=== PATIENT | male | born 1950 | race Caucasian/White ===

== ENCOUNTER 2020-05-21 16:08 | Emergency (ER) | payer OTHER, SELFPAY ==
[2020-05-21 16:10] VITALS: BP 146/82; PULSE 95; RESP 18; TEMP 36.5; O2SAT 95; BMI 30.2
[2020-05-21] MEDS: lidocaine 1% INJ 20 mL 4 ML INTRADERMA (16:25)
[2020-05-21 16:32] VITALS: BP 125/80; O2SAT 94
--- NOTE | 2020-05-21 16:33 | W.ED.WOUNDLC ---
HPI - Wound/Laceration General: Chief Complaint: Wound/Laceration Stated Complaint: finger lac Time Seen by Provider: 05/21/20 16:13 History of Present Illness: HPI narrative: Patient cut left forefinger today while cutting a blockage cheese. Onset (ago): minute(s) Extremity Location: Left: hand Place: home Patient tetanus UTD: Yes Context: accidental Associated symptoms: Reports no associated symptoms Review of Systems Skin/Breast: Reports: other (Laceration left 4 finger from a knife.) Physical Exam Psych: COMMON NORMALS: mental status grossly normal Skin: OTHER: 1 inch laceration left fourth finger MIP area palmar surface horizontal, flexor and extensor tendons intact full range of motion of finger Procedures Laceration Laceration 1: Site: hand Side (If applicable): left Size (cm): 2 Description: linear Depth: simple, single layer Local Anesthetic: lidocaine 1% Amount of anesthesia used (mL): 2 Pre-repair: irrigated extensively Size (cm): 4-0 Number of sutures: 4 Technique: simple, interrupted Course Vital Signs: Vital signs: Vital Signs Temperature 97.7 F 05/21/20 16:10 Pulse Rate 95 05/21/20 16:10 Respiratory Rate 18 05/21/20 16:10 Blood Pressure 125/80 05/21/20 16:32 Pulse Oximetry 94 05/21/20 16:32 Discharge Plan Discharge Patient Disposition: Home Clinical Impression: Laceration Condition: Stable Discharge Orders: Discharge Order (Routine); Ordered 05/21/20 Ordered By: Anthony Danielle Discharge Diet: Usual diet Discharge Activity: Resume usual activity Patient Instructions: Laceration (ED) Activity Restrictions/Additional Instructions: Keep area clean and dry. Sutures out in 7 days. Observe for signs and symptoms of infection that develops follow-up your local provider come back to the ER. Coding Level of Care Code ED Fire And Safety Helper for Elinor Dominguez
[2020-05-21 16:44] VITALS: BP 125/73; PULSE 89; RESP 18; O2SAT 94
--- NOTE | 2020-05-29 09:20 | PC.NURSE ---
Patient returned to ER to have sutures removed. Sutures removed at this time.
== END 2020-05-21 16:41 | disposition home or self-care (01) ==
PROVIDERS: Emergency Provider Nurse Practitioner Family
DX: S61.215A Laceration without foreign body of left ring finger without damage to nail, initial encounter (principal); W26.0XXA Contact with knife, initial encounter
CPT/HCPCS: 12001; 12345; 99281; 99282

== ENCOUNTER 2021-03-23 09:20 | Observation (INO) | payer OTHER, SELFPAY ==
[2021-03-23] VITALS (10 sets, daily range): BP systolic 110–165; BP diastolic 67–90; PULSE 61–108; RESP 17–24; TEMP 36.4–37.4; O2SAT 91–95; BMI 29.5
--- NOTE | 2021-03-23 09:31 | ECG_ITS ---
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 [id number] f
--- NOTE | 2021-03-23 09:31 | XR_ITS ---
WS: [id number] Portable AP upright chest, 03/23/2021 Clinical Data: chest pain Comparison: None. Findings: No nodules, masses or effusions are seen. The heart is normal. The pulmonary vascularity is not increased. No pneumonia or pneumothorax is seen. The aortic arch and descending aorta show mild calcification and tortuosity. Monitor leads on the chest wall. XR/XR chest 1V portable [id number] Impression: Atherosclerosis.
--- NOTE | 2021-03-23 09:33 | W.ED.CHESTPA ---
HPI - Chest Pain General: Chief Complaint: General Medical Stated Complaint: syncopial episodes, chronic chest pains Time Seen by Provider: 03/23/21 09:27 Source: patient Mode of arrival: ambulatory Limitations: no limitations History of Present Illness: HPI narrative: Patient states he has substernal chest pain that started this morning. However, patient states that he has chronic chest pain. Patient states he has had a few episodes of syncope over the last few weeks. He states he had two episodes of syncope this morning. He states he was standing and passed out. He denies any injury. He denies any shortness of breath. He states he has had no previous heart problems. He states on January 26 he was taken off blood thinners. He does not know why he was on blood thinners. Possible history includes diabetes mellitus and hypertension. MD complaint: chest pain and other (Syncope) Pertinent past history: other (Diabetes mellitus and hypertension) Onset (ago): hour(s) (7) Timing of current episode: episodic Prior episodes: Yes Onset: during rest Pain location: substernal Pain radiation: none Severity: mild Quality: aching Relieving factors: nothing Exacerbating factors: nothing Associated symptoms: Reports no associated symptoms and syncope; Deny abdominal pain, dyspnea, fever(s), nausea, palpitations or vomiting Treatment prior to arrival: none Risk Factors: Coronary artery disease risk factors: diabetes and hypertension Thoracic aortic dissection risk factors: none Review of Systems Const: Denies: fever(s) or chills Eyes: Denies: change in vision ENMT: Denies: throat pain Card: Reports: chest pain and syncope; Denies: palpitations Resp: Denies: dyspnea or wheezing GI: Denies: abdominal pain, nausea or vomiting : Denies: flank pain Musc: Denies: neck pain or back pain Skin/Breast: Denies: rash or pruritus Neuro: Denies: headache(s) or numbness in extremities Psych: Denies: anxiety Marck/Lymph: Denies: enlarged lymph nodes PFS ED Supplemental [facility] Information: Past medical history of type 2 diabetes mellitus, hypertension Physical Exam Const: COMMON NORMALS: no acute distress, patient oriented x3, no limitations and well nourished EXAM LIMITATIONS: altered mental status GENERAL APPEARANCE: cooperative and comfortable ORIENTATION/CONSCIOUSNESS: Yes awake, Yes oriented to person, Yes oriented to place and Yes oriented to time HENMT: COMMON NORMALS: normocephalic and atraumatic HEAD & SCALP: normocephalic and atraumatic FACE & SINUS: normal facial exam Eye: COMMON NORMALS: EOMs intact bilaterally Neck/C-Spine: COMMON NORMALS: full ROM, no lymphadenopathy, supple and no meningeal signs GENERAL: Yes normal visual inspection and No JVD Lymph: LYMPHATIC: no lymphadenopathy noted Chest: COMMONS NORMALS: normal inspection of the chest and normal palpation of entire chest wall CHEST: No Ecchymosis present and No rash Resp: COMMON NORMALS: normal respiratory effort, No retractions and clear to auscultation bilaterally EFFORT & INSPECTION: No respiratory distress AUSCULTATION: clear to auscultation bilaterally Cardio: COMMON NORMALS: regular rate, regular rhythm and Peripheral pulses 2+ throughout JUGULAR VENOUS DISTENTION: no JVD RATE: regular rate, tachycardic and Other (Mild tachycardia) RHYTHM: regular rhythm PERIPHERAL PULSES: Peripheral pulses 2+ throughout GI: COMMON NORMALS: Normal to inspection, nondistended, normoactive bowel sounds present and non-tender AUSCULTATION: Yes normoactive bowel sounds : COMMON NORMALS: Yes no CVA tenderness BLADDER/KIDNEY EXAM: Yes no CVA tenderness Back/Pelvis: COMMON NORMALS: no CVA tenderness Extremity: COMMON NORMALS: normal to inspection, full ROM and capillary refill normal Neuro: COMMON NORMALS: patient oriented x3, CN's II-XII intact bilaterally, no focal motor deficits and no sensory deficits noted SENSORIUM/ORIENTATION: Yes oriented to person, Yes oriented to place and Yes oriented to time MENINGEAL SIGNS: Yes no meningeal signs Psych: COMMON NORMALS: mental status grossly normal and Normal thought process present THOUGHT PROCESS: Normal thought process present Skin: COMMON NORMALS: no rashes or lesions noted and no wounds GENERAL SKIN EXAM: no rashes or lesions noted Course Vital Signs: Vital signs: Vital Signs Temperature 97.5 F L 03/23/21 09:27 Pulse Rate 61 03/23/21 09:42 Respiratory Rate 18 03/23/21 09:50 Blood Pressure 165/79 03/23/21 09:42 Pulse Oximetry 95 03/23/21 09:42 MDM - Chest Pain MDM Narrative: Medical decision making narrative: 1009 telemetry shows heart rate 90 and normal sinus rhythm. Blood pressure 121/81 1026: Discussed with hospitalist Dr. Panchal. He will admit the patient but will see the patient in the emergency room first before deciding which bed he will go to. 1046: Dr. Panchal asked that I order CT of the brain due to syncopal event and possible head injury. Patient does not remember hitting his head or have any headache at this time. Patient will be observation to the cardiac stepdown unit. Lab Data: Attestation: I reviewed the patient's lab results. Labs: Lab Results 03/23/21 03/23/21 03/23/21 Range/Units 09:40 09:40 09:40 WBC 4.6 (4.0-10.0) 10^3/ uL RBC 5.09 (4.1-5.3) 10^6/u L Hgb 15.3 (11.7-16.6) g/dL Hct 45.4 (42.0-52.0) % MCV 89.2 (80-94) fL MCH 30.1 (28.0-34.0) pg MCHC 33.7 (30.0-36.0) g/dL RDW 13.2 (12.1-15.1) % Plt Count 193 (130-400) 10^3/c mm MPV 10.5 H (7.4-10.4) fL Neut % (Auto) 63.4 % Lymph % (Auto) 19.6 % [place] % (Auto) 16.3 % Eos % (Auto) 0.0 % Baso % (Auto) 0.7 % Neut # (Auto) 2.92 (1.8-7.7) 10^3/u L Lymph # (Auto) 0.9 (0.8-4.8) 10^3/u L [place] # (Auto) 0.8 (0.2-0.9) 10^3/u L Eos # (Auto) 0.0 (0.0-0.8) 10^3/u L Baso # (Auto) 0.0 (0.0-0.1) 10^3/u L Nucleated RBC % (a uto) 0 % Nucleated RBCs # 0.0 /100WBC PT 13.40 (12.1-14.9) SECO NDS INR 0.99 (0.8-1.2) APTT 28.6 (23.9-36.7) SECO NDS Sodium 135 L (136-145) mmol/L Potassium 4.2 (3.5-5.1) mmol/L Chloride 99 (98-107) mmol/L Carbon Dioxide 26 (22-29) mmol/L Anion Gap 14.2 (5-19) BUN 13 (8-23) mg/dL Creatinine 1.0 (0.7-1.2) mg/dL GFR Calculation 73.9 L (90-130) mL/min Glucose 189 H (65-115) mg/dL Calculated Osmolal ity 285 (285-295) mOsm/k g Calcium 9.0 (8.5-10.5) mg/dL Troponin T Baselin e (0-15) ng/L NT-Pro-B Natriuret Pep 30 (0-125) pg/mL 03/23/21 Range/Units 09:40 WBC (4.0-10.0) 10^3/ uL RBC (4.1-5.3) 10^6/u L Hgb (11.7-16.6) g/dL Hct (42.0-52.0) % MCV (80-94) fL MCH (28.0-34.0) pg MCHC (30.0-36.0) g/dL RDW (12.1-15.1) % Plt Count (130-400) 10^3/c mm MPV (7.4-10.4) fL Neut % (Auto) % Lymph % (Auto) % [place] % (Auto) % Eos % (Auto) % Baso % (Auto) % Neut # (Auto) (1.8-7.7) 10^3/u L Lymph # (Auto) (0.8-4.8) 10^3/u L [place] # (Auto) (0.2-0.9) 10^3/u L Eos # (Auto) (0.0-0.8) 10^3/u L Baso # (Auto) (0.0-0.1) 10^3/u L Nucleated RBC % (a uto) % Nucleated RBCs # /100WBC PT (12.1-14.9) SECO NDS INR (0.8-1.2) APTT (23.9-36.7) SECO NDS Sodium (136-145) mmol/L Potassium (3.5-5.1) mmol/L Chloride (98-107) mmol/L Carbon Dioxide (22-29) mmol/L Anion Gap (5-19) BUN (8-23) mg/dL Creatinine (0.7-1.2) mg/dL GFR Calculation (90-130) mL/min Glucose (65-115) mg/dL Calculated Osmolal ity (285-295) mOsm/k g Calcium (8.5-10.5) mg/dL Troponin T Baselin e 14 (0-15) ng/L NT-Pro-B Natriuret Pep (0-125) pg/mL Imaging Data^: CXR: Attestation: I personally reviewed and interpreted this imaging study as follows: My impression: Chest x-ray appears normal. Nothing acute Radiologist's impression: [address] [id number] ReportSigned Patient: Ramón Armando II #: [id number]: 1950Acct#:[id number]/Sex: 70 / MADM Date: 03/23/21Loc: ERRoom/Bed:Attending Dr: Ordering Provider/Ordering MD: Amado Davis MD Date of Service: 03/23/21 Procedure(s): XR chest 1V portable [id number] Accession Number(s): [id number] Report Number: [id number] WS: [id number] Portable AP upright chest, 03/23/2021 Clinical Data: chest pain Comparison: None. Findings: No nodules, masses or effusions are seen. The heart is normal. The pulmonary vascularity is not increased. No pneumonia or pneumothorax is seen. The aortic arch and descending aorta show mild calcification and tortuosity. Monitor leads on the chest wall. XR/XR chest 1V portable [id number] Impression: Atherosclerosis. Dictated By:Jocelyn Peck MDSigned By:Jocelyn Peck MDSigned Date/Time:03/23/21 0947 EKG Data^: EKG 1: Attestation: I personally reviewed and interpreted this EKG as follows: EKG interpretation date: 03/23/21 EKG interpretation time: 09:38 Prior EKG tracings: not available for review Interpretation: Sinus tachycardia with heart rate of 105. Mild left axis, normal MS interval. Normal QRS interval, normal QT interval, normal P waves, normal T waves. Normal ST segment. No previous EKG to compare to. 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
[2021-03-23 09:45] LABS: Basophils % 0.7 %; Hematocrit 45.4 % (42.0-52.0); Hemoglobin 15.3 g/dL (11.7-16.6); Lymphocytes # 0.9 10^3/uL (0.8-4.8); Lymphocytes % 19.6 %; Mean Corpuscular HGB Conc 33.7 g/dL (30.0-36.0); Mean Corpuscular Hemoglobin 30.1 pg (28.0-34.0); Mean Corpuscular Volume 89.2 fL (80-94); Mean Platelet Volume 10.5 fL (7.4-10.4); Monocytes # 0.8 10^3/uL (0.2-0.9); Monocytes % 16.3 %; Neutrophils # 2.92 10^3/uL (1.8-7.7); Neutrophils % 63.4 %; Nucleated Red Blood Cells % 0 %; Platelet Count 193 10^3/cmm (130-400); Red Blood Count 5.09 10^6/uL (4.1-5.3); Red Cell Distribution Width 13.2 % (12.1-15.1); White Blood Count 4.6 10^3/uL (4.0-10.0)
[2021-03-23] MEDS: aspirin 81 mg Chew Tablet 324 MG PO (09:49)
[2021-03-23] MEDS: morphine 4 mg/mL SDV 1 mL 2 MG IVP (09:50)
[2021-03-23 10:02] LABS: INR 0.99 (0.8-1.2)
[2021-03-23 10:03] LABS: Partial Thromboplastin Time 28.6 SECONDS (23.9-36.7)
[2021-03-23 10:12] LABS: Troponin(5th) Baseline 14 ng/L (0-15)
[2021-03-23 10:20] LABS: Anion Gap 14.2 (5-19); Blood Urea Nitrogen 13 mg/dL (8-23); Carbon Dioxide 26 mmol/L (22-29); Chloride 99 mmol/L (98-107); Creatinine Clr Calc Pharmacy 76.5209; Glomerular Filtration Rate 73.9 mL/min (90-130); Glucose 189 mg/dL (65-115); NT Pro B Type Natriuretic Pept 30 pg/mL (0-125); Osmolality Calculated 285 mOsm/kg (285-295); Potassium 4.2 mmol/L (3.5-5.1); Sodium 135 mmol/L (136-145)
--- NOTE | 2021-03-23 10:46 | CT_ITS ---
WS: [id number] CT HEAD TECHNIQUE: Noncontrast CT of the head obtained from the skullbase to the vertex. CLINICAL INFORMATION: syncope; head injury COMPARISON: None. DLP: 968.[address] scans at [facility] use at least one of these dose optimization techniques: automat ed exposure control; mA and/or kV adjustment per patient size (includes targeted exams where dose is matched to clinical indication); or iterative reconstruction. FINDINGS: No evidence of intracranial hemorrhage or mass effect. Ventricular system and basal cisterns are alcaraz nt. Mild small vessel changes with mild parenchymal volume loss. Chronic lacunar infarcts in the righ t basal ganglia. No extra-axial fluid collections. No evidence of mass or mass effect. Normal pierre-wh ite differentiation. Paranasal sinuses and mastoid air cells are well aerated. .Normal visualized soft tissues. CT/CT head wo con* [id number] IMPRESSION: 1. No evidence of intracranial hemorrhage or mass effect. 2. Mild small vessel changes. Mild parenchymal volume loss. 3. Chronic lacunar infarct right basal ganglia. 4. No acute intracranial findings.
--- NOTE | 2021-03-23 11:04 | PM.HP ---
Providers/Chief Complaint Primary Care Provider: Hunter Davidson CRNA Chief Complaint: Chest Pain, SOB History of Present Illness Ramón Armando II is a 70 year old male who presents to the emergency department with concerns of 3 syncopal episodes today. He reports he is also had a little bit of chest discomfort. In regards to the syncopal episodes the first occurred when he was getting up to urinate. The second happened when he was making some coffee. The third when he had gone downstairs with his coffee. He reports he gets some warning with the episodes, with everything turning dark around him. Most of the episodes he has been able to lower himself to the ground. He is out an unknown amount of time. He denies any loss of bowel or bladder control. There were no witnesses to the incident. He denies any previous history of syncope. In regards to his chest discomfort he reports he frequently has right-sided chest pain, it is usually sharp or achy, and can last minutes. This has been going on for many years. He denies any previous cardiac work-up. He reports he has a significant anxiety problem which may contribute to some of its conditions. He denies any recent fever. He reports he is not had any cough, or congestion. He has not had Covid, nor is he had a vaccine for it. He denies any exposure. He reports he was on a blood thinner several months ago but cannot remember the name of it, or why it was prescribed. He gives this excuse for most of his medical problems. He felt like he was confused when the episodes happened this morning. He reports he had no focal weakness, or dysarthria. Review of Systems General: Reports: 10 or more systems reviewed and unremarkable except in HPI and below Const: Denies: fever(s) or chills Eyes: Denies: change in vision ENMT: Denies: throat pain Card: Reports: chest pain Resp: Denies: dyspnea GI: Denies: abdominal pain : Denies: flank pain Musc: Denies: neck pain Skin/Breast: Denies: rash Neuro: Denies: headache(s) Psych: Reports: anxiety; Denies: depression Endo: Denies: polyuria Marck/Lymph: Denies: easy bruising All/Imm: Denies: urticaria Medications/Allergies Home Medications Medication Instructions Recorded Confirmed Last Taken Type Vitamin B-12 1 tab PO DAILY@0700 03/23/21 03/23/21 03/22/21 History aspirin [Aspir-81] 81 mg PO DAILY@0700 03/23/21 03/23/21 03/22/21 History bupropion HCl 150 mg PO DAILY@0700 03/23/21 03/23/21 03/22/21 History gabapentin 900 mg PO TID@07,12,19 03/23/21 03/23/21 03/22/21 History latanoprost (PF) 1 drp OPHTHALMIC (EYE) BEDTIME 03/23/21 03/23/21 Unknown History metformin 500 mg PO BID@0700,1900 03/23/21 03/23/21 03/22/21 History nitroglycerin 0.4 mg SUBLINGUAL Q5M PRN 03/23/21 03/23/21 Unknown History omeprazole 20 mg PO DAILY@0700 03/23/21 03/23/21 03/22/21 History rosuvastatin 40 mg PO DAILY@0703/23/21 03/23/21 03/22/21 History Allergies Allergy/AdvReac Type Severity Reaction Status Date / Time Penicillins Allergy ADR-Agitate Verified 05/21/20 16:14 d PFSH Acute PFSH: Medical History (Updated 03/23/21 @ 11:17 by Juan Panchal MD) Anxiety Hyperlipidemia Type 2 diabetes mellitus Surgical History (Updated 03/23/21 @ 11:10 by Juan Panchal MD) History of cataract surgery History of nasal surgery Family History (Updated 03/23/21 @ 11:11 by Juan Panchal MD) Other Cancer Dementia Stroke Social History (Updated 03/23/21 @ 11:11 by Juan Panchal MD) Smoking and tobacco status: former smoker Alcohol intake: never Vitals/I&O/Wt Last Vital Signs Temp 97.5 F L 03/23/21 09:27 Pulse 61 03/23/21 09:42 Resp 18 03/23/21 09:50 BP 165/79 03/23/21 09:42 Pulse Ox 95 03/23/21 09:42 Weight last 48 hrs Weight 90.718 kg Physical Exam Narrative: EXAM NARRATIVE: General exam is no apparent distress. He denies any chest discomfort currently. HEENT: Pupils equally round. Oropharynx clear. Neck is supple no lymphadenopathy or thyromegaly Cardiovascular regular rate and rhythm without murmur, no S3 or S4 Lungs clear to auscultation bilaterally. No wheezing or crackles Abdomen is soft with positive bowel sounds. No obvious organomegaly. is deferred Extremities no cyanosis clubbing or edema, cap refill brisk Skin no rash Neuro no obvious focal deficits Data : 03/23/21 09:40 03/23/21 09:40 Other data: PT and PTT are normal Baseline troponin is 14, BNP 30, calcium normal Chest x-ray no infiltrate, atherosclerosis is noted in the aortic knob EKG demonstrates sinus rhythm, left axis deviation, small Q waves inferiorly in 3 and aVF. No obvious acute changes. A&P Assessment and plan (1) Syncope and collapse: Etiology uncertain. He has not had any new medications. Check CT head Telemetry monitoring Check echocardiogram Orthostatic blood pressures Check TSH Check magnesium level Further orders to follow as appropriate Check dimer. If elevated check CTA Status: Acute (2) Chest pain at rest: Patient reports he has chronic chest pain happenings every several weeks, right side, that is similar to his pain he had today. He has never had any work-up of his chest discomfort, and does not have a completely normal EKG. Aspirin, statin Arrange for nuclear stress testing tomorrow. 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 Continue home medications. Full code Lovenox for DVT prophylaxis We will request old records regarding his medical conditions as he is not a great historian. Attestations Medical Necessity Statement*: Will need less than 2 midnight stay for evaluation of syncope, and chest discomfort Time Spent in Patient Care: Greater than 35 minutes Coding Level of Care Code Acute Stereotyper Helper for [facility] Diagnoses Syncope and collapse R55 Chest pain at rest R07.9 Type 2 diabetes mellitus E11.69 Diabetes mellitus complication status: with other specified complication Diabetes mellitus skilled nursing insulin use: unspecified skilled nursing insulin use status Hyperlipidemia E78.5
--- NOTE | 2021-03-23 11:14 | USCV_ITS ---
Ramón Armando II Age: 70 Gender: M : 1950 Exam Date: 03/23/2021 11:59 Ordering Phys: Juan Panchal MD Technologist: Tomasa Hernandez Exam Location: [facility] [place] Indication: SYNCOPE BP: 133 / 91 HR: 85 Rhythm: Sinus Technical Quality: Technically difficult study MEASUREMENTS (Male / Female) Normal Values 2D ECHO LV Diastolic Diameter PLAX 3.9 cm 4.2 - 5.9 / 3.9 - 5.3 cm LV Systolic Diameter PLAX 2.6 cm LV Chamber Size 3.9 cm IVS Diastolic Thickness 1.3 cm 0.6 - 1.0 / 0.6 - 0.9 cm IVS Systolic Thickness 1.3 cm LVPW Diastolic Thickness 1.6 cm 0.6 - 1.0 / 0.6 - 0.9 cm LVPW Systolic Thickness 1.7 cm RV Chamber Size 3.1 cm LVOT Diameter 2.2 cm LV Ejection Fraction 2D Teich 59.9 % LV Ejection Fraction MOD 2C 69.2 % LV Ejection Fraction 2C AL 67.8 % LA Diameter 3.3 cm LA Width 3.4 cm LA Height 4.1 cm RA Width 2.9 cm RA Height 3.5 cm Aorta at Sinotubular Diameter 3.0 cm M-MODE LV Diastolic Diameter MM 4.4 cm 4.2 - 5.9 / 3.9 - 5.3 cm LV Systolic Diameter MM 2.7 cm LV Ejection Fraction MM Teich 70.7 % IVS Diastolic Thickness MM 1.6 cm 0.6 - 1.0 / 0.6 - 0.9 cm IVS Systolic Thickness MM 1.8 cm LVPW Diastolic Thickness MM 1.2 cm 0.6 - 1.0 / 0.6 - 0.9 cm LVPW Systolic Thickness MM 1.4 cm Aortic Annulus Diameter 3.8 cm LA Ao Ratio MM 1.0 MV E Point Septal Separation 0.4 cm DOPPLER AV Peak Velocity 108.0 cm/s LVOT Peak Velocity 74.0 cm/s AV Area Cont Eq vti 2.9 cm squared AV Area Cont Eq pk 2.5 cm squared MV Area PHT 4.1 cm squared Mitral E to A Ratio 0.8 MV E' Velocity 37.0 cm/s Mitral E to MV E' Ratio 12.3 Mitral E to LV E' Lateral Ratio 11.7 Mitral E to LV E' Septal Ratio 13.0 TR Peak Velocity 147.9 cm/s TR Peak Gradient 8.7 mmHg TR Mean Velocity 121.8 cm/s TR Mean Gradient 6.2 mmHg TR Velocity Time Integral 30.4 cm TV Peak E Velocity 53.0 cm/s Right Atrial Pressure 3.0 mmHg Pulmonary Artery Systolic Pressu 11.7 mmHg PV Peak Velocity 61.0 cm/s RV Acceleration Time 0.1 s RV Ejection Time 0.3 s RV AcT/ET 0.4 FINDINGS Left Ventricle This is a limited quality echocardiogram because of poor ultrasonic windows. LV is normal in size. LV systolic function is grossly normal. Regional wall motion abnormalities cannot be assessed because of poor visualization. Grade 1 diastolic dysfunction is noted. Right Ventricle Grossly normal in size and function Right Atrium Not well-visualized Left Atrium Normal in size Mitral Valve Grossly normal Aortic Valve Grossly normal Tricuspid Valve Not well-visualized Pulmonic Valve Not visualized Pericardium Gorssly normal Aorta Normal in size CONCLUSIONS This is a limited quality echocardiogram because of poor ultrasonic windows. LV is normal in size. LV systolic function is grossly normal. Regional wall motion abnormalities cannot be assessed because of poor visualization. Grade 1 diastolic dysfunction is noted. Valves are not well visualized however no gross abnormalities. No comparison studies are available. Anand Regalado MD (Electronically Signed) Final Date: 23 March 2021 17:32 S
--- NOTE | 2021-03-23 11:29 | W.ED.GENADLT ---
HPI - General Adult General: Chief complaint: General Medical Stated complaint: syncopial episodes, chronic chest pains Time Seen by Provider: 03/23/21 09:27 Source: patient Mode of arrival: ambulatory Limitations: no limitations PFSH ED PFSH: Medical History (Updated 03/23/21 @ 11:17 by Juan Panchal MD) Anxiety Hyperlipidemia Type 2 diabetes mellitus Surgical History (Updated 03/23/21 @ 11:10 by Juan Panchal MD) History of cataract surgery History of nasal surgery Family History (Updated 03/23/21 @ 11:11 by Juan Panchal MD) Other Cancer Dementia Stroke Social History (Updated 03/23/21 @ 11:11 by Juan Panchal MD) Smoking and tobacco status: former smoker Alcohol intake: never Course Vital Signs: Vital signs: Vital Signs Temperature 97.5 F L 03/23/21 09:27 Pulse Rate 61 03/23/21 09:42 Respiratory Rate 18 03/23/21 09:50 Blood Pressure 165/79 03/23/21 09:42 Pulse Oximetry 95 03/23/21 09:42 [facility] - General Adult Lab Data: Labs: Lab Results 03/23/21 03/23/21 03/23/21 Range/Units 09:40 09:40 09:40 WBC 4.6 (4.0-10.0) 10^3/ uL RBC 5.09 (4.1-5.3) 10^6/u L Hgb 15.3 (11.7-16.6) g/dL Hct 45.4 (42.0-52.0) % MCV 89.2 (80-94) fL MCH 30.1 (28.0-34.0) pg MCHC 33.7 (30.0-36.0) g/dL RDW 13.2 (12.1-15.1) % Plt Count 193 (130-400) 10^3/c mm MPV 10.5 H (7.4-10.4) fL Neut % (Auto) 63.4 % Lymph % (Auto) 19.6 % [place] % (Auto) 16.3 % Eos % (Auto) 0.0 % Baso % (Auto) 0.7 % Neut # (Auto) 2.92 (1.8-7.7) 10^3/u L Lymph # (Auto) 0.9 (0.8-4.8) 10^3/u L [place] # (Auto) 0.8 (0.2-0.9) 10^3/u L Eos # (Auto) 0.0 (0.0-0.8) 10^3/u L Baso # (Auto) 0.0 (0.0-0.1) 10^3/u L Nucleated RBC % (a uto) 0 % Nucleated RBCs # 0.0 /100WBC PT 13.40 (12.1-14.9) SECO NDS INR 0.99 (0.8-1.2) APTT 28.6 (23.9-36.7) SECO NDS Sodium 135 L (136-145) mmol/L Potassium 4.2 (3.5-5.1) mmol/L Chloride 99 (98-107) mmol/L Carbon Dioxide 26 (22-29) mmol/L Anion Gap 14.2 (5-19) BUN 13 (8-23) mg/dL Creatinine 1.0 (0.7-1.2) mg/dL GFR Calculation 73.9 L (90-130) mL/min Glucose 189 H (65-115) mg/dL Calculated Osmolal ity 285 (285-295) mOsm/k g Calcium 9.0 (8.5-10.5) mg/dL Troponin T Baselin e (0-15) ng/L NT-Pro-B Natriuret Pep 30 (0-125) pg/mL 03/23/21 Range/Units 09:40 WBC (4.0-10.0) 10^3/ uL RBC (4.1-5.3) 10^6/u L Hgb (11.7-16.6) g/dL Hct (42.0-52.0) % MCV (80-94) fL MCH (28.0-34.0) pg MCHC (30.0-36.0) g/dL RDW (12.1-15.1) % Plt Count (130-400) 10^3/c mm MPV (7.4-10.4) fL Neut % (Auto) % Lymph % (Auto) % [place] % (Auto) % Eos % (Auto) % Baso % (Auto) % Neut # (Auto) (1.8-7.7) 10^3/u L Lymph # (Auto) (0.8-4.8) 10^3/u L [place] # (Auto) (0.2-0.9) 10^3/u L Eos # (Auto) (0.0-0.8) 10^3/u L Baso # (Auto) (0.0-0.1) 10^3/u L Nucleated RBC % (a uto) % Nucleated RBCs # /100WBC PT (12.1-14.9) SECO NDS INR (0.8-1.2) APTT (23.9-36.7) SECO NDS Sodium (136-145) mmol/L Potassium (3.5-5.1) mmol/L Chloride (98-107) mmol/L Carbon Dioxide (22-29) mmol/L Anion Gap (5-19) BUN (8-23) mg/dL Creatinine (0.7-1.2) mg/dL GFR Calculation (90-130) mL/min Glucose (65-115) mg/dL Calculated Osmolal ity (285-295) mOsm/k g Calcium (8.5-10.5) mg/dL Troponin T Baselin e 14 (0-15) ng/L NT-Pro-B Natriuret Pep (0-125) pg/mL EKG Data^: EKG 2: Attestation: I personally reviewed and interpreted this EKG as follows: EKG interpretation date: 03/23/21 EKG interpretation time: 11:30 Prior EKG tracings: available for review Interpretation: EKG at 11:25 AM showed normal sinus rhythm heart rate 90. Continued left axis. No change from previous EKG, except for heart rate. Computer generated interpretation: Chest X-Ray 03/23/21 09:31 Impression: Atherosclerosis. Head CT 03/23/21 10:46 IMPRESSION: 1. No evidence of intracranial hemorrhage or mass effect. 2. Mild small vessel changes. Mild parenchymal volume loss. 3. Chronic lacunar infarct right basal ganglia. 4. No acute intracranial findings. Discharge Plan Discharge Patient Disposition: Placed in Observation Clinical Impression: Chest pain at rest, Syncope and collapse Type 2 diabetes mellitus Qualifiers: Diabetes mellitus custodial insulin use: unspecified long term care administrator insulin use status Diabetes mellitus complication status: with other specified complication Qualified Code(s): E11.69 - Type 2 diabetes mellitus with other specified complication Coding Level of Care Code ED Network Desktop Support Specialist for Elinor Dominguez
--- NOTE | 2021-03-23 11:31 | ECG_ITS ---
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 Measurements Intervals [place] Rate: 90 P: 64 IA: 161 QRS: -19 QRSD: 87 T: 10 QT: 344 QTc: 423 Interpretive Statements SINUS RHYTHM INFERIOR MYOCARDIAL INFARCTION [40+ ms Q WAVE AND/OR ST/T ABNORMALITY IN II/aVF], PROBABLY OLD Compared to ECG 03/23/2021 09:31:19 Sinus tachycardia no longer present Myocardial infarct finding still present Electronically Signed On 03-24-2021 7:19:40 CDT by Rena Sanchez M.D. [id number]
[2021-03-23 11:45] LABS: Magnesium 1.6 mg/dL (1.7-2.3); Thyroid Stimulating Hormone 2.48 uIU/mL (0.27-4.20)
--- NOTE | 2021-03-23 11:51 | W.ED.GENADLT ---
HPI - General Adult General: Chief complaint: General Medical Stated complaint: syncopial episodes, chronic chest pains Time Seen by Provider: 03/23/21 09:27 Source: patient Mode of arrival: ambulatory Limitations: no limitations PFSH ED PFSH: Medical History (Updated 03/23/21 @ 11:17 by Juan Panchal MD) Anxiety Hyperlipidemia Type 2 diabetes mellitus Surgical History (Updated 03/23/21 @ 11:10 by Juan Panchal MD) History of cataract surgery History of nasal surgery Family History (Updated 03/23/21 @ 11:11 by Juan Panchal MD) Other Cancer Dementia Stroke Social History (Updated 03/23/21 @ 11:11 by Juan Panchal MD) Smoking and tobacco status: former smoker Alcohol intake: never Course Vital Signs: Vital signs: Vital Signs Temperature 99.3 F 03/23/21 11:42 Pulse Rate 90 03/23/21 11:42 Respiratory Rate 24 H 03/23/21 11:42 Blood Pressure 143/86 03/23/21 11:42 Pulse Oximetry 93 03/23/21 11:42 [facility] - General Adult Lab Data: Labs: Lab Results 03/23/21 03/23/21 03/23/21 Range/Units 09:40 09:40 09:40 WBC 4.6 (4.0-10.0) 10^3/ uL RBC 5.09 (4.1-5.3) 10^6/u L Hgb 15.3 (11.7-16.6) g/dL Hct 45.4 (42.0-52.0) % MCV 89.2 (80-94) fL MCH 30.1 (28.0-34.0) pg MCHC 33.7 (30.0-36.0) g/dL RDW 13.2 (12.1-15.1) % Plt Count 193 (130-400) 10^3/c mm MPV 10.5 H (7.4-10.4) fL Neut % (Auto) 63.4 % Lymph % (Auto) 19.6 % [place] % (Auto) 16.3 % Eos % (Auto) 0.0 % Baso % (Auto) 0.7 % Neut # (Auto) 2.92 (1.8-7.7) 10^3/u L Lymph # (Auto) 0.9 (0.8-4.8) 10^3/u L [place] # (Auto) 0.8 (0.2-0.9) 10^3/u L Eos # (Auto) 0.0 (0.0-0.8) 10^3/u L Baso # (Auto) 0.0 (0.0-0.1) 10^3/u L Nucleated RBC % (a uto) 0 % Nucleated RBCs # 0.0 /100WBC PT 13.40 (12.1-14.9) SECO NDS INR 0.99 (0.8-1.2) APTT 28.6 (23.9-36.7) SECO NDS Sodium 135 L (136-145) mmol/L Potassium 4.2 (3.5-5.1) mmol/L Chloride 99 (98-107) mmol/L Carbon Dioxide 26 (22-29) mmol/L Anion Gap 14.2 (5-19) BUN 13 (8-23) mg/dL Creatinine 1.0 (0.7-1.2) mg/dL GFR Calculation 73.9 L (90-130) mL/min Glucose 189 H (65-115) mg/dL Calculated Osmolal ity 285 (285-295) mOsm/k g Calcium 9.0 (8.5-10.5) mg/dL Magnesium (1.7-2.3) mg/dL Troponin T Baselin e (0-15) ng/L NT-Pro-B Natriuret Pep 30 (0-125) pg/mL TSH (0.27-4.20) uIU/ mL 03/23/21 03/23/21 Range/Units 09:40 09:40 WBC (4.0-10.0) 10^3/ uL RBC (4.1-5.3) 10^6/u L Hgb (11.7-16.6) g/dL Hct (42.0-52.0) % MCV (80-94) fL MCH (28.0-34.0) pg MCHC (30.0-36.0) g/dL RDW (12.1-15.1) % Plt Count (130-400) 10^3/c mm MPV (7.4-10.4) fL Neut % (Auto) % Lymph % (Auto) % [place] % (Auto) % Eos % (Auto) % Baso % (Auto) % Neut # (Auto) (1.8-7.7) 10^3/u L Lymph # (Auto) (0.8-4.8) 10^3/u L [place] # (Auto) (0.2-0.9) 10^3/u L Eos # (Auto) (0.0-0.8) 10^3/u L Baso # (Auto) (0.0-0.1) 10^3/u L Nucleated RBC % (a uto) % Nucleated RBCs # /100WBC PT (12.1-14.9) SECO NDS INR (0.8-1.2) APTT (23.9-36.7) SECO NDS Sodium (136-145) mmol/L Potassium (3.5-5.1) mmol/L Chloride (98-107) mmol/L Carbon Dioxide (22-29) mmol/L Anion Gap (5-19) BUN (8-23) mg/dL Creatinine (0.7-1.2) mg/dL GFR Calculation (90-130) mL/min Glucose (65-115) mg/dL Calculated Osmolal ity (285-295) mOsm/k g Calcium (8.5-10.5) mg/dL Magnesium 1.6 L (1.7-2.3) mg/dL Troponin T Baselin e 14 (0-15) ng/L NT-Pro-B Natriuret Pep (0-125) pg/mL TSH 2.48 (0.27-4.20) uIU/ mL Imaging Data^: CT Head: Radiologist's impression: 31 Amado Davis MD Find Patient Ramón Powell II 70 M 1950 ACTIVITY DATE EXAM STATUS AUTHOR 03/23/21 10:46 Signed Robby Galvan 03/23/21 09:31 Signed Jocelyn Peck ORDER STATUS ORDER START ORDER DETAIL CV echo transesophageal [id number] Cancelled 03/23/21 11:14 CV. echo complete* [id number] Ordered 03/23/21 11:[address] [id number] Scan ReportSigned Patient: Ramón Armando II #: [id number]: 1950Acct#:[id number]/Sex: 70 / MADM Date: 03/23/21Loc: ERRoom/Bed:Attending Dr: Ordering Provider/Ordering MD: Amado Davis MD Date of Service: 03/23/21 Procedure(s): CT head wo con* [id number] Accession Number(s): [id number] Report Number: [id number] WS: [id number] CT HEAD TECHNIQUE: Noncontrast CT of the head obtained from the skullbase to the vertex. CLINICAL INFORMATION: syncope; head injury COMPARISON: None. DLP: 968.[address] scans at [facility] use at least one of these dose optimization techniques: automated exposure control; mA and/or kV adjustment per patient size (includes targeted exams where dose is matched to clinical indication); or iterative reconstruction. FINDINGS: No evidence of intracranial hemorrhage or mass effect. Ventricular system and basal cisterns are patent. Mild small vessel changes with mild parenchymal volume loss. Chronic lacunar infarcts in the right basal ganglia. No extra-axial fluid collections. No evidence of mass or mass effect. Normal pierre-white differentiation. Paranasal sinuses and mastoid air cells are well aerated. .Normal visualized soft tissues. CT/CT head wo con* [id number] IMPRESSION: 1. No evidence of intracranial hemorrhage or mass effect. 2. Mild small vessel changes. Mild parenchymal volume loss. 3. Chronic lacunar infarct right basal ganglia. 4. No acute intracranial findings. Dictated By:Robby Galvan MDSigned By:Robby Galvan MDSigned Date/Time:03/23/21 1126 Discharge Plan Discharge Patient Disposition: Placed in Observation Clinical Impression: Chest pain at rest, Syncope and collapse Type 2 diabetes mellitus Qualifiers: Diabetes mellitus superintendent marine oil terminal insulin use: unspecified superintendent marine oil terminal insulin use status Diabetes mellitus complication status: with other specified complication Qualified Code(s): E11.69 - Type 2 diabetes mellitus with other specified complication Coding Level of Care Code ED Plastic Printer for Elinor Dominguez
[2021-03-23 12:11] LABS: D Dimer 0.45 ug/mIFEU (0-0.59)
[2021-03-23 12:13] LABS: Troponin 5 2HR 10.73 ng/L (0-15)
[2021-03-23 12:16] LABS: Troponin 5 2HR Delta -3.27 ABS# (0-10)
[2021-03-23] MEDS: magnesium sulfate premix 2 GM/50 ML PIGGYBACK IV (14:35)
--- NOTE | 2021-03-23 15:05 | ECG_ITS ---
[facility] Test Date: 2021-03-24 Pat Name: Ramón Armando II Department: Room: 250 Gender: Male Shared Services Representative: : 1950 Requested By: Juan Lopez Order Number: [id number] Adwoa MD: Lizette Hernandez M.D. Interpretive Statements NAME OF STUDY: LEXISCAN SESTAMIBI STRESS TEST INDICATION: Chest Pain PROCEDURE: At the baseline, the EKG revealed normal sinus rhythm with a poor R wave progression. 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 The baseline blood pressure was 147/90 mm Hg with a heart rate of 99 beats/min. Lexiscan was infused over a period of 20 seconds. A total of 0.4 milligrams of Lexiscan was infused. The stress phase was continued for a total of 5 minutes. Heart rate at the end of the stress phase was 99 with a blood pressure 148/80. The EKG at the peak infusion revealed no significant changes. Sestamibi was injected 20 seconds after the Lexiscan infusion. Blood pressure at the end of the recovery phase was 142/82 with a heart rate of 96 per minute. CONCLUSION: 1. No significant EKG changes with the LexiScan infusion 2. No LexiScan induced chest pain or cardiac arrhythmia 3. Normal blood pressure and heart rate response 4. Sestamibi/sestamibi perfusion scan pending; see separate report. Electronically Signed On 03-25-2021 10:48:08 CDT by Lizette Hernandez M.D. [id number]
--- NOTE | 2021-03-23 15:31 | ECG_ITS ---
[facility] ED Test Date: 2021-03-23 Pat Name: Ramón Armando II Department: Room: 250 Gender: Male Outside Medical Sales Representative: : 1950 Requested By: Amado Harris Order Number: [id number] Adwoa MD: Rena Sanchez M.D. Measurements Intervals [place] Rate: 83 P: 68 SC: 177 QRS: -8 QRSD: 86 T: 7 QT: 329 QTc: 388 Interpretive Statements SINUS RHYTHM INFERIOR MYOCARDIAL INFARCTION [40+ ms Q WAVE AND/OR ST/T ABNORMALITY IN II/aVF], PROBABLY OLD Compared to ECG 03/23/2021 11:25:57 No significant changes Electronically Signed On 03-24-2021 7:15:24 CDT by Rena Sanchez M.D. [id number]
[2021-03-23] MEDS: gabapentin 300 mg Capsule 600 MG PO ×2 (16:55→21:06)
[2021-03-23] MEDS: enoxaparin 40 mg/0.4 mL Syringe SUBCUT (16:55)
[2021-03-23 17:54] LABS: Glucose Point of Care 171 mg/dL (70-110)
[2021-03-23 18:46] LABS: Troponin 5 6HR 9.52 ng/L (0-15)
[2021-03-23 18:48] LABS: Troponin 5 6HR Delta -4.48 ng/L (0-12)
[2021-03-23 20:55] LABS: Glucose Point of Care 152 mg/dL (70-110)
[2021-03-24] VITALS (7 sets, daily range): BP systolic 104–145; BP diastolic 69–93; PULSE 87–102; RESP 18; TEMP 36.8–37.2; O2SAT 92–96
[2021-03-24 06:18] LABS: Glucose Point of Care 167 mg/dL (70-110)
--- NOTE | 2021-03-24 06:20 | NMCV_ITS ---
NM francheska perf SPECT r/s* [id number] Ramón Armando II Age: 70 Gender: M : 1950 Exam Date: 03/24/2021 07:36 Ordering Phys: Juan Panchal MD Technologist: BROOKE Jenkins Exam Location: [facility] Indications: CHEST PAIN; SOB STRESS TEST Please see separate stress test report in [facility]any for full findings IMAGE PROTOCOL Rest/Stress 1 Lexiscan Day Radiopharmaceutical Dose (mCi) Administration Site Administered by Rest: Tc-99m 10.8 IV BROOKE Butcher Sestamibi Stress:Tc-99m 32.6 IV BROOKE Butcher Sestamibi Rest: 24-Mar-2021 60 Discovery 630 Stress: 24-Mar-2021 30 Discovery 630 0.4mg Lexiscan. Images obtained in supine and prone position. SPECT RESULTS Technical Quality: Excellent Raw Data Analysis: Normal Image Corrections: No attenuation or motion correction applied Summed Stress Score: 1 Summed Rest Score: 3 Summed Difference Score: 0 PERFUSION FINDINGS Small area of decreased tracer uptake in the inferior wall region, only with the supine imaging. No significant reversibility was noted in this area. FUNCTIONAL RESULTS (calculated via Gated SPECT) Stress Image LV EF (%): 81 Stress EDV (mL):79 TID: 0.78 Stress ESV (mL):15 FUNCTIONAL FINDINGS: Segmental wall motion analysis revealing no gross wall motion normalities IMPRESSIONS 1. Unremarkable myocardial perfusion imaging. 2. Normal LV ejection fraction of 81%. 3. LV wall motion analysis revealing no gross wall motion normalities. 4. Normal LV volume. No significant coronary ischemia, based on the above finding Dr Lizette Hernandez MD FACC (Electronically Signed) Final Date: 24 March 2021 12:55 S
[2021-03-24 06:26] LABS: Basophils % 0.3 %; Eosinophils # 0.2 10^3/uL (0.0-0.8); Eosinophils % 2.5 %; Hemoglobin 15.4 g/dL (11.7-16.6); Lymphocytes # 1.2 10^3/uL (0.8-4.8); Lymphocytes % 20.1 %; Mean Corpuscular HGB Conc 33.5 g/dL (30.0-36.0); Mean Corpuscular Hemoglobin 30.5 pg (28.0-34.0); Mean Corpuscular Volume 91.1 fL (80-94); Mean Platelet Volume 10.5 fL (7.4-10.4); Monocytes # 0.8 10^3/uL (0.2-0.9); Monocytes % 13.4 %; Neutrophils # 3.78 10^3/uL (1.8-7.7); Neutrophils % 63.5 %; Nucleated Red Blood Cells % 0 %; Platelet Count 176 10^3/cmm (130-400); Red Blood Count 5.05 10^6/uL (4.1-5.3); Red Cell Distribution Width 13.4 % (12.1-15.1)
[2021-03-24] MEDS: aspirin 81 mg EC Tablet PO (06:40)
[2021-03-24] MEDS: buPROPion SR (12 HR) 150 mg Tablet PO (06:40)
[2021-03-24] MEDS: atorvastatin 40 mg Tablet 80 MG PO (06:40)
[2021-03-24 06:48] LABS: Alanine Aminotransferase 36 U/L (0-41); Albumin Level 3.8 g/dL (3.5-5.2); Alkaline Phosphatase 108 IU/L (40-130); Anion Gap 16.9 (5-19); Aspartate Amino Transferase 29 U/L (0-40); Blood Urea Nitrogen 15 mg/dL (8-23); Calcium 8.2 mg/dL (8.5-10.5); Carbon Dioxide 23 mmol/L (22-29); Chloride 96 mmol/L (98-107); Creatinine Clr Calc Pharmacy 76.5209; Globulin 2.8 g/dL (1.3-4.6); Glomerular Filtration Rate 73.9 mL/min (90-130); Glucose 163 mg/dL (65-115); Osmolality Calculated 278 mOsm/kg (285-295); Potassium 3.9 mmol/L (3.5-5.1); Sodium 132 mmol/L (136-145); Total Bilirubin 0.6 mg/dL (0.15-1.2); Total Protein 6.6 g/dL (6.6-8.7)
--- NOTE | 2021-03-24 07:36 | PC.NURSE ---
Pt off the floor at this time for stress test.
[2021-03-24] MEDS: regadenoson 0.4 Mg/5 ml Syringe IVP (08:32)
[2021-03-24 08:40] LABS: Cortisol Random 27.23 ug/dL (2.47-19.5)
[2021-03-24] MEDS: gabapentin 300 mg Capsule 600 MG PO (10:11)
[2021-03-24] MEDS: pantoprazole DR 40 mg Tablet PO (10:12)
[2021-03-24] MEDS: sodium chloride 0.9% 1,000 ML 75 ML IV (10:12)
--- NOTE | 2021-03-24 10:50 | PC.CHAP ---
Pastoral Care Encounter/Spiritual Assessment Type of Contact [] Declined office supervisor visit [] Patient/Family/Request visit [] Outpatient visit [] Follow-up visit [] Physician referral [] Code/Alert [x] Routine visit [] Staff referral [] Actively dying [] Patient sleeping [] Family support [] [] Out of room [] Palliative care [] [x] Receiving care in room [] Pre-surgical visit [] Trauma [] Long length of stay [] ICU visit [] Other: Relational/Emotional Strength [x] Patient feels connected with others/family/visitors/staff [] Distress [] Loneliness/isolation [] Abandonment Spirituality of Patient [x] Person of Lashay [] Attends Mormon of their [place] [x] Believes in Prayer [] Reads Bible or Hoahaoism materials [] There are Spiritual issues to be addressed Leather Belt Loop Cutter Interventions [x] Prayer [x] Active listening [x] Non-anxious presence [x] Spiritual/emotional support [] Crisis/trauma care [x] Spiritual counseling [] Bereavement support [] Provided bereavement packet [] Provided Bible/devotional materials [] Provided toy/stuffed animal, coloring book to patient or family member [] Provided Communion [] Anointing/[place] [] Salvation [x] Completed spiritual assessment [] Other: Impact on Illness or Injury [] Angry [] Fearful [x] Anxious [] Often cries [] Exhaustion [] Unable to work [] Unable to attend pentecostalism [] Unable to walk/stand [] Unable to read [] Unable to drive [] Unable to eat/drink [] Unable to sleep [] Unable to be with family [] Patient intubated [] Other: Summary SOB waiting the results of tests, feels good has a good attitude going home soon Time spent with patient 10 mins
[2021-03-24 11:08] LABS: Glucose Point of Care 238 mg/dL (70-110)
[2021-03-24 12:21] LABS: Bilirubin Urine Neg (Negative); Blood Urine Neg (Negative); Glucose Urine UA 4+ (Normal); Ketones Urine 1+ (Negative); Leukocyte Esterase Urine Negative (Negative); Nitrate Urine Negative (Negative); Protein Urine Neg (Negative); Urine Appearance Clear (CLEAR); Urine Color Yellow (Yellow); Urobilinogen Urine Norm (Negative); pH Urine 5 (5-7)
[2021-03-24 12:22] LABS: Add Urine Culture? No; Mucus Urine 2+ /hpf
--- NOTE | 2021-03-24 13:07 | PM.PN ---
Subjective Subjective: Interval history: Ramón is a 70-year-old white male who presented to the hospital with history of chest discomfort, on the right side of his chest. He gave a history of some chronicity of this. He also reported syncopal episodes, described as dizziness, closing and and then syncope. He reports no loss of bowel bladder control or biting his tongue. There had been no new medication changes. He was placed in the hospital on an observation status and ruled out for myocardial infarction. An echocardiogram was performed which grossly appeared to have normal ejection fraction, 1/4 diastolic dysfunction no significant valvular abnormalities. Telemetry was monitored during his entire hospital course and did not demonstrate any arrhythmia. Secondary to his chest discomfort a nuclear stress test was performed on March 24 which did not demonstrate any reversible ischemia. Orthostatic blood pressures were taken when he came in, and some orthostatic change was noted. On repeat after fluids no orthostatic change was noted. Of note during his hospital course his Neurontin dose was also decreased to 600 mg 3 times daily in case this was playing any role. By March 24 he had no chest discomfort. He had been up walking in the halls. He had no recurrence of dizziness, and certainly no syncope. It was thought he could go home, and follow-[facility]. For any recurrence of symptoms, or chest discomfort he should return to the hospital. I discussed with him other testing or work-up may be needed if symptoms recur, and other adjustments of his medication might be needed. This would be done by his primary care provider at the [facility]. Other testing in the hospital included a CBC, CMP, D-dimer, random cortisol, TSH, urinalysis, and head CT which showed no cause of his syncope or his chest discomfort. It should be noted that he had a chronic appearing lacunar infarct right basal ganglia on his CT. Medications: Reviewed: Yes Vitals/I&O/Wt Last Vital Signs Temp 98.5 F 03/24/21 11:23 Pulse 92 03/24/21 12:18 Resp 18 03/24/21 11:23 BP 133/74 03/24/21 12:18 Pulse Ox 96 03/24/21 11:23 03/23/21 03/24/21 03/24/21 22:59 06:59 14:59 Intake Total 50 / 50 720 / 770 220 / 220 Output Total 150 / 150 Balance 50 / 50 570 / 620 220 / 220 Weight last 48 hrs Weight 90.718 kg Physical Exam Narrative: EXAM NARRATIVE: General exam is no apparent distress Neck is supple no lymphadenopathy or thyromegaly Cardiovascular regular rate and rhythm without murmur, no S3 or S4 Lungs clear no wheezing or crackles Abdomen is soft with positive bowel sounds. No obvious organomegaly Extremities no cyanosis clubbing or edema Data : 03/24/21 06:09 03/24/21 06:09 Coding Level of Care Code Acute Local Company Flatbed Truck Driver for Saadiag Alberto
--- NOTE | 2021-03-24 13:13 | PM.DCS ---
Discharge Providers Date of Admission: 03/23/21 11:26 Date of Discharge: March 24, 2021 Attending Provider at Admission: Juan Panchal MD Attending Provider at Discharge: Juan Panchal MD Primary Care Provider: Hunter Davidson CRNA Diagnoses at Discharge Discharge Diagnosis (1) Syncope and collapse: Status: Acute (2) Chest pain at rest: Status: Acute (3) Type 2 diabetes mellitus: Status: Acute Qualifiers: Diabetes mellitus complication status: with other specified complication Diabetes mellitus care home insulin use: unspecified care home insulin use status Qualified Code(s): E11.69 - Type 2 diabetes mellitus with other specified complication (4) Hyperlipidemia: Status: Acute Reason for Visit Reason for Visit: Chest Pain, SOB Hospital Course Hospital Course Ramón is a 70-year-old white male who presented to the emergency department with complaints of some chest discomfort on the right side of his chest. He reported there was some chronicity to this complaint, and that he had it every several months for many years. He also complained of 2-3 syncopal episodes. He described them as feelings of dizziness, culminating in lowering himself to the floor and passing out for an unspecified amount of time. Initial evaluation in the emergency department demonstrated a normal troponin, and a nonischemic EKG. He was placed in the hospital under observation and monitored on telemetry. No arrhythmias were noted. Serial troponins were drawn and no evidence of myocardial infarction. Echocardiogram was performed which demonstrated normal EF, no major valvular abnormalities, and 1/4 diastolic dysfunction. Nuclear stress test was performed on March 24 which demonstrated no reversible ischemia. Other testing done while in the hospital included a CBC, CMP, cortisol level, TSH, D-dimer, urinalysis all of which did not show any causative reason for his syncope or chest discomfort. It was noted while he was in the hospital that his initial set of vitals checking for orthostasis did not have a significant drop in blood pressure. After hydration, this went away. While in the hospital his Neurontin dose was also decreased in case this was a playing a role in these episodes. While in the hospital he was able to ambulate without difficulty and had no recurrence of his chest pain nor his syncope. He will follow-up with primary care provider in 3 to [facility]. He will return for any syncope, return of chest discomfort or other concerns. Chest x-ray and head CT were also completed. It should be noted head CT demonstrated a chronic lacunar infarct, right basal ganglia. Physical Exam Narrative: EXAM NARRATIVE: General exam is no apparent distress Neurologic exam normal Neck is supple no lymphadenopathy or thyromegaly Cardiovascular regular rate and rhythm without murmur Lungs clear Abdomen is soft with positive bowel sounds Extremities no cyanosis clubbing or edema Discharge Data Data Completed and Pending: Completed Studies During Hospitalization Category Date Time Status CT head wo con* [id number] Urgent Cat Scan 03/23/21 10:46 Completed Sestamibi Stress Test Request Routi ne Exams 03/23/21 15:05 Draft XR chest 1V rachael ble [id number] Stat Exams 03/23/21 09:31 Completed NM francheska perf SPECT r/s* [id number] Routin e Nuc Med 03/24/21 06:20 Completed CV. echo complete * [id number] Routine Ultrasound 03/23/21 11:14 Completed Labs from last 24 hours 03/24/21 03/24/21 03/24/21 11:25 10:51 06:09 WBC RBC Hgb Hct MCV MCH MCHC RDW Plt Count MPV Neut % (Auto) Lymph % (Auto) [place] % (Auto) Eos % (Auto) Baso % (Auto) Neut # (Auto) Lymph # (Auto) [place] # (Auto) Eos # (Auto) Baso # (Auto) Nucleated RBC % (a uto) Nucleated RBCs # Sodium Potassium Chloride Carbon Dioxide Anion Gap BUN Creatinine GFR Calculation Glucose POC Glucose 238 H Calculated Osmolal ity Calcium Total Bilirubin AST ALT Alkaline Phosphata se Troponin T Hi Sens 6Hr Troponin T Hi Sens 6Hr Delta Total Protein Albumin Globulin Random Cortisol 27.23 H Urine Color Yellow Urine Appearance Clear Urine pH 5 Ur Specific Gravit y 1.020 Urine Protein Neg Urine Glucose (UA) 4+ H Urine Ketones 1+ H Urine Blood Neg Urine Nitrate Negative Urine Bilirubin Neg Urine Urobilinogen Norm Ur Leukocyte [place] ase Negative Urine RBC None Urine WBC None Ur Squamous Epith Cells 10-15 H Amorphous Sediment Not Reportable Urine Bacteria None Urine Mucus 2+ 03/24/21 03/24/21 03/24/21 06:09 06:09 06:04 WBC 6.0 RBC 5.05 Hgb 15.4 Hct 46.0 MCV 91.1 MCH 30.5 MCHC 33.5 RDW 13.4 Plt Count 176 MPV 10.5 H Neut % (Auto) 63.5 Lymph % (Auto) 20.1 [place] % (Auto) 13.4 Eos % (Auto) 2.5 Baso % (Auto) 0.3 Neut # (Auto) 3.78 Lymph # (Auto) 1.2 [place] # (Auto) 0.8 Eos # (Auto) 0.2 Baso # (Auto) 0.0 Nucleated RBC % (a uto) 0 Nucleated RBCs # 0.0 Sodium 132 L Potassium 3.9 Chloride 96 L Carbon Dioxide 23 Anion Gap 16.9 BUN 15 Creatinine 1.0 GFR Calculation 73.9 L Glucose 163 H POC Glucose 167 H Calculated Osmolal ity 278 L Calcium 8.2 L Total Bilirubin 0.6 AST 29 ALT 36 Alkaline Phosphata se 108 Troponin T Hi Sens 6Hr Troponin T Hi Sens 6Hr Delta Total Protein 6.6 Albumin 3.8 Globulin 2.8 Random Cortisol Urine Color Urine Appearance Urine pH Ur Specific Gravit y Urine Protein Urine Glucose (UA) Urine Ketones Urine Blood Urine Nitrate Urine Bilirubin Urine Urobilinogen Ur Leukocyte [place] ase Urine RBC Urine WBC Ur Squamous Epith Cells Amorphous Sediment Urine Bacteria Urine Mucus 03/23/21 03/23/21 03/23/21 20:16 16:06 15:55 WBC RBC Hgb Hct MCV MCH MCHC RDW Plt Count MPV Neut % (Auto) Lymph % (Auto) [place] % (Auto) Eos % (Auto) Baso % (Auto) Neut # (Auto) Lymph # (Auto) [place] # (Auto) Eos # (Auto) Baso # (Auto) Nucleated RBC % (a uto) Nucleated RBCs # Sodium Potassium Chloride Carbon Dioxide Anion Gap BUN Creatinine GFR Calculation Glucose POC Glucose 152 H 171 H Calculated Osmolal ity Calcium Total Bilirubin AST ALT Alkaline Phosphata se Troponin T Hi Sens 6Hr 9.52 Troponin T Hi Sens 6Hr Delta -4.48 L Total Protein Albumin Globulin Random Cortisol Urine Color Urine Appearance Urine pH Ur Specific Gravit y Urine Protein Urine Glucose (UA) Urine Ketones Urine Blood Urine Nitrate Urine Bilirubin Urine Urobilinogen Ur Leukocyte [place] ase Urine RBC Urine WBC Ur Squamous Epith Cells Amorphous Sediment Urine Bacteria Urine Mucus Vitals: Last Vital Signs Temp 98.5 F 03/24/21 11:23 Pulse 92 03/24/21 12:18 Resp 18 03/24/21 11:23 BP 133/74 03/24/21 12:18 Pulse Ox 96 03/24/21 11:23 Discharge Plan Discharge Patient Disposition: Home Condition: Stable Prescriptions: New gabapentin 300 mg Capsule 600 mg PO TID Qty: 90 RF: 0 Continued metformin 500 mg Tablet 500 mg PO BID@0700,1900 RF: 0 bupropion HCl 150 mg Tablet Sustained-Release 12 Hr 150 mg PO DAILY@0700 RF: 0 aspirin 81 mg Tablet,Delayed Release (Dr/Ec) 81 mg PO DAILY@0700 RF: 0 omeprazole 20 mg Capsule,Delayed Release(Dr/Ec) 20 mg PO DAILY@0700 RF: 0 rosuvastatin 40 mg Tablet 40 mg PO DAILY@0700 RF: 0 latanoprost (PF) 0.005 % Drops 1 drp OPHTHALMIC (EYE) BEDTIME RF: 0 Vitamin B-12 1 tab PO DAILY@0700 RF: 0 Discontinued nitroglycerin 0.4 mg Tablet, Sublingual 0.4 mg SUBLINGUAL Q5M PRN (Reason: Chest Pain) RF: 0 gabapentin 300 mg Capsule 900 mg PO TID@07,, RF: 0 Discharge Orders: Discharge Order (Routine); Ordered 03/24/21 Ordered By: Juan Panchal Referrals: [facility] in [place] [Other] (Please call this number (press option [phone]) to get your information updated so they can get you set up with a doctor at the [facility]. ) Hunter Davidson CRNA [Primary Care Provider] - Discharge Diet: Cardiac Discharge Activity: Increase activity as tolerated Patient Instructions: Opioid Safety Activity Restrictions/Additional Instructions: Follow-up with the [facility] in [place] within 4 to 7 days Note that your Neurontin has been decreased, and nitroglycerin discontinued. Encourage fluids Follow-up promptly for any recurrence of fainting or severe chest discomfort. 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
== END 2021-03-24 14:36 | disposition home or self-care (01) ==
LOC: ER 10:48 → MEDSURG 14:16
PROVIDERS: Admitting Provider Internal Medicine; Emergency Provider Family Medicine; PCP Nurse Anesthetist, Certified Registered; Visit Provider Internal Medicine
DX: R55 Syncope and collapse (principal); R07.89 Other chest pain; E11.69 Type 2 diabetes mellitus with other specified complication; E78.5 Hyperlipidemia, unspecified; F41.9 Anxiety disorder, unspecified; Z87.891 Personal history of nicotine dependence
CPT/HCPCS: 36415; 36416; 70450; 71045; 78452; 80048; 80053; 81001; 82533; 82962; 83735; 83880; 84443; 84484; 85025; 85378; 85610; 85730; 93005; 93017; 93306; 96361; 96365; 96372; 96375; 99285; A9500; G0378; J1650; J1815; J2270; J2785; J3475; J7030

== ENCOUNTER 2021-08-22 10:30 | Outpatient (RCR) | payer OTHER, SELFPAY | END 2021-08-23 23:59 | disposition home or self-care (01) | LOC: SPT 10:30 | PROVIDERS: PCP Nurse Anesthetist, Certified Registered; Referring Provider Family Medicine; Visit Provider Family Medicine | DX: R27.0 Ataxia, unspecified (principal) | CPT/HCPCS: 97161 ==

== ENCOUNTER 2021-08-24 06:00 | Outpatient (RCR) | payer OTHER, SELFPAY | END 2021-09-23 23:59 | disposition home or self-care (01) | LOC: SPT 06:00 | PROVIDERS: PCP Nurse Anesthetist, Certified Registered; Referring Provider Family Medicine; Visit Provider Family Medicine | DX: R27.0 Ataxia, unspecified (principal) | CPT/HCPCS: 97110; 97112 ==

== ENCOUNTER 2021-09-24 06:00 | Outpatient (RCR) | payer OTHER, SELFPAY | END 2021-10-17 23:00 | disposition home or self-care (01) | LOC: SPT 06:00 | PROVIDERS: PCP Nurse Anesthetist, Certified Registered; Referring Provider Family Medicine; Visit Provider Family Medicine | DX: R27.0 Ataxia, unspecified (principal) | CPT/HCPCS: 97110; 97112 ==

== ENCOUNTER 2022-03-27 14:44 | Emergency (ER) | payer OTHER, SELFPAY ==
[2022-03-27 14:50] VITALS: BMI 30.8
--- NOTE | 2022-03-27 15:13 | CTR_ITS ---
PROCEDURE INFORMATION: Exam: CT Head Without Contrast Exam date and time: 03/27/2022 4:56 PM Age: 71 years old Clinical indication: Visual disturbance and weakness, extremity; Left; Prior surgery; Surgery date: 6+ months; Surgery type: Sinuses; Additional info: Headache vision changes TECHNIQUE: Imaging protocol: Computed tomography of the head without contrast. Radiation optimization: All CT scans at this facility use at least one of these dose optimization techniques: automated exposure control; mA and/or kV adjustment per patient size (includes targeted exams where dose is matched to clinical indication); or iterative reconstruction. COMPARISON: CT head wo con* [id number] 03/23/2021 11:03 AM RADIATION DOSE METRICS: Total DLP (mGy-cm): 987.88 FINDINGS: Brain: No hemorrhage. No edema. Mild diffuse cerebral atrophy and sequela of chronic small vessel ischemic disease. No mass effect. Cerebral ventricles: No ventriculomegaly. Paranasal sinuses: Visualized sinuses are unremarkable. No fluid levels. Mastoid air cells: Visualized mastoid air cells are well aerated. Bones/joints: Unremarkable. No acute fracture. Soft tissues: Unremarkable. CT/CT head wo con* [id number] IMPRESSION: No acute intracranial abnormality.
[2022-03-27 15:22] LABS: Basophils # 0.1 10^3/uL (0.0-0.1); Basophils % 0.9 %; Eosinophils # 0.1 10^3/uL (0.0-0.8); Eosinophils % 1.1 %; Hematocrit 38.8 % (42.0-52.0); Hemoglobin 13.4 g/dL (11.7-16.6); Lymphocytes # 1.1 10^3/uL (0.8-4.8); Lymphocytes % 13.1 %; Mean Corpuscular HGB Conc 34.5 g/dL (30.0-36.0); Mean Corpuscular Hemoglobin 30.8 pg (28.0-34.0); Mean Corpuscular Volume 89.2 fl (80-94); Mean Platelet Volume 10.6 fL (7.4-10.4); Monocytes # 0.6 10^3/uL (0.2-0.9); Monocytes % 7.5 %; Neutrophils # 6.26 10^3/uL (1.8-7.7); Neutrophils % 76.9 %; Nucleated Red Blood Cells % 0 %; Platelet Count 217 10^3/cmm (130-400); Red Blood Count 4.35 10^6/uL (4.1-5.3); Red Cell Distribution Width 13.1 % (12.1-15.1); White Blood Count 8.1 10^3/uL (4.0-10.0)
--- NOTE | 2022-03-27 15:26 | ED_ITS ---
HPI - Dizziness General: Chief Complaint: Dizziness Stated Complaint: GENERALIZED WEAKNESS Time Seen by Provider: 03/27/22 15:12 Source: patient Mode of arrival: EMS History of Present Illness: HPI Narrative: 71-year-old male patient states he had a headache earlier he went to bed for time and he woke up he had difficult time with balance and felt unsteady on his feet said he kept running into dalal and doors the time he arrived. Pretty much resolved. He denies any fever sweats chills no chest pain. No vomiting or diarrhea no shortness of breath. Did not have any vomiting with the episode. MD elicited complaint: dizziness and lightheadedness Onset (ago): hour(s) Timing: sudden onset Description: lightheadedness, off-balance and difficulty walking History of similar symptoms: No Exacerbating factors: movement/ambulation Relieving factors: nothing Associated symptoms: Denies change in hearing, chest pain, chills, diaphoresis, ear discharge, ear pressure, fevers/chills, headache(s), malaise, nausea, nasal congestion, palpitations, rash, short of breath, syncope, tinnitus, vomiting or weakness Associated neuro symptoms: Deny confusion, difficulty speaking, dysphagia, diplopia, extremity weakness, facial numbness, facial weakness, gait changes, numbness in extremities or visual changes Review of Systems Const: Denies: fever(s), chills, fatigue, malaise or diaphoresis ENMT: Denies: ear discharge, change in hearing, tinnitus or nasal congestion Card: Denies: chest pain, palpitations or syncope Resp: Denies: dyspnea, productive cough or non-productive cough GI: Denies: abdominal pain, nausea, vomiting, hematemesis, coffee ground emesis or dysphagia : Denies: flank pain, dysuria, urinary frequency or urinary urgency Skin/Breast: Denies: rash or pruritus Neuro: Denies: headache(s), numbness in extremities or confusion PFSH ED PFSH: Medical History Anxiety Hyperlipidemia Type 2 diabetes mellitus Surgical History History of cataract surgery History of nasal surgery Family History Other Cancer Dementia Stroke Social History Smoking and tobacco status: former smoker Alcohol intake: never Physical Exam Const: COMMON NORMALS: no acute distress GENERAL APPEARANCE: cooperative and comfortable ORIENTATION/CONSCIOUSNESS: Yes awake, Yes oriented to person, Yes oriented to place and Yes oriented to time HENMT: COMMON NORMALS: normocephalic, atraumatic and hearing grossly normal bilaterally HEAD & SCALP: normocephalic and atraumatic Neck/C-Spine: COMMON NORMALS: no JVD Resp: COMMON NORMALS: normal respiratory effort, No retractions, No use of accessory muscles and clear to auscultation bilaterally AUSCULTATION: clear to auscultation bilaterally Cardio: COMMON NORMALS: no JVD, regular rate, regular rhythm and No murmurs present (Cardio) RATE: regular rate RHYTHM: regular rhythm GI: COMMON NORMALS: Soft to palpation and No hepatosplenomegaly present AUSCULTATION: Yes normoactive bowel sounds PALPATION: Yes Soft to palpation, No Tenderness to palpation present (GI), No Guarding due to palpation present (GI) and Yes No hepatosplenomegaly present Extremity: COMMON NORMALS: normal to inspection, capillary refill normal, no clubbing, cyanosis or edema, no calf tenderness and no pedal edema Neuro: SENSORIUM/ORIENTATION: Yes oriented to person, Yes oriented to place and Yes oriented to time Skin: COMMON NORMALS: no rashes or lesions noted GENERAL SKIN EXAM: no rashes or lesions noted Course Vital Signs: Vital signs: Vital Signs Pulse Rate 102 H 03/27/22 17:41 Respiratory Rate 16 03/27/22 17:41 Blood Pressure 97/61 03/27/22 17:41 Pulse Oximetry 92 03/27/22 17:41 MDM - Dizziness Medical Decision Making Labs and imaging reviewed all symptoms are resolved. Patient is already on aspirin and high-dose statin we will add Plavix. He is not having any symptoms at this point think we can safely discharge him home we will set him up for an outpatient MRI. Medical Records I reviewed the patient's medical records. Lab Data I reviewed the patient's lab results. : 03/27/22 15:05 03/27/22 15:[address] 03/27/22 15:13 IMPRESSION: No acute intracranial abnormality. Head/Neck CTA 03/27/22 15:35 IMPRESSION: No large vessel stenosis or occlusion. IMPRESSION: No stenosis or occlusion. REFERENCES: NASCET CRITERIA. The degree of internal carotid artery stenosis is based on NASCET criteria. Normal is no stenosis. Mild is less than 50% stenosis. Moderate is 50-69% stenosis. Severe is 70% to 99% stenosis. Total occlusion is no detectable patent lumen. Laboratory Results WBC 8.1 10^3/uL (4.0-10.0) 03/27/22 15:05 RBC 4.35 10^6/uL (4.1-5.3) 03/27/22 15:05 Hgb 13.4 g/dL (11.7-16.6) 03/27/22 15:05 Hct 38.8 % (42.0-52.0) L 03/27/22 15:05 MCV 89.2 fl (80-94) 03/27/22 15:05 MCH 30.8 pg (28.0-34.0) 03/27/22 15:05 MCHC 34.5 g/dL (30.0-36.0) 03/27/22 15:05 RDW 13.1 % (12.1-15.1) 03/27/22 15:05 Plt Count 217 10^3/cmm (130-400) 03/27/22 15:05 MPV 10.6 fL (7.4-10.4) H 03/27/22 15:05 Neut % (Auto) 76.9 % 03/27/22 15:05 Lymph % (Auto) 13.1 % 03/27/22 15:05 [place] % (Auto) 7.5 % 03/27/22 15:05 Eos % (Auto) 1.1 % 03/27/22 15:05 Baso % (Auto) 0.9 % 03/27/22 15:05 Neut # (Auto) 6.26 10^3/uL (1.8-7.7) 03/27/22 15:05 Lymph # (Auto) 1.1 10^3/uL (0.8-4.8) 03/27/22 15:05 [place] # (Auto) 0.6 10^3/uL (0.2-0.9) 03/27/22 15:05 Eos # (Auto) 0.1 10^3/uL (0.0-0.8) 03/27/22 15:05 Baso # (Auto) 0.1 10^3/uL (0.0-0.1) 03/27/22 15:05 Nucleated RBC % (auto) 0 % 03/27/22 15:05 Nucleated RBCs # 0.0 /100WBC 03/27/22 15:05 Sodium 134 mmol/L (136-145) L 03/27/22 15:53 Potassium 3.9 mmol/L (3.5-5.1) 03/27/22 15:53 Chloride 97 mmol/L (98-107) L 03/27/22 15:53 Carbon Dioxide 22 mmol/L (22-29) 03/27/22 15:53 Anion Gap 18.9 (5-19) 03/27/22 15:53 BUN 12 mg/dL (8-23) 03/27/22 15:53 Creatinine 1.0 mg/dL (0.7-1.2) 03/27/22 15:53 GFR Calculation Not Reportable 03/27/22 15:53 Glucose 132 mg/dL (65-115) H 03/27/22 15:53 Calculated Osmolality 280 mOsm/kg (285-295) L 03/27/22 15:53 Calcium 9.0 mg/dL (8.5-10.5) 03/27/22 15:53 Total Bilirubin 0.5 mg/dL (0.15-1.2) 03/27/22 15:53 AST 17 U/L (0-40) 03/27/22 15:53 ALT 17 U/L (0-41) 03/27/22 15:53 Alkaline Phosphatase 96 IU/L (40-130) 03/27/22 15:53 Creatine Kinase 46 U/L (39-308) 03/27/22 15:53 Total Protein 6.6 g/dL (6.6-8.7) 03/27/22 15:53 Albumin 4.2 g/dL (3.5-5.2) 03/27/22 15:53 Globulin 2.4 g/dL (1.3-4.6) 03/27/22 15:53 Urine Color Yellow (Yellow) 03/27/22 15:30 Urine Appearance Clear (CLEAR) 03/27/22 15:30 Urine pH 7 (5-7) 03/27/22 15:30 Ur Specific [place] 1.005 (1.005-1.030) 03/27/22 15:30 Urine Protein Neg (Negative) 03/27/22 15:30 Urine Glucose (UA) Norm (Normal) 03/27/22 15:30 Urine Ketones Negative (Negative) 03/27/22 15:30 Urine Blood Neg (Negative) 03/27/22 15:30 Urine Nitrate Negative (Negative) 03/27/22 15:30 Urine Bilirubin Neg (Negative) 03/27/22 15:30 Urine Urobilinogen Norm mg/dL (Negative) 03/27/22 15:30 Ur Leukocyte Esterase Negative (Negative) 03/27/22 15:30 Discharge Plan Discharge Patient Disposition: Home Clinical Impression: Dizziness, Transient cerebral ischemia Condition: Stable Prescriptions: New clopidogrel 75 mg tablet 75 mg PO DAILY Qty: 30 0RF No Action metformin 500 mg Tablet 500 mg PO BID@0700,1900 0RF bupropion HCl 150 mg Tablet Sustained-Release 12 Hr 150 mg PO DAILY@0700 0RF aspirin 81 mg Tablet,Delayed Release (Dr/Ec) 81 mg PO DAILY@0700 0RF Vitamin B-12 50 mcg Tablet 50 mcg PO DAILY Qty: 0 0RF omeprazole 20 mg Capsule,Delayed Release(Dr/Ec) 20 mg PO DAILY@0700 0RF rosuvastatin 40 mg Tablet 40 mg PO DAILY@0700 0RF latanoprost (PF) 0.005 % Drops 1 drp OPHTHALMIC (EYE) BEDTIME 0RF Rx Instructions: USE IN BOTH EYES gabapentin 300 mg Capsule 600 mg PO TID Qty: 90 0RF Vitamin D3 25 mcg (1,000 unit) Capsule 25 mcg PO DAILY 0RF Discharge Orders: Discharge ED (Routine); Ordered 03/27/22 Ordered By: Milan Fletcher Discharge Diet: Usual diet Discharge Activity: Resume usual activity Activity Restrictions/Additional Instructions: Follow-up with his primary care doctor. Return if you have any further problems for Coding Level of Care Code ED Medical Affairs Manager for Elinor Fwlandry Exam Comprehensive NIH stroke score NIHSS Level Of Consciousness - 1a: 0 Level Of Consciousness Questions - 1b: Both Correct Level Of Consciousness Commands - 1c: Both Correct Best Gaze - 2: Normal Visual Nam - 3: No Visual Loss Facial Palsy - 4: Normal Motor Arm Right - 5: No Drift Motor Arm Left - 5: No Drift Motor Leg Right - 6: No Drift Motor Leg Left - 6: No Drift Limb Ataxia - 7: Absent Sensory - 8: Normal Best Language - 9: No Aphasia Dysarthia - 10: Normal Extinction And Inattention - 11: 0 Score Total Score: 0
[2022-03-27 15:33] VITALS: BP 163/91; PULSE 108; RESP 24; O2SAT 92
--- NOTE | 2022-03-27 15:35 | CTR_ITS ---
PROCEDURE INFORMATION: Exam: CTA Head With Contrast, Arteriography Exam date and time: 03/27/2022 5:01 PM Age: 71 years old Clinical indication: Weakness; Additional info: Weakness, imbalance, visual changes, patient reports prior CVA TECHNIQUE: Imaging protocol: Computed tomographic angiography of the head with contrast. Exam focused on the arteries. 3D rendering (Not supervised by radiologist): MIP and/or 3D reconstructed images were created by the technologist. Radiation optimization: All CT scans at this facility use at least one of these dose optimization techniques: automated exposure control; mA and/or kV adjustment per patient size (includes targeted exams where dose is matched to clinical indication); or iterative reconstruction. Contrast material: OMNIPAQUE 350; Contrast volume: 90 ml; Contrast route: INTRAVENOUS (IV); COMPARISON: CT head wo con* [id number] 03/27/2022 4:56 PM RADIATION DOSE METRICS: Total DLP (mGy-cm): 2143.46 FINDINGS: ANTERIOR CIRCULATION: Right internal carotid artery: Unremarkable. Intracranial segment is patent with no significant stenosis. No aneurysm. Right middle cerebral artery: Unremarkable. No occlusion or significant stenosis. No aneurysm. Right anterior cerebral artery: Unremarkable. No occlusion or significant stenosis. No aneurysm. Left internal carotid artery: Unremarkable. Intracranial segment is patent with no significant stenosis. No aneurysm. Left middle cerebral artery: Unremarkable. No occlusion or significant stenosis. No aneurysm. Left anterior cerebral artery: Unremarkable. No occlusion or significant stenosis. No aneurysm. POSTERIOR CIRCULATION: Right vertebral artery: Unremarkable. No occlusion or significant stenosis. No aneurysm. Left vertebral artery: Unremarkable. No occlusion or significant stenosis. No aneurysm. Basilar artery: Unremarkable. No occlusion or significant stenosis. No aneurysm. Right posterior cerebral artery: Unremarkable. No occlusion or significant stenosis. No aneurysm. Left posterior cerebral artery: Unremarkable. No occlusion or significant stenosis. No aneurysm. Brain: No definite mass, mass effect, or midline shift. Cerebral ventricles: No ventriculomegaly. Bones/joints: Unremarkable. No acute fracture. Soft tissues: Unremarkable. PROCEDURE INFORMATION: Exam: CTA Neck With Contrast Exam date and time: 03/27/2022 5:01 PM Age: 71 years old Clinical indication: Weakness; Additional info: Weakness, imbalance, visual changes, patient reports prior CVA TECHNIQUE: Imaging protocol: Computed tomographic angiography of the neck with contrast. 3D rendering (Not supervised by radiologist): MIP and/or 3D reconstructed images were created by the technologist. Radiation optimization: All CT scans at this facility use at least one of these dose optimization techniques: automated exposure control; mA and/or kV adjustment per patient size (includes targeted exams where dose is matched to clinical indication); or iterative reconstruction. Contrast material: OMNIPAQUE 350; Contrast volume: 90 ml; Contrast route: INTRAVENOUS (IV); COMPARISON: CT head wo con* [id number] 03/27/2022 4:56 PM RADIATION DOSE METRICS: Total DLP (mGy-cm): 2143.46 FINDINGS: Right common carotid artery: No stenosis. No dissection or occlusion. Right internal carotid artery: No stenosis of the extracranial segment. No dissection or occlusion. Right external carotid artery: No occlusion or stenosis of the origin. Left common carotid artery: No stenosis. No dissection or occlusion. Left internal carotid artery: No stenosis of the extracranial segment. No dissection or occlusion. Left external carotid artery: No occlusion or stenosis of the origin. Right vertebral artery: No stenosis. No dissection or occlusion. Left vertebral artery: No stenosis. No dissection or occlusion. Soft tissues: Normal. No significant soft tissue swelling. Bones/joints: No acute fracture. CT/CT angio headneck* [id number] IMPRESSION: No large vessel stenosis or occlusion. IMPRESSION: No stenosis or occlusion. REFERENCES: NASCET CRITERIA. The degree of internal carotid artery stenosis is based on NASCET criteria. Normal is no stenosis. Mild is less than 50% stenosis. Moderate is 50-69% stenosis. Severe is 70% to 99% stenosis. Total occlusion is no detectable patent lumen.
[2022-03-27 15:47] LABS: Add Urine Microscopic? NO; Charge for UA Resulting for Rev
[2022-03-27 15:51] LABS: Bilirubin Urine Neg (Negative); Blood Urine Neg (Negative); Glucose Urine UA Norm (Normal); Ketones Urine Negative (Negative); Leukocyte Esterase Urine Negative (Negative); Nitrate Urine Negative (Negative); Protein Urine Neg (Negative); Specific Gravity, Urine 1.005 (1.005-1.030); Urine Appearance Clear (CLEAR); Urine Color Yellow (Yellow); Urobilinogen Urine Norm (Negative); pH Urine 7 (5-7)
[2022-03-27 16:26] LABS: Alanine Aminotransferase 17 U/L (0-41); Albumin Level 4.2 g/dL (3.5-5.2); Alkaline Phosphatase 96 IU/L (40-130); Anion Gap 18.9 (5-19); Aspartate Amino Transferase 17 U/L (0-40); Blood Urea Nitrogen 12 mg/dL (8-23); Carbon Dioxide 22 mmol/L (22-29); Chloride 97 mmol/L (98-107); Globulin 2.4 g/dL (1.3-4.6); Glucose 132 mg/dL (65-115); Osmolality Calculated 280 mOsm/kg (285-295); Potassium 3.9 mmol/L (3.5-5.1); Sodium 134 mmol/L (136-145); Total Bilirubin 0.5 mg/dL (0.15-1.2); Total Protein 6.6 g/dL (6.6-8.7)
[2022-03-27 16:30] LABS: Creatine Phosphokinase 46 U/L (39-308)
[2022-03-27] MEDS: iohexol 350 mg/mL 100 mL Btl IV (17:30)
[2022-03-27 17:41] VITALS: BP 97/61; PULSE 102; RESP 16; O2SAT 92
== END 2022-03-27 18:05 | disposition home or self-care (01) ==
PROVIDERS: Emergency Provider Family Medicine
DX: G45.9 Transient cerebral ischemic attack, unspecified (principal); R42 Dizziness and giddiness; Z79.82 Long term (current) use of aspirin; E78.5 Hyperlipidemia, unspecified; E11.9 Type 2 diabetes mellitus without complications; Z87.891 Personal history of nicotine dependence
CPT/HCPCS: 70450; 70496; 70498; 80053; 81003; 82550; 85025; 99284; Q9967

== ENCOUNTER 2022-06-06 07:52 | Outpatient (CLI) | payer OTHER, SELFPAY ==
--- NOTE | 2022-06-06 | MR_ITS ---
WS: [id number] MRI LUMBAR SPINE NONCONTRAST TECHNIQUE: Sagittal T1, T2 and STIR imaging. Axial T1 and T2 imaging. CLINICAL INFORMATION: LUMBAR RADICULOPATHY COMPARISON: None. FINDINGS: Mild lumbar curve. No acute compression. Severe central canal stenosis L3-L4. Slight retrolisthesis L 2 on L3. L1-L2: Normal. L2-L3: Slight retrolisthesis. Mild annular bulging. Slight impingement on the traversing RIGHT L3 ner ve root. Mild facet arthropathy. Mild RIGHT foraminal narrowing. L3-L4: Mild disc bulging with osteophytic ridging. Severe central canal stenosis with impingement on the traversing L4 nerve roots bilaterally. Foramen are patent. Moderate facet arthropathy ligamentum flavum hypertrophy. L4-L5: Mild disc bulging with mild central canal stenosis. Moderate facet arthropathy ligamentum flav um hypertrophy. Impingement traversing L5 nerve roots bilaterally. Mild RIGHT and no significant LEFT foraminal narrowing. L5-S1: Mild disc bulging with osteophytic ridging. Slight retrolisthesis L5 on S1. Eccentric RIGHT di sc osteophyte complex impinges the exiting RIGHT L5 nerve root with moderate to severe RIGHT foramina l narrowing. LEFT foramen is patent. Moderate facet arthropathy. L5 is partially sacralized Visualized pelvic bony structures: Normal. Paravertebral soft tissues: RIGHT peripelvic renal cyst. MR/MR lumbar spine wo con* [id number] IMPRESSION: 1. Mild lumbar curve. No acute compression. 2. Severe central canal stenosis L3-L4 due to mild disc bulging in combination with facet arthropathy ligamentum flavum hypertrophy. Impingement traversing L 4 nerve roots bilaterally. 3. Mild central canal stenosis L4-L5 with impingement traversing L5 nerve root s bilaterally in combination with facet arthropathy ligamentum flavum hypertrop hy. 4. Moderate to severe RIGHT L5-S1 foraminal narrowing impinges the exiting RIG HT L5 nerve root laterally. 5. Mild RIGHT L2-L3 foraminal narrowing with narrowing of the RIGHT subarticul ar recess and encroachment on traversing RIGHT L3 nerve root. 6. Moderate facet arthropathy L3-L5.
--- NOTE | 2022-06-06 | MR_ITS ---
WS: [id number] MRI HEAD WITHOUT CONTRAST TECHNIQUE: Sagittal T1, T2 axial, T2 axial FLAIR, axial and coronal T1 images, axial susceptibility w eighted imaging, axial diffusion weighted images, and coronal T2 images were obtained. CLINICAL INFORMATION: TIA COMPARISON: CT March 27, 2022 FINDINGS: No evidence of restricted diffusion to suggest acute ischemia. Ventricular system and basal cisterns are patent. Mild small vessel changes. Mild parenchymal volume loss. Normal posterior fossa. Normal v ascular flow voids at the skull base. No extra-axial fluid collections. No evidence of mass or mass e ffect. Paranasal sinuses and mastoid air cells are well aerated. No hemosiderin on the susceptibly weighted images. Normal optic chiasm and pituitary infundibulum. Mi ld to moderate symmetric atrophy temporal lobes and hippocampal formations. Normal cavernous sinuses and Meckel's cave. MR/MR head wo con* [id number] IMPRESSION: 1. No evidence of restricted diffusion to suggest acute ischemia. 2. Mild small vessel changes with mild parenchymal volume loss. Small vessel c hanges in the rubio. 3. No hemosiderin on susceptibly weighted images. 4. Mild symmetric atrophy temporal lobes and hippocampal formations. 5. No other suspicious findings.
== END 2022-06-06 07:53 | disposition home or self-care (01) ==
PROVIDERS: Visit Provider Family Medicine
DX: Z01.89 Encounter for other specified special examinations (principal); M54.16 Radiculopathy, lumbar region; G45.9 Transient cerebral ischemic attack, unspecified; M47.816 Spondylosis without myelopathy or radiculopathy, lumbar region; M48.061 Spinal stenosis, lumbar region without neurogenic claudication; G31.9 Degenerative disease of nervous system, unspecified
CPT/HCPCS: 70551; 72148

== ENCOUNTER 2022-06-06 12:13 | Observation (INO) | payer OTHER, SELFPAY ==
[2022-06-06] VITALS (10 sets, daily range): BP systolic 83–135; BP diastolic 52–79; PULSE 83–101; RESP 14–18; TEMP 36.6; O2SAT 93–96; BMI 30.7
--- NOTE | 2022-06-06 12:20 | XRR_ITS ---
PROCEDURE INFORMATION: Exam: XR Chest Exam date and time: 06/06/2022 12:53 PM Age: 71 years old Clinical indication: Pain; Angina pectoris; Patient HX: PT states that he just had a head mri done earlier today and has felt dizziness and blurred vision since; Additional info: Chest pain TECHNIQUE: Imaging protocol: Radiologic exam of the chest. Views: 1 view. COMPARISON: CR XR chest 1V portable [id number] 03/23/2021 9:33 AM FINDINGS: Lungs: Stable left lower lobe or lingular nodule measuring 9 mm possibly a calcified granuloma. The lungs are otherwise clear. Pleural spaces: Unremarkable. No pleural effusion. No pneumothorax. Heart/Mediastinum: Unremarkable. No cardiomegaly. Bones/joints: Unremarkable. XR/XR chest 1V portable [id number] IMPRESSION: Stable suspected left base granuloma.
[2022-06-06 12:43] LABS: Glucose Point of Care 163 mg/dL (70-110)
[2022-06-06 12:53] LABS: Basophils # 0.1 10^3/uL (0.0-0.1); Eosinophils # 0.1 10^3/uL (0.0-0.8); Eosinophils % 1.4 %; Hematocrit 41.7 % (42.0-52.0); Hemoglobin 14.3 g/dL (11.7-16.6); Lymphocytes # 2.3 10^3/uL (0.8-4.8); Lymphocytes % 29.1 %; Mean Corpuscular HGB Conc 34.3 g/dL (30.0-36.0); Mean Corpuscular Hemoglobin 30.8 pg (28.0-34.0); Mean Corpuscular Volume 89.7 fl (80-94); Mean Platelet Volume 10.5 fL (7.4-10.4); Monocytes # 0.8 10^3/uL (0.2-0.9); Monocytes % 9.8 %; Neutrophils % 58.4 %; Nucleated Red Blood Cells % 0 %; Platelet Count 311 10^3/cmm (130-400); Red Blood Count 4.65 10^6/uL (4.1-5.3); Red Cell Distribution Width 13.4 % (12.1-15.1); White Blood Count 7.9 10^3/uL (4.0-10.0)
[2022-06-06] MEDS: sodium chloride 0.9% 1,000 ML 999 ML IV ×2 (12:54→14:24)
[2022-06-06 13:09] LABS: Troponin(5th) Baseline 19 ng/L (0-15)
[2022-06-06 13:11] LABS: Alanine Aminotransferase 19 U/L (0-41); Albumin Level 4.2 g/dL (3.5-5.2); Alkaline Phosphatase 92 U/L (40-130); Anion Gap 20.7 (5-19); Aspartate Amino Transferase 14 U/L (0-40); Blood Urea Nitrogen 20 mg/dL (8-23); Calcium 9.4 mg/dL (8.5-10.5); Carbon Dioxide 21 mmol/L (22-29); Chloride 99 mmol/L (98-107); Globulin 2.8 g/dL (1.3-4.6); Glucose 161 mg/dL (65-115); Lipase 32 U/L (13-60); Osmolality Calculated 290 mOsm/kg (285-295); Potassium 3.7 mmol/L (3.5-5.1); Sodium 137 mmol/L (136-145); Total Bilirubin 0.4 mg/dL (0.15-1.2)
--- NOTE | 2022-06-06 14:30 | PC.PHAR ---
pt states he takes care of his own medications-pt states he is unsure if he is taking hctz 25mg daily and lisinopril 20mg daily both medications are active meds on [facility]-pt states he takes gabapentin 300mg takes 900mg bid [facility] med list has 900mg tid-pt states he has latanoprost eye drops he uses at bedtime medication not pts [facility] med list-
--- NOTE | 2022-06-06 15:14 | ECG_ITS ---
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 Measurements Intervals [place] Rate: 87 P: 63 RI: 186 QRS: -15 QRSD: 92 T: 16 QT: 374 QTc: 450 Interpretive Statements SINUS RHYTHM LOW QRS VOLTAGE IN PRECORDIAL LEADS [QRS DEFLECTION < 1.0 mV IN CHEST LEADS] INFERIOR MYOCARDIAL INFARCTION , PROBABLY OLD [40+ ms Q WAVE AND/OR ST/T ABNORMALITY IN II/aVF] Compared to ECG 06/06/2022 12:32:23 Low QRS voltage now present Myocardial infarct finding still present Electronically Signed On 06-06-2022 18:07:25 CDT by Rena Sanchez M.D. [id number]
[2022-06-06 15:48] LABS: Troponin 5 2HR 17.08 ng/L (0-15)
[2022-06-06 16:02] LABS: Troponin 5 2HR Delta -1.92 ABS# (0-10)
--- NOTE | 2022-06-06 16:03 | ED_ITS ---
HPI - General Adult General: Chief complaint: Dizziness Stated complaint: Dizziness and blur vision Time Seen by Provider: 06/06/22 12:40 History of Present Illness: Patient is a 71-year-old male with a history of chronic back pain, diabetes, hyperlipidemia who presents the emergency room with complaints of lightheadedness and near syncope. Patient tells me that earlier this morning, he underwent MRI brain evaluation for TIA and MRI of the lumbar spine for evaluation of chronic back pain. Shortly after the MRIs are done and patient ate lunch, he patient was walking in a parking lot when he felt very lightheaded and almost passed out. Patient did not fall or lose consciousness. Patient did not have any injuries or trauma. Patient has no associated chest pain, shortness or palpitation or lightheadedness prior to the episode of passing out. Patient reports decreased water intake in the last few days. Patient denies any focal weakness in the arms or legs, slurring of speech, facial facial droop, speech difficulty or language finding difficulty. Patient has had in the past with episodes of near syncope. Patient denies any cardiac history. Denies any repeat episode of lightheadedness. Onset:30 minutes ago Duration:once Location:outside Severity:moderate Associated symptoms: Deny chest pain, dyspnea, nausea, rash, palpitations or vomiting Review of Systems Const: Denies: fever(s) or chills Eyes: Denies: change in vision ENMT: Denies: mouth pain Card: Denies: chest pain or palpitations Resp: Denies: dyspnea or non-productive cough GI: Denies: abdominal pain, nausea, vomiting or diarrhea : Denies: dysuria Musc: Denies: extremity pain Skin/Breast: Denies: rash or new lesions Neuro: Reports: other (+near syncope); Denies: weakness in extremities Psych: Reports: other (Normal mood) Marck/Lymph: Denies: easy bruising PFSH ED PFSH: Medical History Anxiety Chronic back pain Hyperlipidemia Type 2 diabetes mellitus Surgical History History of cataract surgery History of nasal surgery Family History Other Cancer Dementia Stroke Social History Smoking and tobacco status: former smoker Alcohol intake: never Lives independently: Yes Household members: none Physical Exam Const: COMMON NORMALS: alert HENMT: COMMON NORMALS: atraumatic HEAD & SCALP: atraumatic MOUTH: moist mucous membranes not abnormal Eye: COMMON NORMALS: EOMs intact bilaterally and conjunctivae normal CONJUNCTIVA: Yes conjunctivae normal Neck/C-Spine: COMMON NORMALS: full ROM and supple Resp: COMMON NORMALS: normal respiratory effort and clear to auscultation bilaterally AUSCULTATION: clear to auscultation bilaterally Cardio: COMMON NORMALS: regular rate RATE: regular rate GI: COMMON NORMALS: Soft to palpation and non-tender PALPATION: Yes Soft to palpation OTHER: No focal TTP. NO guarding rebound, guarding, rigidity. No CVA tenderness to percussion. Neg Yeager/Neg McBurney's point tenderness, no suprabupic tenderness to palpation. Extremity: COMMON NORMALS: full ROM Neuro: SENSORIUM/ORIENTATION: Yes alert MOTOR EXAM: No Abnormal motor str ength present and Other motor observations present (no focal motor deficits) OTHER: Mental status? Awake, alert, and oriented to self, year, month, location, and situation.? Following simple axial and appendicular commands.? Has appropriate fund of knowledge, comprehension, and insight.? Able to recall and understands pertinent aspects of medical history and current treatment status.? ? Language? Speech is fluent without word-finding difficulties.? Intact naming, expression, medical receptionist assistant, and repetition.? ? Cranial nerves? 2,3,4,6: PERRL, EOMI with no nystagmus. 5: Intact sensation to light touch, symmetric? 7: Smile symmetrical, no facial droop.? 8: Hearing grossly intact.? 9,10: Normal palate movement.? 11: Normal strength in trapezius bilaterally 12: Tongue protrudes midline.? ? Motor examination? Normal bulk & tone. Strength as follows (R/L): Delts (5/5), Biceps (5/5), Triceps (5/5), Wrist ext (5/5), hip flexors (5/5), plantarflexors (5/5), dorsiflexors (5/5). Sensation? Light Touch: Grossly intact and equal in upper and lower extremities bi laterally? Romberg: Negative.? Distal joint position sense intact ? Coordination? Gwusdd-qu-crrp-finger movements intact without dysmetria or past-pointing.? Rapid fingertaps: preserved amplitude without decriment.? No tremor, myoclonus or truncal ataxia.? ? Gait/stance? Steady, normal narrow base gait with appropriate arm swing and turning.? Tandem gait without hesitation or loss of balance. Psych: COMMON NORMALS: speech normal SPEECH: Yes normal speech MOOD & AFFECT: Yes euthymic mood Course Vital Signs: Vital signs: Vital Signs Temperature 98.0 F 06/07/22 17:39 Pulse Rate 85 06/07/22 17:39 Respiratory Rate 16 06/07/22 17:39 Blood Pressure 125/66 06/07/22 17:39 Pulse Oximetry 96 06/07/22 17:39 Oxygen Delivery Me thod 06/07/22 15:49 MDM - General Adult Medical Decision Making Patient is a 71-year-old male with a history of chronic back pain, diabetes, hyperlipidemia who presents the emergency room with complaints of lightheadedness and near syncope. On arrival, patient was noted to have a blood pressure 80/40. Patient's blood pressure improved on reassessment to 90/50 and then continued to be normotensive after IVF. Patient is neurologically intact. Patient has no other focal complaints at this time. Troponin x 2 with delta less than 5. Patient is noted have a creatinine of 1.6 and improved to 1.5 after IVF. However, patient is noted to have a widening anion gap from 20 to26. Patient's serum ketones negative. Do not suspect patient is in DKA currently. However it is unclear why patient has an anion gap acidosis. Patient is noted to have a lactate of 3.2 today after IVF. Patient will be mid hospital for observation and reassessment of lactate elevation. At the present time, do not suspect acute sepsis as patient is afebrile, with normal white count and no othe r signs of infection. Disposition: admission Lab Data : 06/07/22 02:01 06/07/22 02:01 Radiology Impressions Chest X-Ray 06/06/22 12:20 IMPRESSION: Stable suspected left base granuloma. Laboratory Results WBC 7.9 10^3/uL (4.0-10.0) 06/06/22 12:40 RBC 4.65 10^6/uL (4.1-5.3) 06/06/22 12:40 Hgb 14.3 g/dL (11.7-16.6) 06/06/22 12:40 Hct 41.7 % (42.0-52.0) L 06/06/22 12:40 MCV 89.7 fl (80-94) 06/06/22 12:40 MCH 30.8 pg (28.0-34.0) 06/06/22 12:40 MCHC 34.3 g/dL (30.0-36.0) 06/06/22 12:40 RDW 13.4 % (12.1-15.1) 06/06/22 12:40 Plt Count 311 10^3/cmm (130-400) 06/06/22 12:40 MPV 10.5 fL (7.4-10.4) H 06/06/22 12:40 Neut % (Auto) 58.4 % 06/06/22 12:40 Lymph % (Auto) 29.1 % 06/06/22 12:40 [place] % (Auto) 9.8 % 06/06/22 12:40 Eos % (Auto) 1.4 % 06/06/22 12:40 Baso % (Auto) 1.0 % 06/06/22 12:40 Neut # (Auto) 4.60 10^3/uL (1.8-7.7) 06/06/22 12:40 Lymph # (Auto) 2.3 10^3/uL (0.8-4.8) 06/06/22 12:40 [place] # (Auto) 0.8 10^3/uL (0.2-0.9) 06/06/22 12:40 Eos # (Auto) 0.1 10^3/uL (0.0-0.8) 06/06/22 12:40 Baso # (Auto) 0.1 10^3/uL (0.0-0.1) 06/06/22 12:40 Nucleated RBC % (auto) 0 % 06/06/22 12:40 Nucleated RBCs # 0.0 /100WBC 06/06/22 12:40 Sodium 139 mmol/L (136-145) 06/06/22 14:54 Potassium 4.1 mmol/L (3.5-5.1) 06/06/22 14:54 Chloride 103 mmol/L (98-107) 06/06/22 14:54 Carbon Dioxide 13 mmol/L (22-29) L 06/06/22 14:54 Anion Gap 27.1 (5-19) H 06/06/22 14:54 BUN 20 mg/dL (8-23) 06/06/22 14:54 Creatinine 1.5 mg/dL (0.7-1.2) H 06/06/22 14:54 GFR Calculation Not Reportable 06/06/22 14:54 Glucose 153 mg/dL (65-115) H 06/06/22 14:54 POC Glucose 163 mg/dL (70-110) H 06/06/22 12:41 Calculated Osmolality 294 mOsm/kg (285-295) 06/06/22 14:54 Lactate 3.2 mmol/L (0.5-2.2) H 06/06/22 17:23 Calcium 8.8 mg/dL (8.5-10.5) 06/06/22 14:54 Total Bilirubin 0.4 mg/dL (0.15-1.2) 06/06/22 12:40 AST 14 U/L (0-40) 06/06/22 12:40 ALT 19 U/L (0-41) 06/06/22 12:40 Alkaline Phosphatase 92 U/L (40-130) 06/06/22 12:40 Creatine Kinase 47 U/L (39-308) 06/06/22 12:40 Troponin T Baseline 19 ng/L (0-15) H 06/06/22 12:40 Troponin T 120 Minute 17.08 ng/L (0-15) H 06/06/22 14:54 Delta Troponin T -1.92 ABS# (0-10) L 06/06/22 14:54 Troponin T Hi Sens 6Hr 11.02 ng/L (0-15) 06/06/22 18:54 Troponin T Hi Sens 6Hr Delta -7.98 ng/L (0-12) L 06/06/22 18:54 Total Protein 7.0 g/dL (6.6-8.7) 06/06/22 12:40 Albumin 4.2 g/dL (3.5-5.2) 06/06/22 12:40 Globulin 2.8 g/dL (1.3-4.6) 06/06/22 12:40 Lipase 32 U/L (13-60) 06/06/22 12:40 Urine Color Yellow (Yellow) 06/06/22 17:45 Urine Appearance Clear (CLEAR) 06/06/22 17:45 Urine pH 5 (5-7) 06/06/22 17:45 Ur Specific [place] 1.015 (1.005-1.030) 06/06/22 17:45 Urine Protein Neg (Negative) 06/06/22 17:45 Urine Glucose (UA) Trace (Normal) H 06/06/22 17:45 Urine Ketones Negative (Negative) 06/06/22 17:45 Urine Blood Neg (Negative) 06/06/22 17:45 Urine Nitrate Negative (Negative) 06/06/22 17:45 Urine Bilirubin Neg (Negative) 06/06/22 17:45 Urine Urobilinogen Neg mg/dL (Negative) 06/06/22 17:45 Ur Leukocyte Esterase Negative (Negative) 06/06/22 17:45 Serum Ketones Negative (Negative) 06/06/22 12:40 Imaging Data Other Imaging: Radiologist's impression: [address] [address] XRay Report Signed Patient: Ramón Armando II Unit #: [id number] : 1950 Age/Sex: 71 / M ADM Date: 06/06/22 Loc: ER Room/Bed: Attending Dr: Ordering Provider/Ordering MD: Lucio Mcduffie MD Date of Service: 06/06/22 Procedure(s): XR chest 1V portable [id number] Accession Number(s): [id number] Report Number: [id number] PROCEDURE INFORMATION: Exam: XR Chest Exam date and time: 06/06/2022 12:53 PM Age: 71 years old Clinical indication: Pain; Angina pectoris; Patient HX: PT states that he just had a head mri done earlier today and has felt dizziness and blurred vision since; Additional info: Chest pain TECHNIQUE: Imaging protocol: Radiologic exam of the chest. Views: 1 view. COMPARISON: CR XR chest 1V portable [id number] 03/23/2021 9:33 AM FINDINGS: Lungs: Stable left lower lobe or lingular nodule measuring 9 mm possibly a calcified granuloma. The lungs are otherwise clear. Pleural spaces: Unremarkable. No pleural effusion. No pneumothorax. Heart/Mediastinum: Unremarkable. No cardiomegaly. Bones/joints: Unremarkable. XR/XR chest 1V portable [id number] IMPRESSION: Stable suspected left base granuloma. ? Dictated By: Aden Joiner MD Signed By: Aden Joiner MD Signed Date/Time: 06/06/22 1332 DD/ 1253 Discharge Plan Discharge Patient Disposition: Admitted As Inpatient Admit Provider: Lucien Phillips Clinical Impression: Light headedness, High anion gap metabolic acidosis Condition: Stable Discharge Diet: Cardiac and Diabetic Discharge Activity: Increase activity as tolerated Coding Level of Care Code ED Percussion Teacher for Chg Fwd Exam Comprehensive
[2022-06-06 17:00] LABS: Blood Urea Nitrogen 20 mg/dL (8-23); Calcium 8.8 mg/dL (8.5-10.5); Carbon Dioxide 13 mmol/L (22-29); Chloride 103 mmol/L (98-107); Glucose 153 mg/dL (65-115); Osmolality Calculated 294 mOsm/kg (285-295); Sodium 139 mmol/L (136-145)
[2022-06-06 17:01] LABS: Anion Gap 27.1 (5-19); Potassium 4.1 mmol/L (3.5-5.1)
[2022-06-06 17:28] LABS: Ketone (Acetest) Serum Negative (Negative)
[2022-06-06 17:49] LABS: Lactate (Lactic Acid level) 3.2 mmol/L (0.5-2.2)
[2022-06-06 18:06] LABS: Add Urine Microscopic? NO; Charge for UA Resulting for Rev
--- NOTE | 2022-06-06 18:21 | ECG_ITS ---
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 Measurements Intervals [place] Rate: 93 P: 59 MS: 168 QRS: -10 QRSD: 81 T: 5 QT: 329 QTc: 409 Interpretive Statements SINUS RHYTHM INFERIOR MYOCARDIAL INFARCTION , PROBABLY OLD [40+ ms Q WAVE AND/OR ST/T ABNORMALITY IN II/aVF] No previous ECG available for comparison Electronically Signed On 06-06-2022 18:08:50 CDT by Rena Sanchez M.D. [id number]
[2022-06-06 18:27] LABS: Blood Urine Neg (Negative); Glucose Urine UA Trace (Normal); Ketones Urine Negative (Negative); Protein Urine Neg (Negative); Specific Gravity, Urine 1.015 (1.005-1.030); Urine Appearance Clear (CLEAR); Urine Color Yellow (Yellow); pH Urine 5 (5-7)
[2022-06-06 18:28] LABS: Bilirubin Urine Neg (Negative); Leukocyte Esterase Urine Negative (Negative); Nitrate Urine Negative (Negative); Urobilinogen Urine Neg (Negative)
[2022-06-06 18:34] LABS: Creatine Phosphokinase 47 U/L (39-308)
--- NOTE | 2022-06-06 19:03 | P.HP_ITS ---
Providers/Chief Complaint Chief Complaint: Dizziness and blur vision History of Present Illness Pleasant 71-year-old gentleman with history of recurrent episodes of lightheadedness, accompanied by kaleidoscope vision, not preceded by any prodromal symptoms, he usually lies down on the floor for a while and they go away, states that today he had an episode while sitting in his truck which was much worse than usual. He had earlier completed MRI of his brain and spine after he feels he had several TIAs in January and March for which he did not seek medical attention at that time because he is so used to getting up in the morning and when walking around getting dizzy, stumbling around, that he feels did not noticed them. He tells me that he had no issues during the imaging studies, subsequently had some lunch at a restaurant, left, made his phone calls, and only after getting in and sitting in his truck noticed he started feeling unwell. Denies any chest pain or pressure. Has not had any shortness of breath or cough, although states can get dyspneic with exertion. Denies any lower extremity edema, no orthopnea. States that his blood pressure sometimes gets low. He measures his blood pressures twice daily, and states sometimes noticed they will be as low as in the 60s. He states he still takes all his medications regardless of what his blood pressure is. He states otherwise his appetite been not the best as food has not been tasting well, however, states he has not been eating less than usual. He does state that he may have been dehydrated recently. On asking if he has diarrhea, states yes, all the time . Rarely has a solid stool maybe once a week. Recurrent diarrhea is been going on for years. States that sometimes it is dark, he knows because he watches out for blood. He had a colonoscopy 3-4 years ago. Has had an upper endoscopy but it has been a much longer time than that. Occasionally takes ibuprofen, states had to take some on Sunday due to headache which it resolved. States that he when he goes to the doctor usually everything is fine, so he has not told his doctor about any of these issues. In ER initially blood pressure low, responded well to IV fluid boluses. He is noted to have acute kidney injury, creatinine 1.5. Also noted to have worsening anion gap metabolic acidosis, with lactic acidosis. Observation was requested. With regards to CODE STATUS, he states would want attempted resuscitation in case of cardiopulmonary arrest, but would not want to be on protracted life support if you are not improving. I would not want to be a vegetable . Review of Systems Const: Denies: fever(s), chills, body aches or malaise Eyes: Denies: change in vision, eye discomfort or eye redness ENMT: Denies: throat pain, oral sores or ear or mastoid pain Card: Reports: lightheadedness, pre-syncope and dyspnea on exertion; Denies: chest pain, palpitations, irregular heart rhythm, edema, swelling of feet/ankles or orthopnea Resp: Denies: dyspnea, productive cough, change in phlegm color or hemoptysis GI: Reports: other (Intermittent dark stools); Denies: abdominal pain, nausea, vomiting, diarrhea, constipation or hematochezia : Denies: flank pain, difficulty urinating, urinary frequency or hematuria Musc: Denies: back pain, joint swelling or joint redness Skin/Breast: Denies: rash or new lesions Neuro: Denies: headache(s), numbness in extremities, weakness in extremities, dizziness, confusion or seizure-like activity Endo: Denies: polyuria or polydipsia Marck/Lymph: Denies: easy bleeding or tender lymph nodes All/Imm: Denies: urticaria or tongue swelling Medications/Allergies Home Medications Medication Instructions Recorded Confirmed Last Taken Type aspirin 81 mg tablet,delayed 81 mg PO DAILY@0700 03/23/21 06/06/22 06/06/22 History release bupropion HCl 150 mg tablet,12 hr 150 mg PO BID 03/23/21 06/06/22 06/06/22 History sustained-release latanoprost (PF) 0.005 % eye drops 1 drp ophthalmic (eye) BEDTIME 03/23/21 06/06/22 03/26/22 History omeprazole 20 mg capsule,delayed 20 mg PO DAILY@0700 03/23/21 06/06/22 06/06/22 History release rosuvastatin 40 mg tablet 40 mg PO DAILY 03/23/21 06/06/22 06/06/22 History cholecalciferol (vitamin D3) 25 25 mcg PO DAILY 03/27/22 06/06/22 03/27/22 History mcg (1,000 unit) capsule (Vitamin D3) clopidogrel 75 mg tablet 75 mg PO DAILY #30 tabs 03/27/22 06/06/22 06/06/22 Rx ascorbic acid (vitamin C) 500 mg 500 mg PO DAILY 06/06/22 06/06/22 Unknown History tablet (Vitamin C) cyanocobalamin (vitamin B-12) 1,000 mcg PO DAILY 06/06/22 06/06/22 Unknown History 1,000 mcg tablet (Vitamin B-12) gabapentin 300 mg capsule 900 mg PO BID 06/06/22 06/06/22 06/06/22 History glimepiride 4 mg tablet 2 mg PO QAM 06/06/22 06/06/22 06/06/22 History hydrochlorothiazide 25 mg tablet 25 mg PO DAILY 06/06/22 06/06/22 Unknown History lisinopril 20 mg tablet 20 mg PO DAILY 06/06/22 06/06/22 Unknown History metformin 1,000 mg tablet 1,000 mg PO BID 06/06/22 06/06/22 06/06/22 History Allergies Allergy/AdvReac Type Severity Reaction Status Date / Time Penicillins Allergy ADR-Agitate Verified 03/27/22 16:09 d PFSH Acute PFSH: Medical History Anxiety Chronic back pain Hyperlipidemia Type 2 diabetes mellitus Surgical History History of cataract surgery History of nasal surgery Family History Other Cancer Dementia Stroke Social History Smoking and tobacco status: former smoker Alcohol intake: never Lives independently: Yes Household members: none Vitals/I&O/Wt Last Vital Signs Temp 97.9 F 06/06/22 12:23 Pulse 90 06/06/22 17:51 Resp 14 06/06/22 17:51 BP 114/72 06/06/22 17:51 Pulse Ox 96 06/06/22 17:51 O2 Del Method 06/06/22 17:51 06/06/22 06/06/22 06/06/22 06:59 14:59 22:59 Intake Total 1000 / 1000 999 / 1999 Balance 1000 / 1000 999 / 1999 Weight last 48 hrs Weight 97.069 kg Physical Exam Const: COMMON NORMALS: patient oriented x3 and alert GENERAL APPEARANCE: cooperative ORIENTATION/CONSCIOUSNESS: Yes awake HENMT: COMMON NORMALS: oropharynx normal Neck/C-Spine: COMMON NORMALS: no JVD Resp: COMMON NORMALS: normal respiratory effort and clear to auscultation bilaterally AUSCULTATION: clear to auscultation bilaterally Cardio: COMMON NORMALS: no JVD, regular rhythm, S1 normal heart sound present, S2 normal heart sound present and No murmurs present (Cardio) RHYTHM: regular rhythm HEART SOUNDS: S1 normal heart sound present and S2 normal heart sound present GI: COMMON NORMALS: Normal to inspection, nondistended, normoactive bowel sounds present, Soft to palpation and non-tender PALPATION: Yes Soft to palpation Extremity: COMMON NORMALS: no joint enlargement and no pedal edema Neuro: COMMON NORMALS: patient oriented x3 and moves all extremities SENSORIUM/ORIENTATION: Yes alert Skin: COMMON NORMALS: no rashes or lesions noted GENERAL SKIN EXAM: no ra shes or lesions noted Data : 06/06/22 12:40 06/06/22 14:54 A&P Assessment and plan (1) Hypotension: Improved with fluid boluses. Hold blood pressure medications, diuretic. May have some dehydration, which she states is an ongoing issue for him sometimes. He still takes his medications even if he is hypotensive. Discussed with him as he does measure blood pressures not to take the medications if the blood pressure is less than 110 systolic. Discussed with him for now we will hold diuretics. He also has chronic diarrhea which may have contributed. Alternatively discussed with him also possibility of although less likely metformin induced lactic acidosis. Hold metformin. We will follow-up lactic acid. Additionally will complete troponin EKG series. Discussed with him imaging with contrast-induced echocardiogram given poor ultrasonic pictures on last echo to exclude structural heart disease given syncope at rest. He is agreeable. 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 Head and neck CTA just in March without large vessel stenosis or occlusion. Status: Acute (3) High anion gap metabolic acidosis: Serum and urine ketones normal. He does get recurrent diarrhea due to this as well as the lactic acidosis we will for now hold off metformin. Does have kidney injury as well likely contributing to gap metabolic acidosis. As well as lactic acidosis. Status: Acute (4) Lactic acidosis: Possibly hypoperfusion secondary to hypotension. Recheck lactic acid level. Less likely metformin induced lactic acidosis. Hold metformin. Discussed with him. Status: Acute (5) JANIE (acute kidney injury): Received fluid challenge. Hold diuretic. Hold lisinopril. Other antihypertensives. Monitor blood pressures. Likely prerenal with hypotension, although he did take ibuprofen, less likely due to NSAIDs. Status: Acute (6) Dark stools: Occult blood test. Continue aspirin, Plavix for now, reassess hemoglobin. Increase PPI to twice daily. Discussed with him to avoid NSAIDs. May benefit from repeat endoscopy. 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 Status: Acute (8) Occasional tremors: He also gets intermittent tremors sometimes low amplitude, sometimes higher amplitude, sometimes intention tremor. States that sometimes it is to the point that food is falling off his fork. Follow-up as outpatient. Status: Acute Plan Spinal stenosis: Noted on lumbar MRI. Continue outpatient follow-up. History of TIA HLD DM2 Attestations 2 Medical Necessity Statement*: Place in observation for additional assessment of presyncopal episode while sitting, recurrent episodes of dizziness, hypotension, lactic acidosis, JANIE. Coding Level of Care Code Acute Stock Counter for g Fwd Diagnoses Hypotension I95.9 Pre-syncope R55 High anion gap metabolic acidosis E87.2 Lactic acidosis E87.2 JANIE (acute kidney injury) N17.9 Dark stools R19.5 Lung granuloma J84.10 Occasional tremors R25.1
[2022-06-06 19:40] LABS: Troponin 5 6HR 11.02 ng/L (0-15)
[2022-06-07] VITALS (7 sets, daily range): BP systolic 121–168; BP diastolic 63–93; PULSE 72–93; RESP 15–16; TEMP 36.6–36.7; O2SAT 95–97; BMI 32.1
[2022-06-07] MEDS: sodium chloride 0.9% 1,000 ML 100 ML IV ×2 (00:19→09:45)
[2022-06-07 00:24] LABS: Glucose Point of Care 197 mg/dL (70-110)
[2022-06-07] MEDS: insulin lispro 100 unit/1 mL SUBCUT ×2 (00:24→12:29)
[2022-06-07 03:25] LABS: Basophils # 0.1 10^3/uL (0.0-0.1); Basophils % 0.8 %; Eosinophils # 0.1 10^3/uL (0.0-0.8); Eosinophils % 1.4 %; Hematocrit 38.1 % (42.0-52.0); Hemoglobin 12.7 g/dL (11.7-16.6); Lymphocytes # 2.1 10^3/uL (0.8-4.8); Lymphocytes % 28.9 %; Mean Corpuscular HGB Conc 33.3 g/dL (30.0-36.0); Mean Corpuscular Hemoglobin 30.6 pg (28.0-34.0); Mean Corpuscular Volume 91.8 fl (80-94); Mean Platelet Volume 11.1 fL (7.4-10.4); Monocytes # 0.8 10^3/uL (0.2-0.9); Monocytes % 10.6 %; Neutrophils # 4.28 10^3/uL (1.8-7.7); Nucleated Red Blood Cells % 0 %; Platelet Count 249 10^3/cmm (130-400); Red Blood Count 4.15 10^6/uL (4.1-5.3); Red Cell Distribution Width 13.6 % (12.1-15.1); White Blood Count 7.4 10^3/uL (4.0-10.0)
[2022-06-07 03:51] LABS: Alanine Aminotransferase 15 U/L (0-41); Albumin Level 3.6 g/dL (3.5-5.2); Alkaline Phosphatase 77 U/L (40-130); Anion Gap 15.5 (5-19); Aspartate Amino Transferase 12 U/L (0-40); Blood Urea Nitrogen 17 mg/dL (8-23); Carbon Dioxide 25 mmol/L (22-29); Chloride 105 mmol/L (98-107); Globulin 2.1 g/dL (1.3-4.6); Glucose 98 mg/dL (65-115); Osmolality Calculated 296 mOsm/kg (285-295); Potassium 3.5 mmol/L (3.5-5.1); Sodium 142 mmol/L (136-145); Thyroid Stimulating Hormone 3.66 uIU/mL (0.27-4.20); Total Bilirubin 0.3 mg/dL (0.15-1.2); Total Protein 5.7 g/dL (6.6-8.7)
[2022-06-07] MEDS: perflutren protein-a microsphr 0.22 mg/mL SDV 3 mL IV (05:50)
[2022-06-07 06:28] LABS: Glucose Point of Care 110 mg/dL (70-110)
[2022-06-07] MEDS: aspirin 81 mg EC Tablet PO (06:43)
[2022-06-07] MEDS: clopidogrel 75 mg Tablet PO (08:48)
[2022-06-07] MEDS: pantoprazole DR 40 mg Tablet PO (08:48)
[2022-06-07] MEDS: buPROPion SR (12 HR) 150 mg Tablet PO ×2 (08:48→17:20)
--- NOTE | 2022-06-07 09:19 | PC.CHAP ---
Pastoral Care Encounter/Spiritual Assessment Type of Contact [] Declined forming operator visit [] Patient/Family/Request visit [] Outpatient visit [] Follow-up visit [] Physician referral [] Code/Alert [x] Routine visit [] Staff referral [] Actively dying [] Patient sleeping [] Family support [] [] Out of room [] Palliative care [] [] Receiving care in room [] Pre-surgical visit [] Trauma [] Long length of stay [] ICU visit [] Other: Relational/Emotional Strength [x] Patient feels connected with others/family/visitors/staff [] Distress [] Loneliness/isolation [] Abandonment Spirituality of Patient [] Person of Lashay [] Attends Jew of their Lashay [] Believes in Prayer [] Reads Bible or Mormonism materials [x] There are Spiritual issues to be addressed Welcome Center Attendant Interventions [] Prayer [x] Active listening [x] Non-anxious presence [x] Spiritual/emotional support [] Crisis/trauma care [] Spiritual counseling [] Bereavement support [] Provided bereavement packet [] Provided Bible/devotional materials [] Provided toy/stuffed animal, coloring book to patient or family member [] Provided Communion [] Anointing/[place] [] Salvation [x] Completed spiritual assessment [] Other: Impact on Illness or Injury [] Angry [] Fearful [] Anxious [] Often cries [] Exhaustion [] Unable to work [] Unable to attend mandaeism [] Unable to walk/stand [] Unable to read [] Unable to drive [] Unable to eat/drink [] Unable to sleep [] Unable to be with family [] Patient intubated [] Other: Summary Pt has a good sense of humor. Described himself as a person not having a jew. 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 Last place he was living prior to coming to [place] was [place]. He is not happy with his vet medical benefits and expressed concern about being able to get onto Medicare. Time spent with patient 5m
[2022-06-07] MEDS: atorvastatin 40 mg Tablet 80 MG PO (09:44)
[2022-06-07] MEDS: gabapentin 300 mg Capsule 900 MG PO (09:44)
[2022-06-07 11:27] LABS: Glucose Point of Care 164 mg/dL (70-110)
[2022-06-07 17:05] LABS: Glucose Point of Care 111 mg/dL (70-110)
--- NOTE | 2022-06-07 17:37 | P.DS_ITS ---
Discharge Providers Date of Admission: 06/06/22 23:46 Date of Discharge: June 07, 2022 Attending Provider at Admission: Lucien Phillips Attending Provider at Discharge: Lucien Phillips Diagnoses at Discharge Discharge Diagnosis (1) Hypotension: Status: Acute (2) Pre-syncope: Status: Acute (3) High anion gap metabolic acidosis: Status: Acute (4) Lactic acidosis: Status: Acute (5) JANIE (acute kidney injury): Status: Acute (6) Dark stools: Status: Acute (7) Lung granuloma: Status: Acute (8) Occasional tremors: Status: Acute Reason for Visit Reason for Visit: Dizziness and blur vision Brief History: Pleasant 71-year-old gentleman with history of recurrent episodes of lightheadedness, accompanied by kaleidoscope vision, not preceded by any prodromal symptoms, he usually lies down on the floor for a while and they go away, states that today he had an episode while sitting in his truck which was much worse than usual.? 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 He tells me that he had no issues during the imaging studies, subsequently had some lunch at a restaurant, left, made his phone calls, and only after getting in and sitting in his truck noticed he started feeling unwell.? Denies any chest pain or pressure.? Has not had any shortness of breath or cough, although states can get dyspneic with exertion.? Denies any lower extremity edema, no orthopnea.? States that his blood pressure sometimes gets low.? He measures his blood pressures twice daily, and states sometimes noticed they will be as low as in the 60s.? He states he still takes all his m edications regardless of what his blood pressure is. He states otherwise his appetite been not the best as food has not been tasting well, however, states he has not been eating less than usual.? He does state that he may have been dehydrated recently.? On asking if he has diarrhea, states yes, all the time .? Rarely has a solid stool maybe once a week.? Recurrent diarrhea is been going on for years.? States that sometimes it is dark, he knows because he watches out for blood.? He had a colonoscopy 3-4 years ago.? Has had an upper endoscopy but it has been a much longer time than that.? Occasionally takes ibuprofen, states had to take some on Sunday due to headache which it resolved.? States that he when he goes to the doctor usually everything is fine, so he has not told his doctor about any of these issues. In ER initially blood pressure low, responded well to IV fluid boluses. He is noted to have acute kidney injury, creatinine 1.5.? Also noted to have worsening anion gap metabolic acidosis, with lactic acidosis.? Observation was requested. Recent CT angiogram in March of his head and neck without any large vessel occlusion. Stress test noted 03/24/2021 without evidence of ischemia. Hospital Course Hospital Course He did well while monitored in the hospital. Orthostatic vital signs were unremarkable. He had no further episodes. Did not have any chest pain or pressure. No arrhythmia noted while in hospital. He was assessed with echocardiogram with contrast due to poor ultrasonic windows on prior study, with finding of normal ejection fraction, grade 1 diastolic dysfunction, trace TVR. No significant change from prior echo. His blood pressure is improved off of antihypertensives. Blood pressures remain normal off antihypertensives. Did well without hypotension on resumption of gabapentin. He is asked to discontinue his antihypertensives given recurrent episodes of hypotension at home. Counseled him to hold off any medications and blood pressures are low. Please reassess blood pressures, resume antihypertensive cautiously/gradually if needed in case blood pressures rising, avoid hypotension. Troponin and EKG series not suggestive of ischemia. Only mild high-sensitivity troponin abnormality 19-17-11. UA unremarkable. With resolution of hypotension his anion gap acidosis, lactic acidosis resolved. In case metformin was contributing to his diarrhea, dehydration, or on the lower chance of rare metformin use lactic acidosis he is asked to discontinue metformin. As he was otherwise doing well, he is discharged for further outpatient follow- up, at discharge discussed with him also regarding conveyor monitor, request is made, please confirm that conveyor monitor is set up for him, if not possible [facility] to further assess for any intermittent arrhythmia contributing to her symptoms. His blood counts did not show any significant decrease. Fecal occult blood test was requested, but could not be collected. He is started on PPI. Please assist him with setting up additional evaluation including endoscopy if needed. Please reassess blood counts at next visit. Please follow-up with him with regards to difficulties ambulating, noted severe spinal stenosis on the preadmission MRI. Physical Exam Narrative: He is awake, alert, pleasant, conversant, reports he is feeling well today. No complaints. No recurrence of any discomfort or presyncopal symptoms. Const: COMMON NORMALS: patient oriented x3 and alert GENERAL APPEARANCE: cooperative ORIENTATION/CONSCIOUSNESS: Yes awake HENMT: COMMON NORMALS: oropharynx normal Neck/C-Spine: COMMON NORMALS: no JVD Resp: COMMON NORMALS: normal respiratory effort and clear to auscultation bilaterally AUSCULTATION: clear to auscultation bilaterally Cardio: COMMON NORMALS: no JVD, regular rhythm, S1 normal heart sound present, S2 normal heart sound present and No murmurs present (Cardio) RHYTHM: regular rhythm HEART SOUNDS: S1 normal heart sound present and S2 normal heart sound present GI: COMMON NORMALS: Normal to inspection, nondistended, normoactive bowel sounds present, Soft to palpation and non-tender PALPATION: Yes Soft to palpation Extremity: COMMON NORMALS: no joint enlargement and no pedal edema Neuro: COMMON NORMALS: patient oriented x3 and moves all extremities SENSORIUM/ORIENTATION: Yes alert Skin: COMMON NORMALS: no rashes or lesions noted GENERAL SKIN EXAM: no rashes or lesions noted Discharge Data Studies Completed and Pending Completed Studies During Hospitalization Category Date Time Status XR chest 1V portable [id number] Stat Exams 06/06/22 12:20 Completed Pending at discharge Category Date Time Status Complete Blood Count w/Auto AM LABS Lab 06/08/22 04:00 Ordered Complete Blood Count w/Auto AM LABS Lab 06/09/22 04:00 Ordered Comprehensive Metabolic Panel AM LABS Lab 06/08/22 04:00 Ordered Comprehensive Metabolic Panel AM LABS Lab 06/09/22 04:00 Ordered Fecal Occult Blood [Immunochemical Fecal OCB] Routine Lab 06/06/22 23:46 Uncollected CV. echo wo/w contrast [id number] Stat Ultrasound 06/07/22 19:10 Taken Radiology Impressions Chest X-Ray 06/06/22 12:20 IMPRESSION: Stable suspected left base granuloma. Laboratory Results WBC 7.4 10^3/uL (4.0-10.0) 06/07/22 02:01 RBC 4.15 10^6/uL (4.1-5.3) 06/07/22 02:01 Hgb 12.7 g/dL (11.7-16.6) 06/07/22 02:01 Hct 38.1 % (42.0-52.0) L 06/07/22 02:01 MCV 91.8 fl (80-94) 06/07/22 02:01 MCH 30.6 pg (28.0-34.0) 06/07/22 02:01 MCHC 33.3 g/dL (30.0-36.0) 06/07/22 02:01 RDW 13.6 % (12.1-15.1) 06/07/22 02:01 Plt Count 249 10^3/cmm (130-400) 06/07/22 02:01 MPV 11.1 fL (7.4-10.4) H 06/07/22 02:01 Neut % (Auto) 58.0 % 06/07/22 02:01 Lymph % (Auto) 28.9 % 06/07/22 02:01 [place] % (Auto) 10.6 % 06/07/22 02:01 Eos % (Auto) 1.4 % 06/07/22 02:01 Baso % (Auto) 0.8 % 06/07/22 02:01 Neut # (Auto) 4.28 10^3/uL (1.8-7.7) 06/07/22 02:01 Lymph # (Auto) 2.1 10^3/uL (0.8-4.8) 06/07/22 02:01 [place] # (Auto) 0.8 10^3/uL (0.2-0.9) 06/07/22 02:01 Eos # (Auto) 0.1 10^3/uL (0.0-0.8) 06/07/22 02:01 Baso # (Auto) 0.1 10^3/uL (0.0-0.1) 06/07/22 02:01 Nucleated RBC % (auto) 0 % 06/07/22 02:01 Nucleated RBCs # 0.0 /100WBC 06/07/22 02:01 Sodium 142 mmol/L (136-145) 06/07/22 02:01 Potassium 3.5 mmol/L (3.5-5.1) 06/07/22 02:01 Chloride 105 mmol/L (98-107) 06/07/22 02:01 Carbon Dioxide 25 mmol/L (22-29) 06/07/22 02:01 Anion Gap 15.5 (5-19) 06/07/22 02:01 BUN 17 mg/dL (8-23) 06/07/22 02:01 Creatinine 1.2 mg/dL (0.7-1.2) 06/07/22 02:01 GFR Calculation Not Reportable 06/07/22 02:01 Glucose 98 mg/dL (65-115) 06/07/22 02:01 POC Glucose 111 mg/dL (70-110) H 06/07/22 17:01 Calculated Osmolality 296 mOsm/kg (285-295) H 06/07/22 02:01 Lactate 3.2 mmol/L (0.5-2.2) H 06/06/22 17:23 Calcium 9.0 mg/dL (8.5-10.5) 06/07/22 02:01 Total Bilirubin 0.3 mg/dL (0.15-1.2) 06/07/22 02:01 AST 12 U/L (0-40) 06/07/22 02:01 ALT 15 U/L (0-41) 06/07/22 02:01 Alkaline Phosphatase 77 U/L (40-130) 06/07/22 02:01 Creatine Kinase 47 U/L (39-308) 06/06/22 12:40 Troponin T Baseline 19 ng/L (0-15) H 06/06/22 12:40 Troponin T 120 Minute 17.08 ng/L (0-15) H 06/06/22 14:54 Delta Troponin T -1.92 ABS# (0-10) L 06/06/22 14:54 Troponin T Hi Sens 6Hr 11.02 ng/L (0-15) 06/06/22 18:54 Troponin T Hi Sens 6Hr Delta -7.98 ng/L (0-12) L 06/06/22 18:54 Total Protein 5.7 g/dL (6.6-8.7) L 06/07/22 02:01 Albumin 3.6 g/dL (3.5-5.2) 06/07/22 02:01 Globulin 2.1 g/dL (1.3-4.6) 06/07/22 02:01 Lipase 32 U/L (13-60) 06/06/22 12:40 TSH 3.66 uIU/mL (0.27-4.20) 06/07/22 02:01 Urine Color Yellow (Yellow) 06/06/22 17:45 Urine Appearance Clear (CLEAR) 06/06/22 17:45 Urine pH 5 (5-7) 06/06/22 17:45 Ur Specific [place] 1.015 (1.005-1.030) 06/06/22 17:45 Urine Protein Neg (Negative) 06/06/22 17:45 Urine Glucose (UA) Trace (Normal) H 06/06/22 17:45 Urine Ketones Negative (Negative) 06/06/22 17:45 Urine Blood Neg (Negative) 06/06/22 17:45 Urine Nitrate Negative (Negative) 06/06/22 17:45 Urine Bilirubin Neg (Negative) 06/06/22 17:45 Urine Urobilinogen Neg mg/dL (Negative) 06/06/22 17:45 Ur Leukocyte Esterase Negative (Negative) 06/06/22 17:45 Serum Ketones Negative (Negative) 06/06/22 12:40 Vitals Last Vital Signs Temp 98.0 F 06/07/22 15:49 Pulse 85 06/07/22 15:49 Resp 16 06/07/22 15:49 BP 125/66 06/07/22 15:49 Pulse Ox 96 06/07/22 15:49 O2 Del Method 06/07/22 15:49 Discharge Plan Discharge Patient Disposition: Home Condition: Stable Prescriptions: Continued bupropion HCl 150 mg Tablet Sustained-Release 12 Hr 150 mg PO BID aspirin 81 mg Tablet,Delayed Release (Dr/Ec) 81 mg PO DAILY@0700 omeprazole 20 mg Capsule,Delayed Release(Dr/Ec) 20 mg PO DAILY@0700 rosuvastatin 40 mg Tablet 40 mg PO DAILY latanoprost (PF) 0.005 % Drops 1 drp OPHTHALMIC (EYE) BEDTIME Rx Instructions: USE IN BOTH EYES gabapentin 300 mg capsule 900 mg PO BID Vitamin B-12 1,000 mcg Tablet 1,000 mcg PO DAILY Vitamin C 500 mg Tablet 500 mg PO DAILY lisinopril 20 mg Tablet 20 mg PO DAILY glimepiride 4 mg Tablet 2 mg PO QAM cholecalciferol (vitamin D3) [Vitamin D3] 25 mcg (1,000 unit) Capsule 25 mcg PO DAILY clopidogrel 75 mg tablet 75 mg PO DAILY Qty: 30 0RF Discontinued metformin 1,000 mg Tablet 1,000 mg PO BID hydrochlorothiazide 25 mg Tablet 25 mg PO DAILY Discharge Orders: Discharge Order (Routine); Ordered 06/07/22 Ordered By: Lucien Phillips Other Ambulatory Orders: MCT/Event Monitor 21 Days (Routine) Timeframe: 1 Day Facility: [facility] - Location: Radiology Ordered By: Lucien Phillips Referrals: Lyndsay Topete MD [Referring] - 4-7 days (faxed the [facility] needs appointment and heart monitor) Discharge Diet: Cardiac and Diabetic Discharge Activity: Increase activity as tolerated Patient Instructions: Opioid Safety Activity Restrictions/Additional Instructions: Please continue to monitor your blood pressures twice daily, write down values to bring to your appointment. Please for now hold off all your antihypertensive medications until follow-up with your primary provider. Concern is that your blood pressure gets too low causing your episodes of near fainting. Going forward please make sure to measure blood pressures and if they are below 110 top number or below 50 bottom number, please hold your blood pressure medications. Please note that the gabapentin in case of inadequate clearance (example with kidney injury) may cause low blood pressures well. Please complete the 21-day conveyor monitor to exclude any abnormal heart rhythms contributing to episodes of fainting, follow-up with your primary doctor. Please follow-up with your primary doctor also regarding dark stools, discuss referral for endoscopic evaluation due to concern for slow blood loss in GI tract. Avoid any NSAIDs like ibuprofen, Aleve, etc. 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 Please have your primary doctor recheck your kidney function to confirm recovery from acute kidney injury. Again avoid any NSAIDs like ibuprofen, Aleve, etc. which may contribute to kidney injury. Please also discuss with your primary doctor occasional tremors, discussed referral for assessment to neurology. On the chance that lactic acidosis, low blood pressure and other symptoms were related to metformin, and/or if metformin is causing your recurrent/chronic diarrhea, please hold this medication for now. Discharge Attestations Time Spent in Discharge Care*: greater than 30 min Quality Metrics Clinical Quality Measures [ No reported AMI, CVA or VTE this stay] Coding Level of Care Code Acute Chg FW DC note Diagnoses Hypotension I95.9 Pre-syncope R55 High anion gap metabolic acidosis E87.2 Lactic acidosis E87.2 JANIE (acute kidney injury) N17.9 Dark stools R19.5 Lung granuloma J84.10 Occasional tremors R25.1
--- NOTE | 2022-06-07 19:10 | USCV_ITS ---
Ramón Armando Age: 71 Gender: M : 1950 Exam Date: 06/07/2022 01:20 Ordering Phys: Lucien Phillips MD Technologist: JUDI Exam [place] [facility] [place] Indication: chest pain BP: 154 / 86 HR: 82 Rhythm: Sinus Technical Quality: Adequate with [employer] MEASUREMENTS (Male / Female) Normal Values 2D ECHO LV Diastolic Diameter PLAX 3.4 cm 4.2 - 5.9 / 3.9 - 5.3 cm LV Systolic Diameter PLAX 2.1 cm IVS Diastolic Thickness 1.5 cm 0.6 - 1.0 / 0.6 - 0.9 cm IVS Systolic Thickness 1.7 cm LVPW Diastolic Thickness 1.5 cm 0.6 - 1.0 / 0.6 - 0.9 cm LVPW Systolic Thickness 1.3 cm LVOT Diameter 2.1 cm LV Ejection Fraction 2D Teich 68.6 % LV Ejection Fraction MOD 2C 73.6 % LV Ejection Fraction 2C AL 75.4 % LA Diameter 4.1 cm LA Width 3.3 cm LA Height 4.8 cm RA Width 3.5 cm RA Height 3.5 cm Aorta at Sinotubular Diameter 3.3 cm IVC Diameter 1.4 cm M-MODE Aortic Annulus Diameter 3.4 cm LA Ao Ratio MM 0.9 MV E Point Septal Separation 0.4 cm DOPPLER AV Peak Velocity 110.0 cm/s LVOT Peak Velocity 81.0 cm/s AV Area Cont Eq vti 2.5 cm squared AV Area Cont Eq pk 2.5 cm squared MV Area PHT 4.9 cm squared Mitral E to A Ratio 0.9 MV E' Velocity 45.0 cm/s Mitral E to MV E' Ratio 10.7 Mitral E to LV E' Lateral Ratio 10.7 Mitral E to LV E' Septal Ratio 10.7 TR Peak Velocity 234.3 cm/s TR Peak Gradient 22.0 mmHg TV Peak E Velocity 43.0 cm/s Right Atrial Pressure 5.0 mmHg Pulmonary Artery Systolic Pressu 27.0 mmHg PV Peak Velocity 105.0 cm/s RV Acceleration Time 0.1 s RV Ejection Time 0.3 s RV AcT/ET 0.3 FINDINGS Left Ventricle Left ventricle is normal in size. LV systolic function is normal with EF of 55 to 60%. No regional wall motion abnormalities are seen. Grade 1 diastolic dysfunction Right Ventricle Normal in size and function Right Atrium Normal in size Left Atrium Normal in size Mitral Valve Structurally normal mitral valve. No significant stenosis or regurgitation. Aortic Valve Aortic valve is grossly normal. No significant stenosis or regurgitation. Tricuspid Valve Trace tricuspid regurgitation. Insufficient TR jet calculate RVSP. Pulmonic Valve Not visualized Pericardium Normal Aorta Grossly normal IVC CONCLUSIONS Technically limited quality echocardiogram because of poor ultrasonic windows. LV systolic function is normal with EF 55 to 60%. Grade 1 diastolic dysfunction. Trace tricuspid regurgitation Compared to prior echocardiogram from 03/23/2021, no significant changes are seen with Anand Regalado MD (Electronically Signed) Final Date: 07 June 2022 18:37 S
== END 2022-06-07 17:46 | disposition home or self-care (01) ==
LOC: ER 17:57 → MEDSURG 23:19
PROVIDERS: Family Medicine; Admitting Provider Internal Medicine; Emergency Provider Emergency Medicine; Visit Provider Internal Medicine
DX: I95.9 Hypotension, unspecified (principal); R55 Syncope and collapse; E87.2 Acidosis; N17.9 Acute kidney failure, unspecified; R19.5 Other fecal abnormalities; J84.10 Pulmonary fibrosis, unspecified; R25.1 Tremor, unspecified; Z79.82 Long term (current) use of aspirin; E11.9 Type 2 diabetes mellitus without complications; Z79.84 Long term (current) use of oral hypoglycemic drugs; F41.9 Anxiety disorder, unspecified; E78.5 Hyperlipidemia, unspecified; Z87.891 Personal history of nicotine dependence; M48.00 Spinal stenosis, site unspecified; Z86.73 Personal history of transient ischemic attack (TIA), and cerebral infarction without residual deficits
CPT/HCPCS: 36415; 36416; 71045; 80048; 80053; 81003; 82009; 82550; 82962; 83605; 83690; 84443; 84484; 85025; 93005; 96360; 96361; 96372; 99285; C8929; G0378; J1815; J7030; Q9956

== ENCOUNTER → 2022-08-16 10:54 | Outpatient (BNVA) | payer OTHER, SELFPAY | PROVIDERS: PCP Family Medicine; Visit Provider Internal Medicine | DX: R42 Dizziness and giddiness (principal); R55 Syncope and collapse; E11.69 Type 2 diabetes mellitus with other specified complication; Z79.84 Long term (current) use of oral hypoglycemic drugs; E78.5 Hyperlipidemia, unspecified; F41.9 Anxiety disorder, unspecified; Z87.891 Personal history of nicotine dependence; I25.2 Old myocardial infarction; R94.31 Abnormal electrocardiogram [ECG] [EKG] | CPT/HCPCS: 99204 ==

== ENCOUNTER 2022-09-06 14:02 | Outpatient (CLI) | payer OTHER, SELFPAY ==
--- NOTE | 2022-09-06 14:09 | MR_ITS ---
WS: [id number] MRI THORACIC SPINE noncontrast. HISTORY: WEAKNESS OF BOTH LOWER EXTREMITIES/LUMBAR STENOSIS COMPARISON: None available. TECHNIQUE: Multiplanar sequences are performed in sagittal and axial planes. Mild increase in thoracic kyphosis. No fracture or marrow edema. Signal within the cord is normal. Ve ry slight desiccation of the disc and disc space narrowing. Benign hemangioma at T9. T1-2: Normal. T2-3: Very mild foraminal narrowing. T3-4: Mild bilateral foraminal narrowing due to facet arthritis. T4-5: Normal. T5-6: Mild bilateral foraminal narrowing and facet arthritis. Very tiny RIGHT paracentral disc protr usion. T6-7: Mild LEFT foraminal narrowing. T7-8: Mild facet arthritis and foraminal narrowing. T8-9: Mild bilateral foraminal narrowing. There is slight annular disc bulging with ligamentum flavu m and facet arthritis. T9-10: Bilateral facet joint arthritis. T10-11: Mild annular disc bulging with ligamentum flavum and facet arthritis. Very tiny RIGHT parace ntral disc protrusion. Mild central and bilateral foraminal stenosis. T11-12: Moderate bilateral facet joint arthritis and mild foraminal narrowing. T12-L1: Mild facet joint arthritis. Paravertebral soft tissues are negative. MR/MR thoracic spin wo con* [id number] IMPRESSION: 1. Multilevel foraminal stenoses due to facet joint arthritis as described abo ve. 2. Mild central and bilateral foraminal stenosis at T10-11.
== END 2022-09-06 14:03 | disposition home or self-care (01) ==
LOC: RAD 14:04
PROVIDERS: PCP Family Medicine; Visit Provider Surgery
DX: R29.898 Other symptoms and signs involving the musculoskeletal system (principal)
CPT/HCPCS: 72146

== ENCOUNTER 2022-10-11 08:20 | Outpatient (CLI) | payer OTHER, SELFPAY ==
--- NOTE | 2022-10-11 08:32 | MR_ITS ---
WS: [id number] MRI LEFT SHOULDER NONCONTRAST TECHNIQUE: Sagittal T2, coronal T1, T2 and proton density imaging. Axial gradient PDE imaging. CLINICAL INFORMATION: CONTINUED PAIN IN LEFT DELTOID SHOULDER COMPARISON: None. FINDINGS: Moderate degenerative arthritis AC joint. Mild downsloping acromion. Slight subacromial spurring. Sli ght impingement on the distal supraspinatus. Edema at the AC joint. Tiny insertional tear at the dist al supraspinatus. No tendon retraction. Normal infraspinatus. Normal teres minor. Normal subscapulari s. Tendinopathy intra-articular biceps tendon. Normal biceps labral anchor. Normal biceps tendon in the bicipital groove. Degenerative fraying of the glenoid labrum. No edema in the glenoid. MR/MR shoulder LT wo con* [id number] IMPRESSION: 1. Tiny tear at the supraspinatus insertion. No tendon retraction. 2. Rotator cuff is otherwise normal in appearance. 3. T2 hyperintensity with tendinopathy involving the intra-articular biceps te ndon. 4. Normal biceps tendon in the bicipital groove. Biceps labral anchor appears intact. 5. Moderate degenerative arthritis AC joint with mild edema and downsloping ac romion. Slight impingement on the distal supraspinatus.
== END 2022-10-11 08:21 | disposition home or self-care (01) ==
LOC: RAD 08:25
PROVIDERS: PCP Family Medicine; Visit Provider Family Medicine
DX: Z01.89 Encounter for other specified special examinations (principal)
CPT/HCPCS: 73221

== ENCOUNTER → 2022-11-15 12:37 | Outpatient (BNVA) | payer OTHER, SELFPAY | PROVIDERS: PCP Family Medicine; Visit Provider Internal Medicine | DX: R42 Dizziness and giddiness (principal); E11.69 Type 2 diabetes mellitus with other specified complication; Z79.84 Long term (current) use of oral hypoglycemic drugs; E78.5 Hyperlipidemia, unspecified; F41.9 Anxiety disorder, unspecified; Z87.891 Personal history of nicotine dependence; Z79.82 Long term (current) use of aspirin | CPT/HCPCS: 99213 ==

== ENCOUNTER 2022-12-29 06:00 | Outpatient (RCR) | payer OTHER, SELFPAY | END 2023-01-21 23:59 | disposition home or self-care (01) | LOC: SPT 06:00 | PROVIDERS: Visit Provider Family Medicine | DX: M25.512 Pain in left shoulder (principal) | CPT/HCPCS: 97110; 97161 ==

== ENCOUNTER 2023-01-22 06:00 | Outpatient (RCR) | payer OTHER, SELFPAY | END 2023-02-21 23:59 | disposition home or self-care (01) | LOC: SPT 06:00 | PROVIDERS: Visit Provider Family Medicine | DX: M25.512 Pain in left shoulder (principal) | CPT/HCPCS: 97110 ==

== ENCOUNTER 2023-02-02 11:24 | Outpatient (CLI) | payer OTHER, SELFPAY ==
--- NOTE | 2023-02-02 11:15 | USCV_ITS ---
Ramón Armando Age: 72 Gender: M : 1950 Exam Date: 02/02/2023 11:50 Ordering Phys: Anand Regalado M.D ([email or web address]) Technologist: Tomasa Hernandez [place]am [place] [facility] [place]ication: PRE SYNCOPE EPISODES Risk Factors: Unknown Previous Vascular Surgery: None Right Brachial BP: / Left Brachial BP: / Right Left Velocity (cm/s) Spectral Plaque Velocity (cm/s) Spectral Plaque Syst/Diast Broadening Syst/Diast Broadening 125.70/19.80 Prox CCA 118.50/ 17.30 84.90/ 18.70 Mid CCA 85.90 / 15.90 64.50/ 9.30 Hetro Distal CCA 75.00 / 13.10 72.20/ 16.30 Hetro Prox ICA 60.50 / 17.10 Hetro 83.10/ 27.20 Mid ICA 76.00 / 21.10 78.40/ 24.10 Distal ICA 97.10 / 33.90 92.40 Hetro ECA 60.00 Hetro 0.98 ICA/CCA 1.13 Antegrade Vertebral Antegrade 36.70/ 8.10 cm/s 42.00/ 11.00 cm/s Tri Subclavian Tri 54.30 96.10 FINDINGS Minimal plaques at the right and left bifurcations and proximal internal carotid arteries Antegrade flow in the vertebral arteries bilaterally Normal Doppler flow velocities in the external carotid and subclavian arteries bilaterally CONCLUSIONS Minimal plaques at the bifurcations and proximal internal carotid arteries bilaterally, suggesting less than 50% stenosis No significant stenosis in the vertebral, subclavian and external carotid arteries, based on the above findings Dr Lizette Hernandez MD [facility] (Electronically Signed) Final Date: 09 Feb 2023 07:07 S
== END 2023-02-02 11:25 | disposition home or self-care (01) ==
LOC: RAD 11:28
PROVIDERS: PCP Family Medicine; Visit Provider Internal Medicine
DX: R55 Syncope and collapse (principal); R42 Dizziness and giddiness
CPT/HCPCS: 93880

== ENCOUNTER → 2023-04-10 16:41 | Outpatient (BNVA) | payer OTHER, SELFPAY | PROVIDERS: PCP Family Medicine; Visit Provider Internal Medicine Pulmonary Disease | DX: G20 Parkinson's disease (principal); J84.10 Pulmonary fibrosis, unspecified; R06.02 Shortness of breath | CPT/HCPCS: 36415; 82785; 85025; 86003; 86140; 86160; 86162; 86200; 86235; 86255; 86376; 86431; 99204 ==

== ENCOUNTER 2023-05-24 12:06 | Emergency (ER) | payer OTHER, SELFPAY ==
[2023-05-24 12:11] VITALS: BP 159/85; PULSE 78; RESP 16; TEMP 37.2; O2SAT 97; BMI 30.5
--- NOTE | 2023-05-24 13:56 | ED_ITS ---
HPI - Abdominal Pain General: Chief Complaint: Abdominal Pain Stated Complaint: lower pelvis pain Time Seen by Provider: 05/24/23 13:50 History of Present Illness: Presents to the ER with complaints of right lower quadrant abdominal pain that radiates down into his groin. Patient says this pain started about 8:00 last night and was really bad. Patient is having nausea with this. Patient has never had any surgeries on his abdomen. Patient has had a history of kidney stones in the past. With a stone present exactly like this. Patient has had a bowel movement and urinated since this pain started. No change in bowel movement. Patient's urination did burn a little bit. Review of Systems General: Reports: 10 or more systems reviewed and unremarkable except in HPI and below PFSH ED PFSH: Medical History Anxiety Chronic back pain Hyperlipidemia Type 2 diabetes mellitus Surgical History History of cataract surgery History of nasal surgery Family History Other Cancer Dementia Stroke Social History Smoking and tobacco status: former smoker Alcohol intake: never Lives independently: Yes Household members: none Physical Exam Const: COMMON NORMALS: no acute distress, average body habitus, patient orie nted x3, no limitations, healthy appearing, alert and well nourished HENMT: COMMON NORMALS: normocephalic, atraumatic, hearing grossly normal bila terally, external ears normal, Normal external nose present and moist oral mucous membranes HEAD & SCALP: normocephalic and atraumatic NOSE: Normal external nose present EXTERNAL EAR: Yes external ears normal Neck/C-Spine: COMMON NORMALS: full ROM, no lymphadenopathy, supple, no meningeal signs, no JVD and Thyroid normal THYROID: Thyroid normal Chest: COMMONS NORMALS: normal inspection of the chest and normal palpation of entire chest wall Resp: COMMON NORMALS: normal respiratory effort, No retractions, No use of accessory muscles and clear to auscultation bilaterally AUSCULTATION: clear to auscultation bilaterally Cardio: COMMON NORMALS: no JVD, regular rate, regular rhythm, S1 normal heart sound present, S2 normal heart sound present, No gallops present (Cardio), No clicks present (Cardio), No murmurs present (Cardio) and No rub (Cardio) RATE: regular rate RHYTHM: regular rhythm HEART SOUNDS: S1 normal heart sound present and S2 normal heart sound present GI: COMMON NORMALS: Normal to inspection, nondistended, normoactive bowel sounds present, Soft to palpation, No hepatosplenomegaly present and no masses; negative for non-tender (Exquisitely tender in both right and left lower quadrants.) PALPATION: Yes Soft to palpation and Yes No hepatosplenomegaly present OTHER: Palpation of right lower quadrant patient stated pain radiated to his groin : COMMON NORMALS: Yes no CVA tenderness BLADDER/KIDNEY EXAM: Yes no CVA tenderness Back/Pelvis: COMMON NORMALS: no CVA tenderness Neuro: COMMON NORMALS: patient oriented x3 SENSORIUM/ORIENTATION: Yes alert MENINGEAL SIGNS: Yes no meningeal signs Course Vital Signs: Vital signs: Vital Signs Temperature 98.9 F 05/24/23 12:11 Pulse Rate 78 05/24/23 12:11 Respiratory Rate 16 05/24/23 12:11 Blood Pressure 159/85 05/24/23 12:11 Pulse Oximetry 98 05/24/23 14:33 Oxygen Delivery Me thod Room Air 05/24/23 14:33 MDM - Abdominal Pain Medical Decision Making Presents to the ER with complaints of lower right abdominal pain that radiates down to his groin. Patient states he has had multiple kidney stones in the past patient was worked up in normal fashion that included physical exam and lab work. Lab work showed he did have hematuria. BUN/creatinine was normal at 15 and 1.1, abdomen pelvis CT scan showed a 4 mm stone at right UVJ with mild to moderate upstream hydro-. Medical Records I reviewed the patient's medical records. Lab Data I reviewed the patient's lab results. 05/24/23 13:45 05/24/23 13:45 Labs/Radiology: Radiology Impressions Abdomen/Pelvis CT 05/24/23 15:16 IMPRESSION: 1. Obstructing 4 mm stone at the right UVJ with [id number] upstream hydroureteronephrosis. A few additional nonobstructing stones noted in the right kidney measuring up to 7 mm in size. 2. 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 Laboratory Results WBC 11.01 10^3/uL (3.29-11.43) 05/24/23 13:45 RBC 4.86 10^6/uL (3.85-5.65) 05/24/23 13:45 Hgb 14.70 g/dL (11.27-16.99) 05/24/23 13:45 Hct 43.7 % (37-53) 05/24/23 13:45 MCV 89.9 fl (82-101) 05/24/23 13:45 MCH 30.2 pg (27-33) 05/24/23 13:45 MCHC 33.6 g/dL (30-55) 05/24/23 13:45 RDW 13.8 % (12.1-15.1) 05/24/23 13:45 Plt Count 268 10^3/cmm (157-399) 05/24/23 13:45 MPV 10.5 fL (7.4-10.4) H 05/24/23 13:45 Neut % (Auto) 79.6 % 05/24/23 13:45 Lymph % (Auto) 12.1 % 05/24/23 13:45 [place] % (Auto) 7.0 % 05/24/23 13:45 Eos % (Auto) 0.4 % 05/24/23 13:45 Baso % (Auto) 0.5 % 05/24/23 13:45 Neut # (Auto) 8.78 10^3/uL (1.8-7.7) H 05/24/23 13:45 Lymph # (Auto) 1.3 10^3/uL (0.8-4.8) 05/24/23 13:45 [place] # (Auto) 0.8 10^3/uL (0.2-0.9) 05/24/23 13:45 Eos # (Auto) 0.0 10^3/uL (0.0-0.8) 05/24/23 13:45 Baso # (Auto) 0.1 10^3/uL (0.0-0.1) 05/24/23 13:45 Nucleated RBC % (auto) 0 % 05/24/23 13:45 Nucleated RBCs # 0.0 /100WBC 05/24/23 13:45 Sodium 140 mmol/L (136-145) 05/24/23 13:45 Potassium 4.3 mmol/L (3.5-5.1) 05/24/23 13:45 Chloride 104 mmol/L (98-107) 05/24/23 13:45 Carbon Dioxide 25 mmol/L (22-29) 05/24/23 13:45 Anion Gap 15.3 (5-19) 05/24/23 13:45 BUN 15 mg/dL (8-23) 05/24/23 13:45 Creatinine 1.1 mg/dL (0.7-1.2) 05/24/23 13:45 GFR Calculation Not Reportable 05/24/23 13:45 Glucose 121 mg/dL (65-115) H 05/24/23 13:45 Calculated Osmolality 292 mOsm/kg (285-295) 05/24/23 13:45 Calcium 9.4 mg/dL (8.5-10.5) 05/24/23 13:45 Total Bilirubin 0.4 mg/dL (0.15-1.2) 05/24/23 13:45 AST 17 U/L (0-40) 05/24/23 13:45 ALT 25 U/L (0-41) 05/24/23 13:45 Alkaline Phosphatase 122 U/L (40-130) 05/24/23 13:45 Total Protein 7.1 g/dL (6.6-8.7) 05/24/23 13:45 Albumin 4.6 g/dL (3.5-5.2) 05/24/23 13:45 Globulin 2.5 g/dL (1.3-4.6) 05/24/23 13:45 Lipase 25 U/L (13-60) 05/24/23 13:45 Urine Color Yellow (Yellow) 05/24/23 13:57 Urine Appearance Clear (CLEAR) 05/24/23 13:57 Urine pH 5 (5-7) 05/24/23 13:57 Ur Specific [place] 1.025 (1.005-1.030) 05/24/23 13:57 Urine Protein Neg (Negative) 05/24/23 13:57 Urine Glucose (UA) Norm (Normal) 05/24/23 13:57 Urine Ketones 1+ (Negative) H 05/24/23 13:57 Urine Blood 3+ (Negative) H 05/24/23 13:57 Urine Nitrate Negative (Negative) 05/24/23 13:57 Urine Bilirubin Neg (Negative) 05/24/23 13:57 Urine Urobilinogen Norm mg/dL (Negative) 05/24/23 13:57 Ur Leukocyte Esterase Negative (Negative) 05/24/23 13:57 Urine RBC 15-25 /hpf (0-2) H 05/24/23 13:57 Urine WBC 0-4 /hpf (0-5) H 05/24/23 13:57 Ur Squamous Epith Cells 0-4 /hpf (0-5) H 05/24/23 13:57 Amorphous Sediment 2+ /hpf 05/24/23 13:57 Urine Bacteria Trace /hpf (NONE) 05/24/23 13:57 Urine Mucus 4+ /hpf 05/24/23 13:57 Discharge Plan Discharge Patient Disposition: Home Clinical Impression: Ureterolithiasis Condition: Stable Prescriptions: New ketorolac 10 mg tablet 10 mg PO Q8H PRN (Reason: pain) 5 Days Qty: 14 0RF No Action budesonide-formoterol [Symbicort] 80-4.5 mcg/actuation HFA aerosol inhaler 1 puff inhalation BID Qty: 10.2 4RF bupropion HCl 150 mg Tablet Sustained-Release 12 Hr 150 mg PO BID aspirin 81 mg Tablet,Delayed Release (Dr/Ec) 81 mg PO DAILY@0700 omeprazole 20 mg Capsule,Delayed Release(Dr/Ec) 20 mg PO DAILY@0700 rosuvastatin 40 mg Tablet 40 mg PO DAILY gabapentin 300 mg capsule 900 mg PO BID cyanocobalamin (vitamin B-12) [Vitamin B-12] 1,000 mcg Tablet 1,000 mcg PO DAILY lisinopril 20 mg Tablet 20 mg PO DAILY glimepiride 4 mg Tablet 2 mg PO QAM latanoprost 0.005 % Drops 1 drp OPHTHALMIC (EYE) DAILY metformin 1,000 mg Tablet 1,000 mg PO BID Vitamin C 500 mg Tablet,Chewable 1,000 mg PO DAILY cholecalciferol (vitamin D3) [Vitamin D3] 25 mcg (1,000 unit) Capsule 25 mcg PO DAILY clopidogrel 75 mg tablet 75 mg PO DAILY Qty: 30 0RF Discharge Orders: Discharge ED (Routine); Ordered 05/24/23 Ordered By: Sravan Villavicencio Patient Instructions: Kidney Stones Activity Restrictions/Additional Instructions: Please push plenty of fluids, please take your pain medicine as directed. Case management has been consulted to get you into a urologist. Please anticipate their call within the next several days if not feel free to call them. Coding Level of Care Code ED Supervisor Communications And Signals for Elinor Dominguez
[2023-05-24 13:58] LABS: Basophils # 0.1 10^3/uL (0.0-0.1); Basophils % 0.5 %; Eosinophils % 0.4 %; Hematocrit 43.7 % (37-53); Lymphocytes # 1.3 10^3/uL (0.8-4.8); Lymphocytes % 12.1 %; Mean Corpuscular HGB Conc 33.6 g/dL (30-55); Mean Corpuscular Hemoglobin 30.2 pg (27-33); Mean Corpuscular Volume 89.9 fl (82-101); Mean Platelet Volume 10.5 fL (7.4-10.4); Monocytes # 0.8 10^3/uL (0.2-0.9); Neutrophils # 8.78 10^3/uL (1.8-7.7); Neutrophils % 79.6 %; Nucleated Red Blood Cells % 0 %; Platelet Count 268 10^3/cmm (157-399); Red Blood Count 4.86 10^6/uL (3.85-5.65); Red Cell Distribution Width 13.8 % (12.1-15.1); White Blood Count 11.01 10^3/uL (3.29-11.43)
[2023-05-24 14:24] LABS: Lipase 25 U/L (13-60)
[2023-05-24 14:25] LABS: Alanine Aminotransferase 25 U/L (0-41); Albumin Level 4.6 g/dL (3.5-5.2); Alkaline Phosphatase 122 U/L (40-130); Anion Gap 15.3 (5-19); Aspartate Amino Transferase 17 U/L (0-40); Blood Urea Nitrogen 15 mg/dL (8-23); Calcium 9.4 mg/dL (8.5-10.5); Carbon Dioxide 25 mmol/L (22-29); Chloride 104 mmol/L (98-107); Globulin 2.5 g/dL (1.3-4.6); Glucose 121 mg/dL (65-115); Osmolality Calculated 292 mOsm/kg (285-295); Potassium 4.3 mmol/L (3.5-5.1); Sodium 140 mmol/L (136-145); Total Bilirubin 0.4 mg/dL (0.15-1.2); Total Protein 7.1 g/dL (6.6-8.7)
[2023-05-24 14:33] VITALS: O2SAT 98
[2023-05-24 15:07] LABS: Add Urine Microscopic? YES; Bilirubin Urine Neg (Negative); Blood Urine 3+ (Negative); Glucose Urine UA Norm (Normal); Ketones Urine 1+ (Negative); Leukocyte Esterase Urine Negative (Negative); Nitrate Urine Negative (Negative); Protein Urine Neg (Negative); Specific Gravity, Urine 1.025 (1.005-1.030); Urine Appearance Clear (CLEAR); Urine Color Yellow (Yellow); Urobilinogen Urine Norm (Negative); pH Urine 5 (5-7)
[2023-05-24 15:08] LABS: RBC Urine 15-25 /hpf (0-2); Squamous Epithelial Cell Urine 0-4 /hpf (0-5); WBC Urine 0-4 /hpf (0-5)
[2023-05-24 15:09] LABS: Add Urine Culture? Yes; Amorphous Sediment Urine 2+ /hpf; Bacteria Urine TRACE /hpf; Mucus Urine 4+ /hpf
--- NOTE | 2023-05-24 15:16 | CTR_ITS ---
PROCEDURE INFORMATION: Exam: CT Abdomen And Pelvis Without Contrast Exam date and time: 05/24/2023 3:35 PM Age: 72 years old Clinical indication: Abdominal pain; Flank; Right; Additional info: Right flank pain hematuria TECHNIQUE: Imaging protocol: Computed tomography of the abdomen and pelvis without contrast. Radiation optimization: All CT scans at this facility use at least one of these dose optimization techniques: automated exposure control; mA and/or kV adjustment per patient size (includes targeted exams where dose is matched to clinical indication); or iterative reconstruction. REPORTING DATA: Count of CT and Cardiac NM exams in prior 12 months: This patient has received 0 known CTs and 0 known cardiac nuclear medicine studies in the 12 months prior to the current study. COMPARISON: MR thoracic spin wo con* [id number] 09/06/2022 2:40 PM RADIATION DOSE METRICS: Total DLP (mGy-cm): 947.73 FINDINGS: Liver: Hepatic steatosis. No mass. Gallbladder and bile ducts: Normal. No calcified stones. No ductal dilation. Pancreas: Normal. No ductal dilation. Spleen: Normal. No splenomegaly. Adrenal glands: Normal. No mass. Kidneys and ureters: Obstructing 4 mm stone noted at the right UVJ with [id number] upstream hydroureteronephrosis. A few additional nonobstructing stones noted within the right kidney measuring up to 7 mm in size. There is also asymmetric perinephric fat stranding and edematous appearance of the right kidney. Stomach and bowel: Colonic diverticulosis. No obstruction. No mucosal thickening. Appendix: No evidence of appendicitis. Intraperitoneal space: Unremarkable. No free air. No significant fluid collection. Vasculature: Unremarkable. No abdominal aortic aneurysm. Lymph nodes: Unremarkable. No enlarged lymph nodes. Urinary bladder: Unremarkable as visualized. Reproductive: Unremarkable as visualized. Bones/joints: No acute fracture. There is heterogeneous appearance of the left ilium with areas of sclerotic and lucent change. Soft tissues: Unremarkable. CT/CT kidney stone [id number] IMPRESSION: 1. Obstructing 4 mm stone at the right UVJ with [id number] upstream hydroureteronephrosis. A few additional nonobstructing stones noted in the right kidney measuring up to 7 mm in size. 2. 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
[2023-05-24] MEDS: HYDROcodone-acetaminophen 5-325 mg Tablet 1 TAB PO (16:46)
--- NOTE | 2023-05-25 08:21 | DCPLANNER ---
power project manager had message to schedule a follow up appointment for patient with urology. power project manager spoke with patient to confirm where patient wanted the referral sent. Patient stated that he would like the referral sent to [facility] in [facility]. power project manager faxed patients information to the clinic, it will be reviewed, and clinic will call patient with appointment information.
== END 2023-05-24 16:48 | disposition home or self-care (01) ==
PROVIDERS: Emergency Provider Emergency Medicine
DX: N13.2 Hydronephrosis with renal and ureteral calculous obstruction (principal); Z79.82 Long term (current) use of aspirin; Z79.02 Long term (current) use of antithrombotics/antiplatelets; Z79.84 Long term (current) use of oral hypoglycemic drugs; E78.5 Hyperlipidemia, unspecified; E11.9 Type 2 diabetes mellitus without complications; Z87.891 Personal history of nicotine dependence
CPT/HCPCS: 36415; 74176; 80053; 81001; 83690; 85025; 87086; 99284

== ENCOUNTER 2023-06-05 07:16 | Outpatient (RCR) | payer OTHER, SELFPAY | END 2023-06-23 23:59 | disposition home or self-care (01) | LOC: SPT 07:16 | PROVIDERS: Visit Provider Family Medicine | DX: G60.9 Hereditary and idiopathic neuropathy, unspecified (principal) | CPT/HCPCS: 97110; 97112; 97162 ==

== ENCOUNTER 2023-06-14 11:19 | Outpatient (CLI) | payer OTHER, SELFPAY ==
--- NOTE | 2023-06-14 12:12 | MR_ITS ---
WS: [id number] MRI BRAIN WITHOUT CONTRAST HISTORY: NEW ONSET DEMENTIA/HX OF CVA COMPARISON: 06/06/2022 TECHNIQUE: Diffusion imaging, multiplanar T1, T2 and FLAIR imaging obtained. Normal diffusion sequence. No acute infarct. Very mild progression of small vessel ischemic changes i n the periventricular and subcortical white matter. No interval infarct. Reidentified is mild bilater al hippocampal formation atrophy. Mild small vessel ischemic disease is unchanged in the rubio. Mild volume loss and atrophy. Ventricles and extra-axial spaces are normal. No inferior displacement of cerebellar tonsils. The sella turcica and pituitary gland are unremarkabl e. Dural venous sinuses and kl[place] of [place] demonstrate no abnormality on this unenhanced studies. Paranasal sinuses: Clear. Mastoid air cells: Normal. Calvarium and scalp: Intact. IMPRESSION: 1. Normal diffusion sequence. No acute ischemic event. 2. Mild small vessel ischemic changes with mild parenchymal volume loss. Very mild progression since the prior examination of 06/06/2022. No change in the small vessel ischemic disease in the rubio. 3. Normal ventricles.
== END 2023-06-14 11:20 | disposition home or self-care (01) ==
LOC: RAD 11:23
PROVIDERS: PCP Family Medicine; Visit Provider Family Medicine
DX: F03.90 Unspecified dementia, unspecified severity, without behavioral disturbance, psychotic disturbance, mood disturbance, and anxiety (principal); J82.83 Eosinophilic asthma; G20 Parkinson's disease; Z87.891 Personal history of nicotine dependence; J30.81 Allergic rhinitis due to animal (cat) (dog) hair and dander; J30.1 Allergic rhinitis due to pollen; J30.89 Other allergic rhinitis
CPT/HCPCS: 70551; 99214

== ENCOUNTER 2023-06-24 06:00 | Outpatient (RCR) | payer OTHER, SELFPAY | END 2023-07-23 23:59 | disposition home or self-care (01) | LOC: SPT 06:00 | PROVIDERS: PCP Family Medicine; Visit Provider Family Medicine | DX: G60.9 Hereditary and idiopathic neuropathy, unspecified (principal); R26.89 Other abnormalities of gait and mobility; R29.6 Repeated falls | CPT/HCPCS: 97110; 97112 ==

== ENCOUNTER 2023-07-03 06:56 | Outpatient (CLI) | payer OTHER, SELFPAY ==
[2023-07-03 07:26] VITALS: PULSE 80; RESP 18; O2SAT 96
[2023-07-03 07:30] VITALS: PULSE 79
[2023-07-03] MEDS: albuterol 2.5 mg/3 mL Neb INHALATION (07:30)
== END 2023-07-03 06:57 | disposition home or self-care (01) ==
PROVIDERS: PCP Family Medicine; Visit Provider Internal Medicine Pulmonary Disease
DX: J84.10 Pulmonary fibrosis, unspecified (principal); R06.02 Shortness of breath
CPT/HCPCS: 94060; 94618; 94726; 94729; J7613

== ENCOUNTER → 2023-07-05 07:46 | Outpatient (BNVA) | payer OTHER, SELFPAY | PROVIDERS: PCP Family Medicine; Referring Provider Internal Medicine Pulmonary Disease; Visit Provider Psychiatry & Neurology Neurology | DX: G25.0 Essential tremor (principal); M48.061 Spinal stenosis, lumbar region without neurogenic claudication; R20.8 Other disturbances of skin sensation; R29.898 Other symptoms and signs involving the musculoskeletal system; R19.5 Other fecal abnormalities; R20.0 Anesthesia of skin; G20.A1 Parkinson's disease without dyskinesia, without mention of fluctuations | CPT/HCPCS: 99204 ==

== ENCOUNTER → 2023-07-11 10:51 | Outpatient (BNVA) | payer OTHER, SELFPAY | PROVIDERS: PCP Family Medicine; Visit Provider Psychiatry & Neurology Neurology | DX: G62.89 Other specified polyneuropathies (principal); G56.03 Carpal tunnel syndrome, bilateral upper limbs; G56.21 Lesion of ulnar nerve, right upper limb | CPT/HCPCS: 95910 ==

== ENCOUNTER 2023-08-13 11:29 | Emergency (ER) | payer OTHER, SELFPAY ==
[2023-08-13 11:33] VITALS: BP 145/77; PULSE 92; RESP 16; TEMP 36.5; O2SAT 95; BMI 33.2
[2023-08-13 11:52] VITALS: BP 145/77; PULSE 85; RESP 25; O2SAT 96
--- NOTE | 2023-08-13 11:56 | XR_ITS ---
WS: [id number] PORTABLE CHEST HISTORY: Chest pain COMPARISON: 02/09/2023 Lungs are clear and well expanded. No pleural effusion or pneumothorax. Cardiac size: Normal. Mediastinum/Aorta: Mild atherosclerosis aorta. No osseous abnormality seen. IMPRESSION: Unremarkable portable chest.
--- NOTE | 2023-08-13 11:56 | ECG_ITS ---
[facility] Test Date: 2023-08-13 Pat Name: Ramón Armando Department: Room: Gender: Male Icu Staff Nurse: : 1950 Requested By: Efren Garcia Order Number: [id number] Adwoa MD: Ignacio Vega M.D. Measurements Intervals [place] Rate: 85 P: 54 IL: 152 QRS: -23 QRSD: 82 T: 12 QT: 367 QTc: 437 Interpretive Statements SINUS RHYTHM LOW QRS VOLTAGE IN PRECORDIAL LEADS [QRS DEFLECTION < 1.0 mV IN CHEST LEADS] PATTERN CONSISTENT WITH PULMONARY DISEASE INFERIOR MYOCARDIAL INFARCTION , PROBABLY OLD [40+ ms Q WAVE AND/OR ST/T ABNORMALITY IN II/aVF] Compared to ECG 06/06/2022 15:14:48 No significant changes Electronically Signed On 08-13-2023 14:40:59 REGISTERED NURSE AMBULATORY by Ignacio Vega M.D. [id number]
--- NOTE | 2023-08-13 11:57 | ED_ITS ---
HPI - Syncope General: Chief Complaint: Syncope Stated Complaint: Syncope Time Seen by Provider: 08/13/23 11:35 History of Present Illness: 73-year-old male presents emerged department via EMS personnel after having 2 episodes where he almost passed out. He states he is a diabetic and his blood sugars when he checked them were 48. He states that he normally has difficulty when his blood sugar gets below 50 he states that he did not have any sugary snacks in the house at that time so he got in his car and drove to get some chocolate. He states he then ate some peanut butter cups and chocolate rechecked his sugar and it had come up slightly. He states that [facility] and [facility] advised him to come to the emergency department for additional evaluation treatment and care. The patient is at present awake alert and oriented x4 and in no acute distress. Review of Systems General: Reports: 10 or more systems reviewed and unremarkable except in HPI and below Const: Reports: fatigue and diaphoresis Card: Reports: pre-syncope [facility] ED PFSH: Medical History Anxiety Chronic back pain Hyperlipidemia Type 2 diabetes mellitus Surgical History History of cataract surgery History of nasal surgery Family History Other Cancer Dementia Stroke Social History Smoking and tobacco/nicotine status: former use of tobacco/nicotine Quit status (tobacco/nicotine): has quit using Year quit tobacco: 1979 Former quit date comment: 3 pps X 13 years Alcohol intake: former Substance/Drug Use: former Former substance use details: LSD Lives independently: Yes Household members: none Physical Exam Narrative: EXAM NARRATIVE: Constitutional: the patient appears well nourished and with normal development. Vital signs reviewed as documented. HENMT: Normocephalic, atraumatic. Extermal ears with normal appearance without drainage. Nose without drainage, normal appearance. Mucus membranes moist. Neck is supple, No jugular venous distension, trachea is midline, no appreciable carotid bruits. No lymphadenopathy. No meningeal signs. Flexion, extension and lateral rotation is without pain. Eyes: Pupils are equal, round, reactive to light and accommodation. No scleral icterus. Extra-ocular movement are intact. Thorax is symmetrical and with equal rise and fall with respirations. Resp: Lungs are clear to auscultation. No wheezes, rales, crackles or ronchi at present. Cardio: Regular rate and rhythm. Positive S1, S2. No appreciable murmurs, rubs or gallops. GI: Abdominal exam reveals normal bowel sounds to all quadrants. No organomegaly. No obvious palpable masses noted. No hepatomegally appreciated. Soft, nontender to palpation. Extremity: Extremities are non-edematous and both femoral and pedal pulses are 2+ and equal bilaterally. Moves all extremities well, sensation in all extremities. Neuro: Alert and oriented x4, person, place, time and situation. Cranial nerves II through XII are grossly intact, there is no focal neurological deficits that I can appreciate at present. Motor strength in the upper and lower extremities are equal and bilateral 5/5. Psych: Cooperative, calm, normal thought process, appropriate judgment. Skin: No lesions, rashes. No gross abnormalities noted. Back: Symmetrical, no obvious deformity, No CVA tenderness Course Vital Signs: Vital signs: Vital Signs Temperature 97.7 F 08/13/23 11:33 Pulse Rate 74 08/13/23 14:25 Respiratory Rate 28 H 08/13/23 14:25 Blood Pressure 169/83 08/13/23 13:04 Pulse Oximetry 96 08/13/23 14:25 Oxygen Delivery Me thod Room Air 08/13/23 11:52 MDM - Syncope Medical Decision Making Physical exam completed and documented, I will obtain EKGs cardiac enzymes chest x-ray as well as [id number] glucose I suspect most likely this is related to his hypoglycemia. I will obtain a CBC and CMP as well. Differential diagnosis includes hypoglycemia, electrolyte abnormality, sepsis, NSTEMI, Medical Records I reviewed the patient's medical records. Lab Data I reviewed the patient's lab results. 08/13/23 11:41 08/13/23 11:41 Laboratory Results WBC 6.69 10^3/uL (3.29-11.43) 08/13/23 11:41 RBC 4.73 10^6/uL (3.85-5.65) 08/13/23 11:41 Hgb 14.50 g/dL (11.27-16.99) 08/13/23 11:41 Hct 43.2 % (37-53) 08/13/23 11:41 MCV 91.3 fl (82-101) 08/13/23 11:41 MCH 30.7 pg (27-33) 08/13/23 11:41 MCHC 33.6 g/dL (30-55) 08/13/23 11:41 RDW 13.7 % (12.1-15.1) 08/13/23 11:41 Plt Count 301 10^3/cmm (157-399) 08/13/23 11:41 MPV 10.8 fL (7.4-10.4) H 08/13/23 11:41 Neut % (Auto) 62.2 % 08/13/23 11:41 Lymph % (Auto) 24.5 % 08/13/23 11:41 [place] % (Auto) 9.7 % 08/13/23 11:41 Eos % (Auto) 2.5 % 08/13/23 11:41 Baso % (Auto) 1.0 % 08/13/23 11:41 Neut # (Auto) 4.15 10^3/uL (1.8-7.7) 08/13/23 11:41 Lymph # (Auto) 1.6 10^3/uL (0.8-4.8) 08/13/23 11:41 [place] # (Auto) 0.7 10^3/uL (0.2-0.9) 08/13/23 11:41 Eos # (Auto) 0.2 10^3/uL (0.0-0.8) 08/13/23 11:41 Baso # (Auto) 0.1 10^3/uL (0.0-0.1) 08/13/23 11:41 Nucleated RBC % (auto) 0 % 08/13/23 11:41 Nucleated RBCs # 0.0 /100WBC 08/13/23 11:41 PT 13.20 SECONDS (12.1-14.9) 08/13/23 11:41 INR 0.97 (0.8-1.2) 08/13/23 11:41 APTT 27.2 SECONDS (23.9-36.7) 08/13/23 11:41 Sodium 143 mmol/L (136-145) 08/13/23 11:41 Potassium 4.2 mmol/L (3.5-5.1) 08/13/23 11:41 Chloride 106 mmol/L (98-107) 08/13/23 11:41 Carbon Dioxide 24 mmol/L (22-29) 08/13/23 11:41 Anion Gap 17.2 (5-19) 08/13/23 11:41 BUN 15 mg/dL (8-23) 08/13/23 11:41 Creatinine 1.0 mg/dL (0.7-1.2) 08/13/23 11:41 GFR Calculation Not Reportable 08/13/23 11:41 Glucose 112 mg/dL (65-115) 08/13/23 11:41 POC Glucose 160 mg/dL (70-110) H 08/13/23 12:01 Calculated Osmolality 298 mOsm/kg (285-295) H 08/13/23 11:41 Calcium 10.1 mg/dL (8.5-10.5) 08/13/23 11:41 Total Bilirubin 0.4 mg/dL (0.15-1.2) 08/13/23 11:41 AST 18 U/L (0-40) 08/13/23 11:41 ALT 22 U/L (0-41) 08/13/23 11:41 Alkaline Phosphatase 123 U/L (40-130) 08/13/23 11:41 Troponin T Baseline 10 ng/L (0-15) 08/13/23 11:41 NT-Pro-B Natriuret Pep 51 pg/mL (0-125) 08/13/23 11:41 Total Protein 6.8 g/dL (6.6-8.7) 08/13/23 11:41 Albumin 4.6 g/dL (3.5-5.2) 08/13/23 11:41 Globulin 2.2 g/dL (1.3-4.6) 08/13/23 11:41 All radiology interpretation(s) finalized by discharge ED provider radiology interpretation(s): FINDINGS: Lungs: Slight probable scarring left lung base. Otherwise, no new focal infiltrates seen of the lungs. Pulmonary vasculature appears within normal. Shallow inspiration with low lung volumes. Patient appears rotated slightly to the right. Pleural spaces: No large or obvious pneumothorax nor pleural effusion seen. Heart/Mediastinum: Heart size appears within normal. Vasculature: Atherosclerotic disease aorta. Bones/joints: Degenerative changes spine. IMPRESSION: Shallow inspiration with low lung volumes. No acute findings seen of the chest. Discharge Plan Discharge Patient Disposition: Home Clinical Impression: Pre-syncope, Hypoglycemia Condition: Stable Prescriptions: No Action bupropion HCl 150 mg Tablet Sustained-Release 12 Hr 150 mg PO BID aspirin 81 mg Tablet,Delayed Release (Dr/Ec) 81 mg PO DAILY@0700 omeprazole 20 mg Capsule,Delayed Release(Dr/Ec) 20 mg PO DAILY@0700 rosuvastatin 40 mg Tablet 40 mg PO QPM gabapentin 300 mg capsule 900 mg PO BID cyanocobalamin (vitamin B-12) [Vitamin B-12] 1,000 mcg Tablet 1,000 mcg PO DAILY latanoprost 0.005 % Drops 1 drp OPHTHALMIC (EYE) DAILY ascorbic acid (vitamin C) [Vitamin C] 500 mg Tablet,Chewable 1,000 mg PO DAILY cholecalciferol (vitamin D3) [Vitamin D3] 25 mcg (1,000 unit) Capsule 25 mcg PO DAILY clopidogrel 75 mg tablet 75 mg PO DAILY Qty: 30 0RF Discharge Orders: Discharge ED (Routine); Ordered 08/13/23 Ordered By: Efren Garcia Referrals: Lyndsay Topete MD [Primary Care Provider] - Discharge Diet: Advance as tolerated Discharge Activity: Resume usual activity Patient Instructions: Opioid Safety, Pain Management Coding Level of Care Code ED Accounting Advisory Services Manager for Elinor Dominguez
[2023-08-13 12:05] LABS: Glucose Point of Care 160 mg/dL (70-110)
[2023-08-13 12:06] LABS: Basophils # 0.1 10^3/uL (0.0-0.1); Eosinophils # 0.2 10^3/uL (0.0-0.8); Eosinophils % 2.5 %; Hematocrit 43.2 % (37-53); Lymphocytes # 1.6 10^3/uL (0.8-4.8); Lymphocytes % 24.5 %; Mean Corpuscular HGB Conc 33.6 g/dL (30-55); Mean Corpuscular Hemoglobin 30.7 pg (27-33); Mean Corpuscular Volume 91.3 fl (82-101); Mean Platelet Volume 10.8 fL (7.4-10.4); Monocytes # 0.7 10^3/uL (0.2-0.9); Monocytes % 9.7 %; Neutrophils # 4.15 10^3/uL (1.8-7.7); Neutrophils % 62.2 %; Nucleated Red Blood Cells % 0 %; Platelet Count 301 10^3/cmm (157-399); Red Blood Count 4.73 10^6/uL (3.85-5.65); Red Cell Distribution Width 13.7 % (12.1-15.1); White Blood Count 6.69 10^3/uL (3.29-11.43)
[2023-08-13 12:12] LABS: INR 0.97 (0.8-1.2); Partial Thromboplastin Time 27.2 SECONDS (23.9-36.7)
[2023-08-13 12:22] LABS: Troponin(5th) Baseline 10 ng/L (0-15)
[2023-08-13 12:28] LABS: Alanine Aminotransferase 22 U/L (0-41); Albumin Level 4.6 g/dL (3.5-5.2); Alkaline Phosphatase 123 U/L (40-130); Anion Gap 17.2 (5-19); Aspartate Amino Transferase 18 U/L (0-40); Blood Urea Nitrogen 15 mg/dL (8-23); Calcium 10.1 mg/dL (8.5-10.5); Carbon Dioxide 24 mmol/L (22-29); Chloride 106 mmol/L (98-107); Globulin 2.2 g/dL (1.3-4.6); Glucose 112 mg/dL (65-115); NT Pro B Type Natriuretic Pept 51 pg/mL (0-125); Osmolality Calculated 298 mOsm/kg (285-295); Potassium 4.2 mmol/L (3.5-5.1); Sodium 143 mmol/L (136-145); Total Bilirubin 0.4 mg/dL (0.15-1.2); Total Protein 6.8 g/dL (6.6-8.7)
[2023-08-13 12:50] VITALS: BP 122/69; PULSE 85; RESP 30; O2SAT 95
[2023-08-13 13:04] VITALS: BP 169/83; PULSE 75; RESP 30; O2SAT 94
--- NOTE | 2023-08-13 13:52 | ECG_ITS ---
[facility] Test Date: 2023-08-13 Pat Name: Ramón Armando Department: Room: Gender: Male Cardiograph Operator: : 1950 Requested By: Efren Garcia Order Number: [id number] Adwoa MD: Ignacio Vega M.D. Measurements Intervals [place] Rate: 75 P: 62 MN: 156 QRS: -20 QRSD: 84 T: 21 QT: 372 QTc: 418 Interpretive Statements SINUS RHYTHM LOW QRS VOLTAGE IN PRECORDIAL LEADS [QRS DEFLECTION < 1.0 mV IN CHEST LEADS] Compared to ECG 08/13/2023 11:58:30 Myocardial infarct finding no longer present Electronically Signed On 08-13-2023 14:50:34 DISHING MACHINE OPERATOR by Ignacio Vega M.D. [id number]
[2023-08-13 14:25] VITALS: PULSE 74; RESP 28; O2SAT 96
[2023-08-13 15:38] LABS: Troponin 5 2HR 7.95 ng/L (0-15); Troponin 5 2HR Delta -2.05 ABS# (0-10)
== END 2023-08-13 14:58 | disposition home or self-care (01) ==
PROVIDERS: Emergency Provider Internal Medicine; PCP Family Medicine
DX: R55 Syncope and collapse (principal); E11.649 Type 2 diabetes mellitus with hypoglycemia without coma; E78.5 Hyperlipidemia, unspecified; Z87.891 Personal history of nicotine dependence; Z79.82 Long term (current) use of aspirin; Z79.02 Long term (current) use of antithrombotics/antiplatelets
CPT/HCPCS: 36415; 36416; 71045; 80053; 82962; 83880; 84484; 85025; 85610; 85730; 93005; 93010; 99285

== ENCOUNTER → 2023-11-14 12:47 | Outpatient (BNVA) | payer OTHER, SELFPAY | PROVIDERS: PCP Family Medicine; Visit Provider Internal Medicine | DX: R42 Dizziness and giddiness (principal); E11.69 Type 2 diabetes mellitus with other specified complication; E78.5 Hyperlipidemia, unspecified; F41.9 Anxiety disorder, unspecified; Z87.891 Personal history of nicotine dependence | CPT/HCPCS: 99213 ==

== ENCOUNTER → 2023-12-13 10:49 | Outpatient (BNVA) | payer OTHER, SELFPAY | PROVIDERS: PCP Family Medicine; Visit Provider Internal Medicine Pulmonary Disease | DX: J82.83 Eosinophilic asthma (principal); G20.A1 Parkinson's disease without dyskinesia, without mention of fluctuations | CPT/HCPCS: 99214 ==

== ENCOUNTER 2024-02-13 09:20 | Outpatient (CLI) | payer OTHER, SELFPAY ==
--- NOTE | 2024-02-13 09:30 | MR_ITS ---
WS: [id number] MRI LUMBAR SPINE WITH CONTRAST TECHNIQUE: Sagittal T1, T2 and STIR imaging. Axial T1 and T2 imaging. Post gadolinium imaging was obt ained. CLINICAL INFORMATION: M48.00 - Spinal stenosis, site unspecified COMPARISON: MRI 2021 FINDINGS: Focal enhancing nodule along the dorsal L2-3 interspinous ligament appears new from the gio or MRI. This measures approximately 1.1 x 0.9 cm and likely involves the adjacent inferior L2 spinous process. This is indeterminant but a small soft tissue neoplasm or metastatic disease not excluded. This could be inflammatory but has a nodular appearance. Recommend correlation with clinical history and prior spine interventions. Mild lumbar curve. No acute compression. Disc bulging worse at L2-L3 L3-L4 and L4-L5. L1-L2: Mild facet arthropathy. Spinal canal and foramen are patent. L2-L3: Mild annular bulging. Slight narrowing of the subarticular recess bilaterally. Mild bilateral foraminal narrowing. L3-L4: Mild annular bulging. Severe central canal stenosis. Facet arthropathy ligamentum flavum hyper trophy. Mild bilateral foraminal narrowing. L4-L5: LEFT subarticular disc protrusion with tiny annular fissure impinges the traversing LEFT L5 ne rve root in the subarticular recess. Moderate facet arthropathy. Mild bilateral foraminal narrowing. L5-S1: Mild annular bulge with endplate ridging. Moderate facet arthropathy. Severe RIGHT and mild LE FT foraminal narrowing. This is unchanged from previous. Dilated RIGHT renal pelvis or peripelvic cyst unchanged. MR/MR lumbar spine wo/w con [id number] IMPRESSION: 1. Small intensely enhancing ovoid nodule involving the L2-3 interspinous liga ment dorsally measuring approximately 1.1 x 0.9 cm. This appears new from the p rior examination. This is indeterminate but small neoplasm or metastatic diseas e are considerations. This may be inflammatory but has a nodular appearance. Re commend correlation with spinal interventions or procedures. Otherwise recommen d 6 to 8-week interval follow-up to assess stability or change. 2. Severe central canal stenosis L3-4 unchanged from previous. 3. LEFT subarticular protrusion L4-5 impinges the LEFT subarticular recess and traversing LEFT L5 nerve root. This appears new from previous. Mild central ca nal stenosis at this level. 4. Slight retrolisthesis L2 on L3 with slight narrowing RIGHT subarticular rec ess unchanged. 5. Severe RIGHT L5-S1 bony foraminal narrowing. 6. Moderate facet arthropathy L3-L5.
[2024-02-13] MEDS: gadobenate dimeglumine 20 mL vial IV (10:08)
== END 2024-02-13 09:21 | disposition home or self-care (01) ==
LOC: RAD 09:20
PROVIDERS: PCP Family Medicine; Visit Provider Psychiatry & Neurology Neurology
DX: M48.061 Spinal stenosis, lumbar region without neurogenic claudication (principal); M51.26 Other intervertebral disc displacement, lumbar region; M43.16 Spondylolisthesis, lumbar region; M99.63 Osseous and subluxation stenosis of intervertebral foramina of lumbar region; M47.896 Other spondylosis, lumbar region
CPT/HCPCS: 72158; A9577

== ENCOUNTER 2024-02-26 14:01 | Outpatient (CLI) | payer OTHER, SELFPAY ==
--- NOTE | 2024-02-26 14:05 | CT_ITS ---
WS: [id number] CT ANGIOGRAM CEREBRAL AND CAROTID ARTERIES HISTORY: CVA ABNORMAL DOPPLER US TECHNIQUE: CT angiogram is performed of the carotid and cerebral arteries. During arterial injection imaging is obtained from the skull vertex to the aortic arch in 1.25 mm imaging. Coronal and sagittal reformats are submitted. Additional multi planar reformats of the carotid and cerebral arteries are submitted, MIP imaging also reviewed. NASCET criteria utilized. All CT scans at [facility] us e at least one of these dose optimization techniques: automated exposure control; mA and/or kV adjust ment per patient size (includes targeted exams where dose is matched to clinical indication); or iter ative reconstruction. CONTRAST: Omnipaque 350; 100 mL IV. DLP: 1290.44 mGy.cm COMPARISON: Carotid ultrasound 02/02/[address] head: No hemorrhage or edema. Mild atrophy and small vessel ischemic disease. Carotid Angiogram: Right carotid: Common carotid artery: Arises normally from the innominate artery. No significant plaque or stenosis. Mild carotid plaque. Internal carotid artery: Minimal plaque at the bifurcation. No stenosis. External carotid artery: Patent. Left carotid: Common carotid artery: Arises normally from the aorta. No significant plaque or stenosis. Internal carotid artery: Very mild atherosclerotic disease. No stenosis or dissection. External carotid artery: Patent. Right vertebral artery: Normal caliber. Increasing calcification at the foramen magnum. RIGHT vertebr al artery stenosis estimated at 50%. Left vertebral artery: Unremarkable. Arises normally from the subclavian artery. Small amount of plaq ue at the foramen magnum. Subclavian arteries: Small amount of plaque at the LEFT subclavian origin. Both subclavian arteries a re patent. Upper thorax: Mild atherosclerosis arch of the aorta. Thyroid gland: Normal. Osseous structures: Unremarkable. CEREBRAL ANGIOGRAM: Intracranial vertebral arteries: Distal to the foramen magnum vertebral arteries are normal caliber. Basilar artery: No significant stenosis or occlusion. No aneurysm. Intracranial Internal carotid arteries: Small amount of calcified plaque in the cavernous carotid art eries. No stenosis. Middle cerebral arteries: Normal. Anterior cerebral arteries and ACOM: Normal. Posterior cerebral arteries and PCOM's: Normal. Dural venous sinuses are normally enhancing. Mastoid air cells: Normal. Paranasal sinuses: Normal. Calvarium: Normal. CT/CT angio headneck* [id number] IMPRESSION: 1. No significant cervical carotid artery stenosis. Minimal plaque at the bifu rcations. 2. Small amount of intracranial plaque through the cavernous carotid arteries. No stenosis. 3. 50% stenosis distal RIGHT vertebral artery at the level of the foramen magn um. 4. No stenosis in the [place]. No aneurysm.
[2024-02-26] MEDS: iohexol 350 mg/mL 500 mL Btl (per mL) IV (14:57)
== END 2024-02-26 14:02 | disposition home or self-care (01) ==
LOC: RAD 14:01
PROVIDERS: Visit Provider Family Medicine
DX: I65.01 Occlusion and stenosis of right vertebral artery (principal)
CPT/HCPCS: 70496; 70498; Q9967

== ENCOUNTER → 2024-02-29 07:48 | Outpatient (BNVA) | payer OTHER, SELFPAY | PROVIDERS: Visit Provider Internal Medicine Pulmonary Disease | DX: J82.83 Eosinophilic asthma (principal); R19.5 Other fecal abnormalities; Z87.891 Personal history of nicotine dependence | CPT/HCPCS: 99214 ==

== ENCOUNTER 2024-03-04 10:17 | Outpatient (RCR) | payer OTHER, SELFPAY | END 2024-03-23 23:59 | disposition home or self-care (01) | LOC: SST 10:17 | PROVIDERS: PCP Family Medicine; Visit Provider Family Medicine | DX: I69.321 Dysphasia following cerebral infarction (principal) | CPT/HCPCS: 92507; 92523; 92610 ==

== ENCOUNTER 2024-03-24 06:00 | Outpatient (RCR) | payer OTHER, SELFPAY | END 2024-04-23 23:59 | disposition home or self-care (01) | LOC: SST 06:00 | PROVIDERS: PCP Family Medicine; Visit Provider Family Medicine | DX: I69.321 Dysphasia following cerebral infarction (principal) | CPT/HCPCS: 92507 ==

== ENCOUNTER 2024-04-24 06:00 | Outpatient (RCR) | payer OTHER, SELFPAY | END 2024-05-24 23:59 | disposition home or self-care (01) | LOC: SST 06:00 | PROVIDERS: PCP Family Medicine; Visit Provider Family Medicine | DX: I69.321 Dysphasia following cerebral infarction (principal) | CPT/HCPCS: 92507 ==

== ENCOUNTER → 2024-05-22 14:20 | Outpatient (BNVA) | payer OTHER, SELFPAY | PROVIDERS: PCP Family Medicine; Referring Provider Family Medicine; Visit Provider Dermatology | DX: L57.0 Actinic keratosis (principal); L30.9 Dermatitis, unspecified; L81.4 Other melanin hyperpigmentation; L82.1 Other seborrheic keratosis; D18.01 Hemangioma of skin and subcutaneous tissue; L57.8 Other skin changes due to chronic exposure to nonionizing radiation | CPT/HCPCS: 11102; 99204 ==

== ENCOUNTER 2024-05-25 06:30 | Outpatient (RCR) | payer OTHER, SELFPAY | END 2024-06-23 23:59 | disposition home or self-care (01) | LOC: SST 06:30 | PROVIDERS: PCP Family Medicine; Visit Provider Family Medicine | DX: I69.321 Dysphasia following cerebral infarction (principal) | CPT/HCPCS: 92507 ==

== ENCOUNTER → 2024-06-17 09:40 | Outpatient (BNVA) | payer OTHER, SELFPAY | PROVIDERS: PCP Family Medicine; Visit Provider Psychiatry & Neurology Neurology | DX: G56.21 Lesion of ulnar nerve, right upper limb (principal); G56.03 Carpal tunnel syndrome, bilateral upper limbs; G25.0 Essential tremor; M48.061 Spinal stenosis, lumbar region without neurogenic claudication; R29.898 Other symptoms and signs involving the musculoskeletal system; R20.0 Anesthesia of skin; G20.A1 Parkinson's disease without dyskinesia, without mention of fluctuations | CPT/HCPCS: 99212 ==

== ENCOUNTER → 2024-07-24 08:22 | Outpatient (BNVA) | payer OTHER, SELFPAY | PROVIDERS: PCP Family Medicine; Visit Provider Student in an Organized Health Care Education/Training Program | DX: G56.03 Carpal tunnel syndrome, bilateral upper limbs (principal) | CPT/HCPCS: 73130; 99204 ==

== ENCOUNTER → 2024-08-07 13:53 | Outpatient (BNVA) | payer OTHER, SELFPAY | PROVIDERS: PCP Family Medicine; Referring Provider Family Medicine; Visit Provider Student in an Organized Health Care Education/Training Program | DX: K92.1 Melena | CPT/HCPCS: 99204 ==

== ENCOUNTER 2024-08-28 06:17 | Day surgery (SDC) | payer OTHER, SELFPAY ==
[2024-08-28 06:34] VITALS: BP 138/86; PULSE 83; RESP 18; TEMP 36.4; O2SAT 97
[2024-08-28 06:47] VITALS: BMI 32.4
--- NOTE | 2024-08-28 07:02 | W.PM.OPSFHP ---
Same Day Surgery H&P Indication for Procedure/HPI DATE OF PROCEDURE: August 28, 2024 CHIEF COMPLAINT/INDICATIONFOR SURGICAL PROCEDURE: Right carpal tunnel syndrome PREOP DIAGNOSIS: Right carpal tunnel syndrome PLANNED PROCEDURE: Operation Date: 08/28/24 08:00 Proposed Procedures p Carpal Tunnel Release(Right) - Perry Moulton DO Medications/Allergies* Home Medications Medication Instructions Recorded Confirmed Type aspirin 81 mg tablet,delayed 81 mg PO DAILY@0700 03/23/21 08/27/24 History release bupropion HCl 150 mg tablet,12 hr 150 mg PO BID 03/23/21 08/27/24 History sustained-release omeprazole 20 mg capsule,delayed 20 mg PO DAILY@0700 03/23/21 08/27/24 History release rosuvastatin 40 mg tablet 40 mg PO QPM 03/23/21 08/27/24 History cholecalciferol (vitamin D3) 25 25 mcg PO DAILY 03/27/22 08/27/24 History mcg (1,000 unit) capsule (Vitamin D3) cyanocobalamin (vitamin B-12) 1,000 mcg PO DAILY 06/06/22 08/27/24 History 1,000 mcg tablet (Vitamin B-12) gabapentin 300 mg capsule 900 mg PO BID 06/06/22 08/27/24 History ascorbic acid (vitamin C) 500 mg 1,000 mg PO DAILY 05/24/23 08/27/24 History chewable tablet (Vitamin C) latanoprost 0.005 % eye drops 1 drp ophthalmic (eye) DAILY 05/24/23 08/27/24 History donepezil 10 mg tablet 10 mg PO DAILY 08/07/24 08/27/24 History glimepiride 1 mg tablet 1 mg PO DAILY 08/07/24 08/27/24 History lisinopril 20 mg tablet 20 mg PO DAILY 08/07/24 08/27/24 History metformin 1,000 mg tablet 1,000 mg PO BID 08/07/24 08/27/24 History Allergies/Adverse Reactions Allergy/AdvReac Type Severity Reaction Status Date / Time Penicillins Allergy Unconscious Verified 08/28/24 06:27 Pertinent History/Comorbid Conditions* Medical History (Updated 02/29/24 @ 08:48 by Benjy Phelps MD) Chronic back pain Hyperlipidemia Anxiety Type 2 diabetes mellitus Surgical History (Updated 03/23/21 @ 11:10 by Juan Panchal MD) History of nasal surgery History of cataract surgery Family History (Updated 03/23/21 @ 11:11 by Juan Panchal MD) Dementia Cancer Stroke Social History Smoking and tobacco/nicotine status: former use of tobacco/nicotine Quit status (tobacco/nicotine): has quit using Year quit tobacco: 1979 Former quit date comment: 3 pps X 13 years Alcohol intake: former Substance/Drug Use: former Former substance use details: LSD Lives independently: Yes Household members: none Pertinent Exam Findings alert, oriented x 3, operative site marked and procedure specific exam findings Please refer to detailed orthopedic examination on 07/24/2024 listed below: Bilateral upper extremity exam: Normal C-spine ROM, No pain. Negative Spurling's Negative Tinel's @ shoulders. Normal ROM Negative Tinel's @ elbows. Normal ROM Positive median compression test, bilaterally Positive Tinel's, bilaterally Positive Phalen's, bilaterally. Thenar weakness, bilaterally. Subtle atrophy noted No Intrinsic atrophy noted bilaterally. Negative CMC grind test Recommendations Surgery/Procedure today Other Plans: Plan to proceed to the OR today for right carpal tunnel release. Patient understands the ins and outs procedure the risk benefits complication alternatives with surgery and through shared decision-making elects proceed with surgical intervention. All questions answered at this time. Coding Level of Care Code Acute Code for Elinor Dominguez
[2024-08-28] MEDS: acetaminophen 1,000 MG/100 ML PIGGYBACK 400 MG IV (07:04)
[2024-08-28] MEDS: sodium chloride 0.9% 1,000 ML 30 ML IV (07:04)
[2024-08-28 07:09] LABS: Glucose Point of Care 190 mg/dL (70-110)
[2024-08-28] MEDS: ketorolac 30 mg/mL INJ IVP (07:09)
--- NOTE | 2024-08-28 07:19 | ANES.PREANE2 ---
Pre-Anesthetic Assessment Height/Weight: Height 5 ft 7 in Weight 207 lb Temp Pulse Resp BP Pulse Ox O2 Del Method 97.6 F 83 18 138/86 97 Room Air 08/28/24 06:34 08/28/24 06:34 08/28/24 06:34 08/28/24 06:34 08/28/24 06:34 08/28/24 06:50 Preop Diagnosis: Right carpal tunnel syndrome Operation Date: 08/28/24 08:00 Proposed Procedures p Carpal Tunnel Release(Right) - Perry Moulton, DO Was Beta Ryan taken within 24 hours: N/A Was Clonidine taken within 24 hours: N/A Last intake: Intake Last Liquid Date 08/27/24 Last Liquid Time 16:30 Last Solid Date 08/27/24 Last Solid Time 16:30 Social No alcohol and No tobacco Exam alert, oriented x 3, clear to auscultation bilaterally and regular rate & rhythm Airway Submandibular: within normal limits Cervical ROM: within normal limits Mallampati: Class II Dentition: full Comments: Comments: Multiple missing bottom teeth, denies any loose. Large bautista Anesthetic Plan ASA status: 3 Anesthesia: MAC Other: No prior issues with anesthesia in the past NPO since yesterday Type 2 diabetes, no insulin use On chronic Plavix for prior CVA. Patient states that he had a TIA 1 week ago, self diagnosed. Symptoms at the time were feeling groggy. Currently feels well Plavix taken 08/18/2024 Hypertension on lisinopril Previous echo showing EF 55 to 60% METs greater than 4 Plan for MAC anesthetic with local via surgeon Medications/Allergies Home Medications Medication Instructions Recorded Confirmed Last Taken Type aspirin 81 mg tablet,delayed 81 mg PO DAILY@0700 03/23/21 08/27/24 08/18/24 History release bupropion HCl 150 mg tablet,12 hr 150 mg PO BID 03/23/21 08/27/24 08/27/24 History sustained-release omeprazole 20 mg capsule,delayed 20 mg PO DAILY@0700 03/23/21 08/27/24 08/27/24 History release rosuvastatin 40 mg tablet 40 mg PO QPM 03/23/21 08/27/24 08/27/24 History cholecalciferol (vitamin D3) 25 25 mcg PO DAILY 03/27/22 08/27/24 08/27/24 History mcg (1,000 unit) capsule (Vitamin D3) clopidogrel 75 mg tablet 75 mg PO DAILY #30 tabs 03/27/22 08/27/24 08/18/24 Rx cyanocobalamin (vitamin B-12) 1,000 mcg PO DAILY 06/06/22 08/27/24 08/27/24 History 1,000 mcg tablet (Vitamin B-12) gabapentin 300 mg capsule 900 mg PO BID 06/06/22 08/27/24 08/27/24 History ascorbic acid (vitamin C) 500 mg 1,000 mg PO DAILY 05/24/23 08/27/24 08/27/24 History chewable tablet (Vitamin C) latanoprost 0.005 % eye drops 1 drp ophthalmic (eye) DAILY 05/24/23 08/27/24 08/27/24 History fluticasone 250 mcg-salmeterol 50 1 inh inhalation BID #60 ea 02/29/24 08/27/24 08/27/24 Rx mcg/dose blistr powdr for inhalation (Wixela Inhub) donepezil 10 mg tablet 10 mg PO DAILY 08/07/24 08/27/24 08/27/24 History glimepiride 1 mg tablet 1 mg PO DAILY 08/07/24 08/27/24 08/27/24 History lisinopril 20 mg tablet 20 mg PO DAILY 08/07/24 08/27/24 08/27/24 History metformin 1,000 mg tablet 1,000 mg PO BID 08/07/24 08/27/24 08/27/24 History tramadol 50 mg tablet 50 mg PO Q6H PRN pain 5 days #20 08/28/24 Unknown Rx tabs Allergies Allergy/AdvReac Type Severity Reaction Status Date / Time Penicillins Allergy Unconscious Verified 08/28/24 06:27 [facility] Anesthesia Medical History Chronic back pain Hyperlipidemia Anxiety Type 2 diabetes mellitus Surgical History (Updated 08/07/24 @ 14:13 by ANA Martino) History of nasal surgery History of cataract surgery Family History Other Cancer Dementia Stroke Social History Smoking and tobacco/nicotine status: former use of tobacco/nicotine Quit status (tobacco/nicotine): has quit using Year quit tobacco: 1979 Former quit date comment: 3 pps X 13 years Alcohol intake: former Substance/Drug Use: former Former substance use details: LSD Lives independently: Yes Household members: none Data Anesthesia Cardiac Studies: Echocardiogram 06/07/22 Sestamibi Stress Test (Cardiology) 03/23/21 Cardiac Event Monitor 08/16/22
[2024-08-28] MEDS: clindamycin 900 MG/50 ML PREMIX 100 MG IV (07:51)
[2024-08-28] MEDS: ROPivacaine 0.5% SDV 30 mL 25 MG INJECTION (08:26)
[2024-08-28] MEDS: lidocaine-epi 1% 20 mL INJ 5 ML INJECTION (08:26)
--- NOTE | 2024-08-28 08:28 | W.PM.BPON ---
Date of Procedure: 08/28/2024 Surgeon: Perry Moulton DO Tire Maintenance Technician(s): None Procedure(s) performed: Right carpal tunnel release Findings of the procedure(s): Right carpal tunnel syndrome underwent procedure as planned without issues or complications Estimated blood loss: 2 mL Specimen(s) removed: None Post-operative diagnosis: Right carpal tunnel syndrome
--- NOTE | 2024-08-28 08:29 | P.OP_ITS ---
Operative Report Date of procedure: August 28, 2024 Surgeon: Perry Moulton DO Procedure: Preop Diagnosis: Right Carpal Tunnel Syndrome Post-op diagnosis: Same Procedure done: 1. Right carpal tunnel release Surgeon: Perry Moulton DO Anesthesia: MAC (Local) Estimated blood loss: 2 mL Tourniquet time 9 minutes IV fluids: See anesthesia record Complications: None Findings: See operative report narrative Condition: stable Disposition: same day Brief History: Patient is a pleasant 74 year-old male with right carpal tunnel syndrome. Patient has been worked up in the outpatient setting findings and physical exami nation consistent with this. Patient nerve conduction studies consistent with carpal tunnel syndrome. We detailed out patient's risk benefits complication alternatives with surgical and nonsurgical treatment options. Through shared decision making, patient agrees to proceed with surgical intervention of the right carpal tunnel release . Patient understands and agrees with current plan. All questions answered. Patient elects to proceed with surgical intervention with carpal tunnel release. Procedure: Patient seen and evaluated in the preoperative holding area. Consent was reviewed and signed with patient. Correct extremity was marked. Patient was seen evaluated by the anesthesia department once cleared for surgery was brought back to the operative suite. Patient was kept on [facility] in supine position all bony prominences were well-padded patient properly secured to the bed. Right upper extremity was then placed onto an armboard. A nonsterile tourniquet was applied to the RIght upper arm. Patient underwent anesthesia per the anesthesia department. Patient's Right upper extremity was then prepped and draped in standard orthopedic fashion. Final timeout performed. Patient received appropriate preoperative antibiotics. Under sterile aseptic technique patient received local anesthesia over the preplanned carpal tunnel incision site. Esmarch was used to exsanguinate the Right upper extremity and tourniquet was insufflated to 250 mmHg. A standard mini open Right carpal tunnel incision was made. Starting distally at Mariano's cardinal line in line with the fourth ray extending proximally distal to the wrist crease centered over the carpal tunnel. Sharp scalpel incision was made through skin and subcutaneous tissue. Self-retaining retractor was placed and the palmar fascia was identified. This was then split longitudinally and direct visualization of the transverse carpal ligament was then made. I then utilizing scalpel feathered through the transverse carpal ligament until I entered the floor of the transverse carpal tunnel ligament into the carpal tunnel. Next I switched to dissection scissors and completed my release of the transverse carpal ligament distally with care to protect the recurrent motor branch. I completely released into the palmar fat and until no entrapment was noted distally. Care was made to protect the superficial palmar arch during my distal dissection. Next I utilized a nasal speculum placed on top of the transverse carpal ligament and utilize this to retract the subcutaneous fat and tissue and under direct loupe magnification was able to identify the transverse carpal ligament. Next I then protected the contents of the carpal tunnel and subsequently utilizing dissection scissors under loupe magnification completely released the transverse carpal ligament proximally into the antebrachial fascia. Care was made to protect the palmar cutaneous branch by keeping my scissors curved ulnarly. Once completely released, I then placed my [place] and had appropriate decompression of the carpal tunnel proximally as well as distally. I then inspected the contents of the carpal tunnel which showed an hourglass shape of the median nerve showing its compression. No masses were noted. Tendons appeared healthy. Wound was then thoroughly irrigated. Tourniquet deflated. Hemostasis satisfactory with bipolar electrocautery. I then closed the incision with interrupted nylon stitches. Xeroform 4 x 4's and a bulky soft dressing was applied. Patient was then awakened from anesthesia and taken to PACU in stable condition. Patient tolerated procedure without complications. Disposition: Patient taken to PACU in stable condition recovering well. Dressing clean dry and intact. Patient will receive appropriate discharge instructions as well as pain medication postoperatively. Patient to follow-up with me in the office in 2 weeks. They understand they may be weightbearing as tolerated to the right hand. Patient should keep incision clean dry and intact. Patient understands if any questions or concerns may contact the office.
[2024-08-28 08:37] VITALS: BP 91/64; PULSE 75; RESP 15; TEMP 36.3; O2SAT 95
[2024-08-28 08:45] VITALS: BP 115/66; PULSE 73; RESP 15; O2SAT 96
[2024-08-28 08:50] VITALS: BP 120/76; PULSE 74; RESP 16; O2SAT 95
[2024-08-28 09:00] VITALS: BP 141/89; PULSE 95; RESP 16; TEMP 36.3; O2SAT 95
[2024-08-28 09:38] VITALS: BP 136/82; PULSE 94; RESP 15; TEMP 36.3; O2SAT 96
--- NOTE | 2024-08-28 09:48 | ANE.PACU2 ---
Inpatient post-anesthesia follow up: Airway intact: Yes Vital signs: Temperature 97.3 F Pulse Rate 94 Respiratory Rate 15 Blood Pressure 136/82 Pulse Oximetry 96 Oxygen Delivery Me thod Room Air Oxygen Flow Rate 2 Fraction of Inspir ed Oxygen Hydration adequate: Yes Nausea and vomiting: No Pain level: 1 Mental status: Baseline
== END 2024-08-28 09:48 | disposition home or self-care (01) ==
PROVIDERS: PCP Family Medicine; Visit Provider Student in an Organized Health Care Education/Training Program
PROC: (CPT 64721; principal; 2024-08-28 08:00)
DX: G56.01 Carpal tunnel syndrome, right upper limb (principal); E11.9 Type 2 diabetes mellitus without complications; Z79.02 Long term (current) use of antithrombotics/antiplatelets; Z86.73 Personal history of transient ischemic attack (TIA), and cerebral infarction without residual deficits; I10 Essential (primary) hypertension; Z79.82 Long term (current) use of aspirin; E78.5 Hyperlipidemia, unspecified; F41.9 Anxiety disorder, unspecified; Z87.891 Personal history of nicotine dependence
CPT/HCPCS: 64721; 36416; 82962; J0131; J1885; J2704; J2795; J3010; J3490; J7030

== ENCOUNTER → 2024-09-11 08:56 | Outpatient (BNVA) | payer OTHER, SELFPAY | PROVIDERS: PCP Family Medicine; Visit Provider Physician Assistant | DX: Z98.890 Other specified postprocedural states (principal) | CPT/HCPCS: 99024 ==

== ENCOUNTER 2024-09-18 06:26 | Day surgery (SDC) | payer OTHER, SELFPAY ==
[2024-09-18 06:40] VITALS: BP 133/96; PULSE 86; RESP 18; TEMP 36.1; O2SAT 96
[2024-09-18] MEDS: sodium chloride 0.9% 500 ML 15 ML IV (06:47)
[2024-09-18 06:55] LABS: Glucose Point of Care 157 mg/dL (70-110)
--- NOTE | 2024-09-18 06:58 | ANES.PREANE2 ---
Pre-Anesthetic Assessment Height/Weight: Height 5 ft 7 in Weight 206 lb Temp Pulse Resp BP Pulse Ox O2 Del Method 97 F L 86 18 133/96 96 Room Air 09/18/24 06:40 09/18/24 06:40 09/18/24 06:40 09/18/24 06:40 09/18/24 06:40 09/18/24 06:40 Preop Diagnosis: Requesting screening colonoscopy Operation Date: 09/18/24 07:30 Proposed Procedures p Colonoscopy 78598, G0105, R19.7, K92.1(Not Applicable) - Isaias Rollins MD Was Beta Ryan taken within 24 hours: N/A Was Clonidine taken within 24 hours: N/A Last intake: Intake Last Liquid Date 09/17/24 Last Liquid Time 20:00 Last Solid Date 09/16/24 Last Solid Time 16:00 Social No alcohol and No tobacco Exam alert, oriented x 3, clear to auscultation bilaterally and regular rate & rhythm Airway Submandibular: within normal limits Cervical ROM: within normal limits Mallampati: Class II Dentition: full Comments: Comments: Multiple missing teeth, denies any loose Anesthetic Plan ASA status: 3 Anesthesia: MAC Other: No prior issues with anesthesia Completed bowel prep History of hypertension on lisinopril CVA history, multiple TIAs. Most recent 4-6 months ago. On chronic Plavix. Last taken 09/16/2024 Type 2 diabetes, no home insulin. Preop BS 157 METs greater than 4 Plan for MAC anesthetic Medications/Allergies Home Medications Medication Instructions Recorded Confirmed Last Taken Type aspirin 81 mg tablet,delayed 81 mg PO DAILY@0700 03/23/21 09/18/24 09/17/24 History release bupropion HCl 150 mg tablet,12 hr 150 mg PO BID 03/23/21 09/18/24 09/17/24 History sustained-release omeprazole 20 mg capsule,delayed 20 mg PO DAILY@0700 03/23/21 09/18/24 09/17/24 History release rosuvastatin 40 mg tablet 40 mg PO QPM 03/23/21 09/18/24 09/17/24 History cholecalciferol (vitamin D3) 25 25 mcg PO DAILY 03/27/22 09/18/24 09/17/24 History mcg (1,000 unit) capsule (Vitamin D3) clopidogrel 75 mg tablet 75 mg PO DAILY #30 tabs 03/27/22 09/18/24 09/16/24 Rx cyanocobalamin (vitamin B-12) 1,000 mcg PO DAILY 06/06/22 09/18/24 09/17/24 History 1,000 mcg tablet (Vitamin B-12) gabapentin 300 mg capsule 900 mg PO BID 06/06/22 09/18/24 09/17/24 History ascorbic acid (vitamin C) 500 mg 1,000 mg PO DAILY 05/24/23 09/18/24 09/17/24 History chewable tablet (Vitamin C) latanoprost 0.005 % eye drops 1 drp ophthalmic (eye) DAILY 05/24/23 09/18/24 09/17/24 History fluticasone 250 mcg-salmeterol 50 1 inh inhalation BID #60 ea 02/29/24 09/18/24 08/27/24 Rx mcg/dose blistr powdr for inhalation (Wixela Inhub) donepezil 10 mg tablet 10 mg PO DAILY 08/07/24 09/18/24 09/17/24 History glimepiride 1 mg tablet 1 mg PO DAILY 08/07/24 09/18/24 09/17/24 History lisinopril 20 mg tablet 20 mg PO DAILY 08/07/24 09/18/24 09/17/24 History metformin 1,000 mg tablet 1,000 mg PO BID 08/07/24 09/18/24 09/17/24 History omega-3 fatty acids 1,000 mg PO DAILY 09/15/24 09/18/24 09/17/24 History Allergies Allergy/AdvReac Type Severity Reaction Status Date / Time Penicillins Allergy Unconscious Verified 09/15/24 08:29 Current Medications Generic Name Dose Route Start Last Admin Trade Name Freq PRN Reason Stop Dose Admin Sodium Chloride 500 mls @ 15 mls/hr 09/18/24 06:27 09/18/24 06:47 Sodium Chloride 0.9% IV 09/19/24 06:26 15 mls/hr .Q24H PRN Administration COLONOSCOPY FLUIDS PFSH Anesthesia Medical History Chronic back pain Hyperlipidemia Anxiety Type 2 diabetes mellitus Surgical History History of nasal surgery History of cataract surgery Family History Other Cancer Dementia Stroke Social History Smoking and tobacco/nicotine status: former use of tobacco/nicotine Quit status (tobacco/nicotine): has quit using Year quit tobacco: 1979 Former quit date comment: 3 pps X 13 years Alcohol intake: former Substance/Drug Use: former Former substance use details: LSD Lives independently: Yes Household members: none Data Anesthesia Cardiac Studies: Echocardiogram 06/07/22 Sestamibi Stress Test (Cardiology) 03/23/21 Cardiac Event Monitor 08/16/22
--- NOTE | 2024-09-18 07:01 | W.PM.OPSFHP ---
Same Day Surgery H&P Indication for Procedure/HPI DATE OF PROCEDURE: September 18, 2024 CHIEF COMPLAINT/INDICATIONFOR SURGICAL PROCEDURE: diagnostic colonoscopy PREOP DIAGNOSIS: diagnostic colonoscopy PLANNED PROCEDURE: Operation Date: 09/18/24 07:30 Proposed Procedures p Colonoscopy 36819, G0105, R19.7, K92.1(Not Applicable) - Isaias Rollins MD Medications/Allergies* Home Medications Medication Instructions Recorded Confirmed Type aspirin 81 mg tablet,delayed 81 mg PO DAILY@0700 03/23/21 09/18/24 History release bupropion HCl 150 mg tablet,12 hr 150 mg PO BID 03/23/21 09/18/24 History sustained-release omeprazole 20 mg capsule,delayed 20 mg PO DAILY@0700 03/23/21 09/18/24 History release rosuvastatin 40 mg tablet 40 mg PO QPM 03/23/21 09/18/24 History cholecalciferol (vitamin D3) 25 25 mcg PO DAILY 03/27/22 09/18/24 History mcg (1,000 unit) capsule (Vitamin D3) cyanocobalamin (vitamin B-12) 1,000 mcg PO DAILY 06/06/22 09/18/24 History 1,000 mcg tablet (Vitamin B-12) gabapentin 300 mg capsule 900 mg PO BID 06/06/22 09/18/24 History ascorbic acid (vitamin C) 500 mg 1,000 mg PO DAILY 05/24/23 09/18/24 History chewable tablet (Vitamin C) latanoprost 0.005 % eye drops 1 drp ophthalmic (eye) DAILY 05/24/23 09/18/24 History donepezil 10 mg tablet 10 mg PO DAILY 08/07/24 09/18/24 History glimepiride 1 mg tablet 1 mg PO DAILY 08/07/24 09/18/24 History lisinopril 20 mg tablet 20 mg PO DAILY 08/07/24 09/18/24 History metformin 1,000 mg tablet 1,000 mg PO BID 08/07/24 09/18/24 History omega-3 fatty acids 1,000 mg PO DAILY 09/15/24 09/18/24 History Allergies/Adverse Reactions Allergy/AdvReac Type Severity Reaction Status Date / Time Penicillins Allergy Unconscious Verified 09/15/24 08:29 Current Medications: Generic Name Dose Route Start Last Admin Trade Name Freq PRN Reason Stop Dose Admin Sodium Chloride 500 mls @ 15 mls/hr 09/18/24 06:27 12 06:47 Sodium Chloride 0.9% IV 09/19/24 06:26 15 mls/hr .Q24H PRN Administration COLONOSCOPY FLUIDS Pertinent History/Comorbid Conditions* Medical History (Updated 02/29/24 @ 08:48 by Benjy Phelps MD) Chronic back pain Hyperlipidemia Anxiety Type 2 diabetes mellitus Surgical History (Updated 09/12/24 @ 11:14 by OLLIE Agustin) History of nasal surgery History of cataract surgery Family History (Updated 03/23/21 @ 11:11 by Juan Panchal MD) Dementia Cancer Stroke Social History Smoking and tobacco/nicotine status: former use of tobacco/nicotine Quit status (tobacco/nicotine): has quit using Year quit tobacco: 1979 Former quit date comment: 3 pps X 13 years Alcohol intake: former Substance/Drug Use: former Former substance use details: LSD Lives independently: Yes Household members: none Pertinent Exam Findings alert, oriented x 3, clear to auscultation bilaterally, regular rate & rhythm and procedure specific exam findings Abdomen soft, nt, nd Recommendations Surgery/Procedure today Coding Level of Care Code Acute Code for Chg Fwd
[2024-09-18 07:52] VITALS: BP 132/81; PULSE 71; RESP 14; TEMP 36.1; O2SAT 97
[2024-09-18 08:04] VITALS: BP 129/76; PULSE 87; RESP 16; O2SAT 95
--- NOTE | 2024-09-18 08:28 | ANE.PACU2 ---
Inpatient post-anesthesia follow up: Airway intact: Yes Vital signs: Temperature 97.0 F Pulse Rate 87 Respiratory Rate 16 Blood Pressure 129/76 Pulse Oximetry 95 Oxygen Delivery Me thod Room Air Oxygen Flow Rate Fraction of Inspir ed Oxygen Hydration adequate: Yes Nausea and vomiting: No Pain level: 1 Mental status: Baseline
== END 2024-09-18 08:28 | disposition home or self-care (01) ==
PROVIDERS: PCP Family Medicine; Visit Provider Student in an Organized Health Care Education/Training Program
PROC: 0DJD8ZZ Inspection of Lower Intestinal Tract, Via Natural or Artificial Opening Endoscopic (ICD-10-PCS; CPT 45378; principal; 2024-09-18 07:30)
DX: K92.1 Melena (principal); K57.30 Diverticulosis of large intestine without perforation or abscess without bleeding; K52.9 Noninfective gastroenteritis and colitis, unspecified; D12.4 Benign neoplasm of descending colon; I10 Essential (primary) hypertension; Z86.73 Personal history of transient ischemic attack (TIA), and cerebral infarction without residual deficits; E11.9 Type 2 diabetes mellitus without complications; Z79.82 Long term (current) use of aspirin; Z87.891 Personal history of nicotine dependence
CPT/HCPCS: 36416; 45385; 82962; 88305; J2704; J7040

== ENCOUNTER → 2024-09-29 13:04 | Outpatient (BNVA) | payer OTHER, SELFPAY | PROVIDERS: PCP Family Medicine; Visit Provider Student in an Organized Health Care Education/Training Program | DX: Z09 Encounter for follow-up examination after completed treatment for conditions other than malignant neoplasm (principal) | CPT/HCPCS: 99213 ==

== ENCOUNTER → 2024-10-02 09:20 | Outpatient (BNVA) | payer OTHER, SELFPAY | PROVIDERS: PCP Family Medicine; Visit Provider Physician Assistant | DX: Z98.890 Other specified postprocedural states (principal) | CPT/HCPCS: 99024 ==

== ENCOUNTER 2024-10-10 09:39 | Outpatient (RCR) | payer OTHER, SELFPAY | END 2024-10-24 23:59 | disposition home or self-care (01) | LOC: SOT 09:39 | PROVIDERS: Visit Provider Physician Assistant | DX: G56.01 Carpal tunnel syndrome, right upper limb (principal) | CPT/HCPCS: 97022; 97110; 97140; 97165; 97530 ==

== ENCOUNTER 2024-10-25 06:00 | Outpatient (RCR) | payer OTHER, SELFPAY | END 2024-11-21 23:59 | disposition home or self-care (01) | LOC: SOT 06:00 | PROVIDERS: Visit Provider Physician Assistant | DX: G56.01 Carpal tunnel syndrome, right upper limb (principal) | CPT/HCPCS: 97022; 97110; 97140 ==

== ENCOUNTER → 2024-11-19 12:57 | Outpatient (BNVA) | payer OTHER, SELFPAY | PROVIDERS: PCP Family Medicine; Visit Provider Internal Medicine | DX: R42 Dizziness and giddiness (principal); E11.69 Type 2 diabetes mellitus with other specified complication; E78.5 Hyperlipidemia, unspecified; F41.9 Anxiety disorder, unspecified; Z87.891 Personal history of nicotine dependence; Z79.84 Long term (current) use of oral hypoglycemic drugs | CPT/HCPCS: 99213 ==